=== PATIENT | female | born 1960 | race Caucasian/White ===

== ENCOUNTER 2020-05-01 08:18 | Outpatient (REF) | payer BC, SELFPAY ==
[2020-05-01 11:19] LABS: Hemoglobin 13.7 g/dl (12.0-16.0); Mean Corpuscular HGB Conc 31.9 g/dl (31.0-35.0); Mean Corpuscular Hemoglobin 26.8 pg (27.0-33.0); Mean Corpuscular Volume 84.1 fL (80-98); Mean Platelet Volume 10.1 fL (9.4-12.3); Platelet Count 272 X10*3/uL (160-400); Red Blood Count 5.11 X10*6/uL (4.20-5.50); Red Cell Distribution Width 13.8 % (11.0-16.0); White Blood Count 7.3 X10*3/uL (4.8-10.8)
[2020-05-01 11:25] LABS: Estimated Average Glucose 134 mg/dL; Hemoglobin A1c % 6.3 %
[2020-05-01 11:41] LABS: Alanine Aminotransferase 12 U/L (0-31); Albumin Level 4.2 g/dL (3.5-5.0); Alkaline Phosphatase 77 U/L (39-117); Anion Gap 13 (12-20); Aspartate Amino Transferase 16 U/L (5-31); Bilirubin Total 0.4 mg/dL (0.0-1.0); Blood Urea Nitrogen 19 mg/dL (9-16); Calcium 8.9 mg/dL (8.4-10.2); Carbon Dioxide 28 mmol/L (22-29); Chloride 104 mmol/L (96-108); Cholesterol 179 mg/dL; Estimated Glomerular Filt Rate 57; Glucose Fasting 105 mg/dL (60-99); HDL Cholesterol 44 mg/dL; LDL Cholesterol Calculated 117 mg/dl; Potassium 5.1 mmol/l (3.3-5.1); Sodium 140 mmol/L (135-145); Triglycerides 93 mg/dL
[2020-05-01 12:15] LABS: Creatinine Urine 113.46 mg/dL; Microalbumin Urine < 5.0 mg/L
== END 2020-05-01 08:19 | disposition home or self-care (01) ==
LOC: HO.HMGCLDS 08:18
PROVIDERS: PCP Internal Medicine; Visit Provider Internal Medicine
DX: M79.604 Pain in right leg (principal); I10 Essential (primary) hypertension; E11.9 Type 2 diabetes mellitus without complications; J45.30 Mild persistent asthma, uncomplicated; Z00.00 Encounter for general adult medical examination without abnormal findings; E66.01 Morbid (severe) obesity due to excess calories
CPT/HCPCS: 36415; 80053; 80061; 82043; 83036; 85027

== ENCOUNTER → 2020-09-16 12:46 | Outpatient (REF) | payer BC, SELFPAY ==
--- NOTE | 2020-09-16 13:00 | ECG_ITS ---
Hook-up date: 2020-09-16 13:13:00 Duration: 41:43:00 Test Indications: PALPITATIONS Medications: [id number] QRS complexes 5 Ventricular ectopics which represent <1 % of total QRS comp. 105 Supraventricular ectopics which represent <1 % of total QRS comp. * Paced QRS complexs which represent % of total QRS comp. VENTRICULAR ECTOPY 5 Isolated 0 Bigeminal Cycles 0 Couplets 0 Runs 0 Beats in Runs * Beats LONGEST at * BPM at :: -- * Beats FASTEST at * BPM at :: -- SUPRAVENTRICULAR ECTOPY 86 Isolated 2 Couplets 4 Runs 15 Beats in Runs 6 Beats LONGEST at 112 BPM at 21:28:15 2020-09-16 3 Beats FASTEST at 137 BPM at 07:52:01 2020-09-17 HEART RATES 47 MIN at 04:21:24 2020-09-17 75 AVG 121 MAX at 13:17:33 2020-09-16 LONGEST RR 1.4000 secs at 05:16:54 2020-09-17 S-T LEVELS Channel 1 - 128 mm at 13:13:00 2020-09-16 - 128 mm at 13:13:00 2020-09-16 Channel 2 - 128 mm at 13:13:00 2020-09-16 - 128 mm at 13:13:00 2020-09-16 Channel 3 - 128 mm at 03:23:21 -- - 128 mm at 03:23:21 Underlying rhythm is sinus; Average ventricular rate 75/min; range 47-121/min; Rare PACs; isolated beats, couplets, brief runs, longest 6 beats; Rare PVCs; No sustained arrhythmias; Patient did not report any symptoms in the diary Referred By: Amanda Eli Overread By: DELFINA TORRES
== END ==
LOC: HO.CARD 12:46
PROVIDERS: PCP Internal Medicine; Visit Provider Internal Medicine
DX: R00.2 Palpitations (principal)
CPT/HCPCS: 93225; 93226

== ENCOUNTER 2021-04-30 14:09 | Outpatient (REF) | payer BC, SELFPAY ==
--- NOTE | ~2021-04-30 | XR_ITS ---
EXAMINATION: XR SI JOINTS XR HIPS, BILATERAL CLINICAL INFORMATION: Pain sacrococcygeal disorder is not otherwise classified COMPARISON: None TECHNIQUE: 3 views of the SI joints including oblique imaging. 2 views of each hip. FINDINGS: SI Joints: There is no evidence of ankylosis. There is some mild sclerotic change involving the SI joints consistent with degenerative change. This is mostly occurring in the mid to lower SI joint region. Likely degeneration in the lower lumbosacral articulation. Right Hip: Detailed views of the right hip show the femoral head contour to be smooth. There is some axial and inferior joint space loss. Some marginal lipping in the acetabulum. Mild degeneration along the greater trochanter. Mild irregularity at the labral attachment may indicate degeneration here. Mild degeneration in the pubis articulation. Left Hip: Detailed views of the left hip show again some degenerative change along the greater trochanter. There is mild axial joint space loss. Minimal spurring marginally. Again some irregularity at the insertion of the labrum may indicate degeneration here. XR/XR sacroiliac joint 1-2V IMPRESSION: Some evidence of degenerative changes as described. As stated there is no evidence for ankylosis in the SI joints or evidence for an acute bony erosion. 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
--- NOTE | ~2021-04-30 | XR_ITS ---
EXAMINATION: XR SI JOINTS XR HIPS, BILATERAL CLINICAL INFORMATION: Pain sacrococcygeal disorder is not otherwise classified COMPARISON: None TECHNIQUE: 3 views of the SI joints including oblique imaging. 2 views of each hip. FINDINGS: SI Joints: There is no evidence of ankylosis. There is some mild sclerotic change involving the SI joints consistent with degenerative change. This is mostly occurring in the mid to lower SI joint region. Likely degeneration in the lower lumbosacral articulation. Right Hip: Detailed views of the right hip show the femoral head contour to be smooth. There is some axial and inferior joint space loss. Some marginal lipping in the acetabulum. Mild degeneration along the greater trochanter. Mild irregularity at the labral attachment may indicate degeneration here. Mild degeneration in the pubis articulation. Left Hip: Detailed views of the left hip show again some degenerative change along the greater trochanter. There is mild axial joint space loss. Minimal spurring marginally. Again some irregularity at the insertion of the labrum may indicate degeneration here. XR/XR hips SHIRLEY min 3V IMPRESSION: Some evidence of degenerative changes as described. As stated there is no evidence for ankylosis in the SI joints or evidence for an acute bony erosion. 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
== END 2021-04-30 14:10 | disposition home or self-care (01) ==
LOC: HO.HMGCX 14:09
PROVIDERS: PCP Internal Medicine; Visit Provider Internal Medicine
DX: M53.3 Sacrococcygeal disorders, not elsewhere classified (principal); M70.60 Trochanteric bursitis, unspecified hip
CPT/HCPCS: 72200; 73522

== ENCOUNTER 2021-10-13 11:50 | Outpatient (REF) | payer BC, SELFPAY ==
[2021-10-13 12:57] LABS: Influenza A PCR NEGATIVE (Negative); Influenza B PCR NEGATIVE (Negative); Resp Syncy Virus RNA Qual PCR NEGATIVE (Negative); SARS COV2 PCR INHOUSE NEGATIVE (Negative)
== END 2021-10-13 11:51 | disposition home or self-care (01) ==
LOC: HO.LNP 11:50
PROVIDERS: Visit Provider Emergency Medicine
DX: Z20.822 Contact with and (suspected) exposure to COVID-19 (principal); R68.89 Other general symptoms and signs
CPT/HCPCS: 0241U

== ENCOUNTER 2021-11-13 10:14 | Outpatient (REF) | payer BC, SELFPAY ==
[2021-11-13 11:46] LABS: Estimated Average Glucose 120 mg/dL; Hemoglobin A1c % 5.8 %
[2021-11-13 12:01] LABS: Alanine Aminotransferase 11 U/L (0-31); Albumin Level 4.2 g/dL (3.5-5.0); Alkaline Phosphatase 75 U/L (39-117); Anion Gap 13 (12-20); Aspartate Amino Transferase 15 U/L (5-31); Bilirubin Total 0.6 mg/dL (0.0-1.0); Blood Urea Nitrogen 13 mg/dL (9-16); Calcium 9.1 mg/dL (8.4-10.2); Carbon Dioxide 26 mmol/L (22-29); Chloride 105 mmol/L (96-108); Cholesterol 184 mg/dL; Estimated Glomerular Filt Rate > 60; Glucose Fasting 89 mg/dL (60-99); HDL Cholesterol 45 mg/dL; LDL Cholesterol Calculated 124 mg/dl; Potassium 4.1 mmol/L (3.3-5.1); Sodium 140 mmol/L (135-145); Total Protein 6.9 g/dL (6.5-8.0); Triglycerides 75 mg/dL
[2021-11-13 12:08] LABS: Creatinine Urine 162.88 mg/dL; Microalbum/Creatinine Ratio Ur 4.2 ug/mg cr
== END 2021-11-13 10:15 | disposition home or self-care (01) ==
LOC: HO.HMGCLDS 10:14
PROVIDERS: PCP Internal Medicine; Visit Provider Internal Medicine
DX: Z00.00 Encounter for general adult medical examination without abnormal findings (principal); E11.9 Type 2 diabetes mellitus without complications; I10 Essential (primary) hypertension; Z98.890 Other specified postprocedural states
CPT/HCPCS: 36415; 80053; 80061; 82043; 83036

== ENCOUNTER 2022-02-05 08:22 | Outpatient (REF) | payer BC, SELFPAY ==
[2022-02-05 11:27] LABS: Estimated Average Glucose 120 mg/dL; Hemoglobin A1C 149.9073 umol/L; Hemoglobin A1c % 5.8 %
[2022-02-05 11:33] LABS: Alanine Aminotransferase 13 U/L (0-31); Albumin Level 4.2 g/dL (3.5-5.0); Alkaline Phosphatase 86 U/L (39-117); Anion Gap 14 (12-20); Aspartate Amino Transferase 16 U/L (5-31); Bilirubin Total 0.5 mg/dL (0.0-1.0); Blood Urea Nitrogen 15 mg/dL (9-16); Calcium 9.3 mg/dL (8.4-10.2); Carbon Dioxide 28 mmol/L (22-29); Chloride 105 mmol/L (96-108); Cholesterol 177 mg/dL; Estimated Glomerular Filt Rate 59; Glucose Fasting 96 mg/dL (60-99); HDL Cholesterol 45 mg/dL; LDL Cholesterol Calculated 119 mg/dl; Sodium 142 mmol/L (135-145); Triglycerides 66 mg/dL
== END 2022-02-05 08:23 | disposition home or self-care (01) ==
LOC: HO.HMGCLDS 08:22
PROVIDERS: PCP Internal Medicine; Visit Provider Internal Medicine
DX: E11.9 Type 2 diabetes mellitus without complications (principal); I10 Essential (primary) hypertension
CPT/HCPCS: 36415; 80053; 80061; 83036

== ENCOUNTER 2022-08-20 07:29 | Outpatient (REF) | payer BC, SELFPAY ==
[2022-08-20 12:35] LABS: Estimated Average Glucose 114 mg/dL; Hemoglobin A1C 150.6649 umol/L; Hemoglobin A1c % 5.6 %
[2022-08-20 12:42] LABS: Alanine Aminotransferase 11 U/L (0-31); Albumin Level 4.1 g/dL (3.5-5.0); Alkaline Phosphatase 96 U/L (39-117); Anion Gap 13 (12-20); Aspartate Amino Transferase 16 U/L (5-31); Bilirubin Total 0.5 mg/dL (0.0-1.0); Blood Urea Nitrogen 17 mg/dL (9-16); Calcium 9.4 mg/dL (8.4-10.2); Carbon Dioxide 28 mmol/L (22-29); Chloride 108 mmol/L (96-108); Cholesterol 189 mg/dL; Estimated Glomerular Filt Rate 59; Glucose Fasting 100 mg/dL (60-99); HDL Cholesterol 46 mg/dL; LDL Cholesterol Calculated 128 mg/dl; Potassium 5.3 mmol/L (3.3-5.1); Sodium 144 mmol/L (135-145); Total Protein 6.8 g/dL (6.5-8.0); Triglycerides 77 mg/dL
[2022-08-20 12:50] LABS: Creatinine Urine 127.22 mg/dL; Microalbumin Urine < 5.0 mg/L
[2022-08-20 13:00] LABS: TSH reflex Free T4 0.86 uIU/mL (0.32-4.0)
== END 2022-08-20 07:30 | disposition home or self-care (01) ==
LOC: HO.HMGCLDS 07:29
PROVIDERS: PCP Internal Medicine; Visit Provider Internal Medicine
DX: I10 Essential (primary) hypertension (principal); E11.9 Type 2 diabetes mellitus without complications
CPT/HCPCS: 36415; 80053; 80061; 82043; 83036; 84443

== ENCOUNTER 2022-08-31 14:49 | Outpatient (REF) | payer BC, SELFPAY ==
[2022-08-31 17:43] LABS: Anion Gap 14 (12-20); Blood Urea Nitrogen 19 mg/dL (9-16); Calcium 9.1 mg/dL (8.4-10.2); Carbon Dioxide 26 mmol/L (22-29); Chloride 105 mmol/L (96-108); Estimated Glomerular Filt Rate > 60; Glucose Random 90 mg/dL (60-115); Potassium 4.3 mmol/L (3.3-5.1); Sodium 141 mmol/L (135-145)
== END 2022-08-31 14:50 | disposition home or self-care (01) ==
LOC: HO.HMGCLDS 14:49
PROVIDERS: PCP Internal Medicine; Visit Provider Internal Medicine
DX: E87.5 Hyperkalemia (principal)
CPT/HCPCS: 36415; 80048

== ENCOUNTER 2022-12-08 13:40 | Outpatient (AMB) | payer BC, SELFPAY ==
[2022-12-08 13:45] VITALS: BP 118/70; PULSE 80; O2SAT 98; BMI 40.2
--- NOTE | 2022-12-08 13:45 | A.OFFPC_ITS ---
Vital Signs 12/08/22 13:45 Height 5 ft 4 in Weight 234 lb BMI 40.2 BP 118/70 Blood Pressure Location Lt brachial Position Sitting Pulse 80 Pulse Source Pulse Oximeter Pulse Oximetry (%) 98 Oxygen Delivery Method Room Air Intake Visit Reasons: not feeling well Intake Note: Pt is here today for a sick visit. Pt c/o hemorrhoid problem. Allergies lisinopril Adverse Reaction (Unknown, Verified 08/23/22 12:44) Cough Medication List - Last Reconciled 12/08/22 by Amanda Eli MD albuterol sulfate 90 mcg/actuation 2 puffs inhalation Q6H blood sugar diagnostic (Contour Test Strips) test glucose once a day dulaglutide (Trulicity) 0.75 mg (0.5 mL) subcut QWEEK empagliflozin-linagliptin 25-5 mg (Glyxambi) 1 tab PO DAILY estradiol 0.01%(0.1mg/gram) (Estrace) 1 g vaginal 3XW fluticasone propion-salmeterol 115-21 mcg/actuation (Advair HFA) 2 puffs inhalation BID fluticasone propionate 50 mcg/actuation 0 mcg intranasal hydrocortisone 2.5% 1 appl topical BID PRN hydrocortisone acetate (Proctocort) 30 mg [place] BID hydrocortisone acetate 25 mg [place] BID lancets test blood sugar twice a day metoprolol succinate ER 25 mg PO DAILY montelukast 10 mg PO BEDTIME nystatin 1 appl topical BID nystatin 1 appl topical DAILY olmesartan 20 mg PO DAILY Tobacco use date assessed: 12/08/22 Dental Screening Dental Screen Date: 12/08/22 Did you have a dental visit in the last 12 months?: Yes Did you have a dental problem in the last 6 months where you did not have access to dental care?: No Was dental information given to patient?: Patient has dentist HPI not feeling well HPI Details Pt c/o LLQ abd pain on and off for 1 month getting worse for the last few days. Patient reports some nausea decreased appetite and chills. She had a bowel movement with some hematochezia this morning. She denies constipation dysuria or urinary frequency PFSH Medical History Annual physical exam Asthma Atrophic vaginitis Back pain Chronic asthma Hypertension Mammogram normal Neck pain Normal colonoscopy Obesity Palpitations Pulmonary nodules/lesions, multiple Sacroiliac joint disease Shoulder pain, right Trochanteric bursitis Type 2 diabetes mellitus Surgical History Hx of colonoscopy No pertinent past surgical history Family History Father No problems noted. Mother Stroke Son No problems noted. Daughter No problems noted. Social History Housing: House Patient Tobacco Use Status: Never used Tobacco e-Cigarette/Vaping Use: Never Used Second Hand Smoke Exposure: No service: No Current occupational status: employed Current occupational exposures/hazards: No Cognitive needs: No Hearing needs: No Vision needs: No Questionnaire Thrive Questionnaire Date Thrive assessed: 08/23/22 WISAM-7 AMB Questionnaire WISAM-7 Date WISAM - 7 assessed: 08/23/22 Source: Developed by Drs. Gildardo Tomlinson, Claudia Hernandes, González Mason and colleagues, with an educational robyn from [employer]. Review of Systems Const All systems reviewed & are unremarkable except as noted in HPI and below Reports no additional complaints Eyes Reports no additional complaints ENT Reports no additional complaints Card Reports no additional complaints Resp Reports no additional complaints GI Reports no additional complaints Physical exam (Primary Care) Vital Signs: Last Vital Signs Pulse 80 12/08/22 13:45 BP 118/70 12/08/22 13:45 Pulse Ox 98 12/08/22 13:45 Oxygen Delivery Method Room Air 12/08/22 13:45 BMI result Body Mass Index 40.2 Tobacco/Smoking Status: Tobacco use Status Tobacco use date assessed 12/08/22 12/08/22 13:53 Patient Tobacco Use Status Never used Tobacco 12/08/22 13:48 e-Cigarette/Vaping Use Never Used 12/08/22 13:48 Thrive Assessment: Date of Thrive Assessment Date Thrive assessed 08/23/22 12/08/22 13:48 Const General: no acute distress Resp Effort & Inspection: normal respiratory effort Auscultation: clear to auscultation bilaterally Cardio Rhythm: regular rhythm Heart sounds: S1 normal heart sound present and S2 normal heart sound present GI Inspection: Yes normal to inspection Palpation (GI): Soft to palpation, Tenderness to palpation present (GI) in the LLQ and no guarding Percussion: Yes normal to percussion Auscultation: normal bowel sounds Rectal Exam - Female: deferred Assessment and Plan Assessment & Plan (1) Abdominal pain: Comment: LLQ Code(s): R10.9 - Unspecified abdominal pain Plan: Obtain CT of the abdomen pelvis to rule out diverticulitis. Check comprehensive panel and CBC today (2) Diverticulitis: Code(s): K57.92 - Diverticulitis of intestine, part unspecified, without perforation or abscess without bleeding Plan: Obtain CT to rule out diverticulitis Orders: Orders Comprehensive Met. Panel Today R10.9 - Unspecified abdominal pain Complete Blood Count Auto Diff Today R10.9 - Unspecified abdominal pain CT abdomen pelvis wo IV con Today K57.92 - Diverticulitis of intestine, part unspecified, without perforation or abscess without bleeding, R10.9 - Unspecified abdominal pain Medications: New hydrocortisone 2.5% 1 appl topical BID PRN 30 grams 1RF skin irritation Coding Level of Care Code Est Pt Level 3 (29289) Diagnoses Abdominal pain R10.9 Diverticulitis K57.92
== END 2022-12-08 14:15 | disposition home or self-care (01) ==
PROVIDERS: PCP Internal Medicine; Visit Provider Internal Medicine
DX: R10.9 Unspecified abdominal pain (principal); K57.92 Diverticulitis of intestine, part unspecified, without perforation or abscess without bleeding
CPT/HCPCS: 99213

== ENCOUNTER 2022-12-08 14:14 | Outpatient (REF) | payer BC, SELFPAY ==
[2022-12-08 16:07] LABS: MANUAL DIFF FLAG NO
[2022-12-08 16:16] LABS: Basophils Absolute Auto 0.1 X10*3/uL (0.0-0.2); Basophils Percent Auto 0.8 % (0-2); Eosinophils Absolute Auto 0.2 X10*3/uL (0.0-0.4); Eosinophils Percent Auto 1.8 % (0-4); Hematocrit 46.1 % (37.0-47.0); Hemoglobin 14.1 g/dl (12.0-16.0); Imm Gran Abs Auto 0.03 X10*3/uL (0.00-0.03); Imm Gran Pct Auto 0.3 % (0.0-0.4); Lymphocytes Absolute Auto 2.1 X10*3/uL (1.2-4.9); Lymphocytes Percent Auto 24.2 % (20-40); Mean Corpuscular HGB Conc 30.6 g/dl (31.0-35.0); Mean Corpuscular Volume 84.9 fL (80.0-98.0); Mean Platelet Volume 9.6 fL (9.4-12.3); Monocytes Absolute Auto 0.8 X10*3/uL (0.1-1.2); Monocytes Percent Auto 8.8 % (2-11); Neutrophils Absolute Auto 5.6 x10*3/uL (2.0-8.3); Neutrophils Percent Auto 64.1 % (45-73); Platelet Count 248 X10*3/uL (160-400); Red Blood Count 5.43 X10*6/uL (4.20-5.50); Red Cell Distribution Width 13.7 % (11.0-16.0); White Blood Count 8.7 X10*3/uL (4.8-10.8)
[2022-12-08 16:37] LABS: Alanine Aminotransferase 10 U/L (0-31); Albumin Level 4.3 g/dL (3.5-5.0); Alkaline Phosphatase 84 U/L (39-117); Anion Gap 12 (12-20); Aspartate Amino Transferase 17 U/L (5-31); Bilirubin Total 0.3 mg/dL (0.0-1.0); Blood Urea Nitrogen 16 mg/dL (9-16); Calcium 9.7 mg/dL (8.4-10.2); Carbon Dioxide 28 mmol/L (22-29); Chloride 105 mmol/L (96-108); Estimated Glomerular Filt Rate 53; Glucose Random 106 mg/dL (60-115); Potassium 4.5 mmol/L (3.3-5.1); Sodium 140 mmol/L (135-145); Total Protein 7.5 g/dL (6.5-8.0)
== END 2022-12-08 14:15 | disposition home or self-care (01) ==
LOC: HO.HMGCLDS 14:14
PROVIDERS: PCP Internal Medicine; Visit Provider Internal Medicine
DX: R10.9 Unspecified abdominal pain (principal)
CPT/HCPCS: 36415; 80053; 85025

== ENCOUNTER 2022-12-09 12:57 | Outpatient (REF) | payer BC, SELFPAY ==
--- NOTE | ~2022-12-09 | CT_ITS ---
EXAMINATION: CT ABDOMEN AND PELVIS WITHOUT CONTRAST CLINICAL INFORMATION: Diverticulitis. COMPARISON: None available. TECHNIQUE: Multidetector volumetric imaging was performed from the superior aspect of the liver through the pubic symphysis. Sagittal and coronal reformatted images were obtained on the technologist's workstation. This CT examination was performed using dose optimization techniques as appropriate, variously including the following: *Automated exposure control *Adjustment of mA and/or kV according to patient size (this includes techniques or standardized protocols for targeted exams where dose is matched to indication/reason for exam; i.e. extremities or head) *Use of iterative reconstruction technique DLP: 760 mGy-cm FINDINGS: LUNG BASES: The visualized lung bases are unremarkable. LIVER, GALLBLADDER, AND BILIARY TREE: The liver is normal in size, shape, and attenuation. No focal hepatic lesion or biliary ductal dilatation is present. Cholecystectomy. PANCREAS: Unremarkable. SPLEEN: Unremarkable. ADRENAL GLANDS: Unremarkable. KIDNEYS AND URETERS: The kidneys are normal in size, shape, and attenuation. No hydronephrosis, hydroureter, or calculi seen. No perinephric stranding. BLADDER: Unremarkable. GASTROINTESTINAL TRACT: The stomach is unremarkable. Normal caliber small bowel. No obstruction. Normal appendix. No colonic wall thickening or inflammation. Minimal colonic diverticulosis at the sigmoid colon. No diverticulitis. No free air or free fluid. ABDOMINAL WALL: No significant hernia is appreciated. LYMPH NODES: Normal. VASCULAR: Normal caliber aorta. Retroaortic left renal vein. PELVIC VISCERA: Uterus not seen. No adnexal mass. OSSEOUS STRUCTURES: No acute or suspicious osseous abnormality. Mild degenerative change throughout the spine. Mild degenerative change in both hips. CT/CT abdomen pelvis wo IV con IMPRESSION: No acute findings in the abdomen or pelvis. Minimal colonic diverticulosis without diverticulitis. Fleischner guidelines were followed.
[2022-12-09] MEDS: Barium Sulfate Oral (Vanilla) 450 ML ORAL.SUSP 900 ML PO (15:19)
== END 2022-12-09 12:58 | disposition home or self-care (01) ==
LOC: HO.CT 12:57
PROVIDERS: PCP Internal Medicine; Visit Provider Internal Medicine
DX: K57.92 Diverticulitis of intestine, part unspecified, without perforation or abscess without bleeding (principal); R10.9 Unspecified abdominal pain
CPT/HCPCS: 74176

== ENCOUNTER 2022-12-29 06:49 | Outpatient (REF) | payer BC, SELFPAY ==
[2022-12-29 11:25] LABS: MANUAL DIFF FLAG NO
[2022-12-29 12:03] LABS: Basophils Percent Auto 0.7 % (0-2); Eosinophils Absolute Auto 0.1 X10*3/uL (0.0-0.4); Eosinophils Percent Auto 1.5 % (0-4); Hematocrit 47.4 % (37.0-47.0); Hemoglobin 14.8 g/dl (12.0-16.0); Imm Gran Abs Auto 0.02 X10*3/uL (0.00-0.03); Imm Gran Pct Auto 0.3 % (0.0-0.4); Lymphocytes Absolute Auto 1.8 X10*3/uL (1.2-4.9); Lymphocytes Percent Auto 30.7 % (20-40); Mean Corpuscular HGB Conc 31.2 g/dl (31.0-35.0); Mean Corpuscular Hemoglobin 26.4 pg (27.0-33.0); Mean Corpuscular Volume 84.6 fL (80.0-98.0); Mean Platelet Volume 9.8 fL (9.4-12.3); Monocytes Absolute Auto 0.6 X10*3/uL (0.1-1.2); Monocytes Percent Auto 9.3 % (2-11); Neutrophils Absolute Auto 3.4 x10*3/uL (2.0-8.3); Neutrophils Percent Auto 57.5 % (45-73); Platelet Count 233 X10*3/uL (160-400); Red Cell Distribution Width 13.8 % (11.0-16.0); White Blood Count 5.9 X10*3/uL (4.8-10.8)
[2022-12-29 12:08] LABS: Estimated Average Glucose 111 mg/dL; Hemoglobin A1C 145.3914 umol/L; Hemoglobin A1c % 5.5 %
[2022-12-29 12:24] LABS: Alanine Aminotransferase 12 U/L (0-31); Albumin Level 4.4 g/dL (3.5-5.0); Alkaline Phosphatase 78 U/L (39-117); Anion Gap 14 (12-20); Aspartate Amino Transferase 17 U/L (5-31); Bilirubin Total 0.6 mg/dL (0.0-1.0); Blood Urea Nitrogen 15 mg/dL (9-16); Calcium 10.3 mg/dL (8.4-10.2); Carbon Dioxide 27 mmol/L (22-29); Chloride 105 mmol/L (96-108); Cholesterol 203 mg/dL; Estimated Glomerular Filt Rate 55; Glucose Fasting 103 mg/dL (60-99); HDL Cholesterol 52 mg/dL; LDL Cholesterol Calculated 133 mg/dl; Potassium 5.1 mmol/L (3.3-5.1); Sodium 141 mmol/L (135-145); Total Protein 7.8 g/dL (6.5-8.0); Triglycerides 93 mg/dL
[2022-12-29 12:31] LABS: TSH reflex Free T4 0.96 uIU/mL (0.32-4.0)
[2022-12-29 12:51] LABS: Creatinine Urine 138.45 mg/dL; Microalbum/Creatinine Ratio Ur 3.6 ug/mg cr
== END 2022-12-29 06:50 | disposition home or self-care (01) ==
LOC: HO.HMGCLDS 06:49
PROVIDERS: PCP Internal Medicine; Visit Provider Internal Medicine
DX: E11.9 Type 2 diabetes mellitus without complications (principal); I10 Essential (primary) hypertension
CPT/HCPCS: 36415; 80053; 80061; 82043; 83036; 84443; 85025

== ENCOUNTER 2023-01-02 13:58 | Outpatient (AMB) | payer BC, SELFPAY ==
--- NOTE | 2023-01-02 14:21 | MHC.PC.OV ---
Vital Signs 01/02/23 14:45 Height 5 ft 4 in Weight 237 lb BMI 40.7 BP 116/70 Blood Pressure Location Lt brachial Position Sitting Pulse 86 Pulse Source Pulse Oximeter Pulse Oximetry (%) 96 Oxygen Delivery Method Room Air Intake Visit Reasons: 4 month follow up DM Intake Note: Pt is here today for 4 months follow up visit on DM. Allergies lisinopril Adverse Reaction (Unknown, Verified 08/23/22 12:44) Cough Medication List - Last Reconciled 01/02/23 by Amanda Eli MD albuterol sulfate 90 mcg/actuation 2 puffs inhalation Q6H blood sugar diagnostic (Contour Test Strips) test glucose once a day dicyclomine 10 mg PO TID empagliflozin 25 mg PO DAILY estradiol 0.01%(0.1mg/gram) (Estrace) 1 g vaginal 3XW fluticasone propion-salmeterol 115-21 mcg/actuation (Advair HFA) 2 puffs inhalation BID fluticasone propionate 50 mcg/actuation 0 mcg intranasal hydrocortisone 2.5% 1 appl topical BID PRN hydrocortisone acetate (Proctocort) 30 mg [place] BID hydrocortisone acetate 25 mg VA BID lancets test blood sugar twice a day metoprolol succinate ER 25 mg PO DAILY montelukast 10 mg PO BEDTIME nystatin 1 appl topical BID nystatin 1 appl topical DAILY olmesartan 20 mg PO DAILY Trulicity (dulaglutide) 1.5 mg (0.5 mL) subcut QWEEK NS Tobacco use date assessed: 12/08/22 Dental Screening Dental Screen Date: 01/02/23 Did you have a dental visit in the last 12 months?: Yes Did you have a dental problem in the last 6 months where you did not have access to dental care?: No Was dental information given to patient?: Patient has dentist HPI 4 month follow up DM HPI Details Patient presents for the follow-up of diabetes hypertension, chronic asthma stable on current medications [facility] Medical History Annual physical exam Asthma Atrophic vaginitis Back pain Chronic asthma Hypertension Mammogram normal Neck pain Normal colonoscopy Obesity Palpitations Pulmonary nodules/lesions, multiple Sacroiliac joint disease Shoulder pain, right Trochanteric bursitis Type 2 diabetes mellitus Surgical History Hx of colonoscopy No pertinent past surgical history Family History Father No problems noted. Mother Stroke Son No problems noted. Daughter No problems noted. Social History Housing: House Patient Tobacco Use Status: Never used Tobacco e-Cigarette/Vaping Use: Never Used Second Hand Smoke Exposure: No service: No Current occupational status: employed Current occupational exposures/hazards: No Cognitive needs: No Hearing needs: No Vision needs: No Questionnaire Thrive Questionnaire Date Thrive assessed: 08/23/22 WISAM-7 AMB Questionnaire WISAM-7 Date WISAM - 7 assessed: 08/23/22 Source: Developed by Drs. Gildardo Tomlinson, Claudia Hernandes, González Mason and colleagues, with an educational robyn from [employer]. Review of Systems Const All systems reviewed & are unremarkable except as noted in HPI and below Reports no additional complaints Eyes Reports no additional complaints ENT Reports no additional complaints Card Reports no additional complaints Resp Reports no additional complaints GI Reports no additional complaints Physical exam (Primary Care) Vital Signs: Last Vital Signs Pulse 86 01/02/23 14:45 BP 116/70 01/02/23 14:45 Pulse Ox 96 01/02/23 14:45 Oxygen Delivery Method Room Air 01/02/23 14:45 BMI result Body Mass Index 40.7 Tobacco/Smoking Status: Tobacco use Status Tobacco use date assessed 12/08/22 01/02/23 14:22 Patient Tobacco Use Status Never used Tobacco 01/02/23 14:22 e-Cigarette/Vaping Use Never Used 01/02/23 14:22 Thrive Assessment: Date of Thrive Assessment Date Thrive assessed 08/23/22 01/02/23 14:22 Const General: no acute distress HENMT Ears: hearing grossly normal bilaterally Face and sinus: Yes normal facial exam Neck Neck: Yes supple Resp Effort & Inspection: normal respiratory effort Auscultation: clear to auscultation bilaterally Cardio Rhythm: regular rhythm Heart sounds: S1 normal heart sound present and S2 normal heart sound present GI Inspection: Yes normal to inspection Palpation (GI): Soft to palpation Assessment and Plan Assessment & Plan (1) Type 2 diabetes mellitus: Code(s): E11.9 - Type 2 diabetes mellitus without complications Plan: A1c is 5.5 change Glyxambi to Farxiga 25 mg and increase Trulicity to 1.5 mg weekly decrease caloric intake increase physical activity discussed with the patient. She will follow-up in 3 months (2) Hypertension: Code(s): I10 - Essential (primary) hypertension Plan: Continue current medications (3) Asthma: Code(s): J45.909 - Unspecified asthma, uncomplicated Plan: Continue inhalers (4) Obesity: Code(s): E66.9 - Obesity, unspecified Plan: Weight loss discussed with the patient (5) Hyperlipidemia: Code(s): E78.5 - Hyperlipidemia, unspecified Plan: Low-cholesterol diet weight loss increase exercise discussed with the patient follow-up in 3 months with fasting labs before Orders: Orders Comprehensive Wirt. Panel Fast 3 Months E11.9 - Type 2 diabetes mellitus without complications, I10 - Essential (primary) hypertension Complete Blood Count Auto Diff 3 Months E11.9 - Type 2 diabetes mellitus without complications, I10 - Essential (primary) hypertension Hemoglobin A1c 3 Months E11.9 - Type 2 diabetes mellitus without complications, I10 - Essential (primary) hypertension Lipid Panel 3 Months E11.9 - Type 2 diabetes mellitus without complications, I10 - Essential (primary) hypertension Microalbumin, Random (w Creat) 3 Months E11.9 - Type 2 diabetes mellitus without complications, I10 - Essential (primary) hypertension Medications: New Trulicity (dulaglutide) 1.5 mg (0.5 mL) subcut QWEEK 6 mL 3RF NS empagliflozin 25 mg PO DAILY 90 tabs 1RF Discontinued empagliflozin-linagliptin 25-5 mg (Glyxambi) Discontinued Reason: Doctor's Order 1 tab PO DAILY 90 tabs 3RF dulaglutide (Trulicity) Discontinued Reason: Doctor's Order 0.75 mg (0.5 mL) subcut QWEEK 6 mL 3RF dicyclomine Future refills from [facility] Discontinued Reason: Doctor's Order 10 mg PO TID 60 caps 0RF Coding Level of Care Code Est Pt Level 4 (79962) Diagnoses Type 2 diabetes mellitus E11.9 Hypertension I10 Asthma J45.909 Obesity E66.9 Hyperlipidemia E78.5
[2023-01-02 14:45] VITALS: BP 116/70; PULSE 86; O2SAT 96; BMI 40.7
== END 2023-01-02 15:26 | disposition home or self-care (01) ==
PROVIDERS: Visit Provider Internal Medicine
DX: E11.9 Type 2 diabetes mellitus without complications (principal); I10 Essential (primary) hypertension; E66.9 Obesity, unspecified; Z68.41 Body mass index [BMI] 40.0-44.9, adult; J45.909 Unspecified asthma, uncomplicated; E78.5 Hyperlipidemia, unspecified
CPT/HCPCS: 99214

== ENCOUNTER 2023-03-06 14:52 | Outpatient (AMB) | payer BC, SELFPAY ==
--- NOTE | 2023-03-06 14:57 | AM.OFFVISNUR ---
Intake Intake Visit Reasons: Flu shot Allergies lisinopril Adverse Reaction (Unknown, Verified 08/23/22 12:44) Cough Office Procedures Flu Questionnaire Does the patient have a severe egg allergy?: No Does the patient have severe life threatening allergies?: No Does the patient have a fever or illness today?: No Has the patient ever had Guillain-Davenport Syndrome?: No Has the patient ever had any past reaction to a flu shot?: No Immunizations flu vacc [id number] 6mos up(PF) 60 mcg(15 mcgx4)/0.5 mL IM syringe Performing Provider: Amanda Eli MD Performing [place] [facility] Administered by: JANEEN Billingsley on 03/06/23 14:57 Dose Route Admin Location Dispensed Lot Number Expiration Date NDC [employer] 0.5 mL IM Left Deltoid 0.5 mL [id number] 11/19/23 [id number] [employer] VIS Given Date VIS Provided VIS Publication Date 03/06/23 Single Vaccine 20 Eligibility Eligibility Date Funding Source Not [facility] Eligible 03/06/23 Private Coding Assessment & Plan Assessment & Plan Orders: Orders Influenza [id number] Immunization Today Z23 - Encounter for immunization
== END 2023-03-06 14:58 | disposition home or self-care (01) ==
LOC: HO.HMGC 14:52
PROVIDERS: PCP Internal Medicine; Visit Provider Internal Medicine
DX: Z23 Encounter for immunization (principal)
CPT/HCPCS: 90471; 90686

== ENCOUNTER 2023-04-01 10:13 | Outpatient (REF) | payer BC, SELFPAY ==
[2023-04-01 12:02] LABS: MANUAL DIFF FLAG NO
[2023-04-01 12:12] LABS: Basophils Absolute Auto 0.1 X10*3/uL (0.0-0.2); Basophils Percent Auto 0.6 % (0-2); Eosinophils Absolute Auto 0.1 X10*3/uL (0.0-0.4); Eosinophils Percent Auto 1.1 % (0-4); Hematocrit 45.2 % (37.0-47.0); Hemoglobin 14.3 g/dl (12.0-16.0); Imm Gran Abs Auto 0.02 X10*3/uL (0.00-0.03); Imm Gran Pct Auto 0.2 % (0.0-0.4); Lymphocytes Absolute Auto 2.5 X10*3/uL (1.2-4.9); Lymphocytes Percent Auto 30.1 % (20-40); Mean Corpuscular HGB Conc 31.6 g/dl (31.0-35.0); Mean Corpuscular Hemoglobin 26.8 pg (27.0-33.0); Mean Corpuscular Volume 84.6 fL (80.0-98.0); Mean Platelet Volume 10.1 fL (9.4-12.3); Monocytes Absolute Auto 0.7 X10*3/uL (0.1-1.2); Monocytes Percent Auto 8.4 % (2-11); Neutrophils Absolute Auto 4.9 x10*3/uL (2.0-8.3); Neutrophils Percent Auto 59.6 % (45-73); Platelet Count 249 X10*3/uL (160-400); Red Blood Count 5.34 X10*6/uL (4.20-5.50); Red Cell Distribution Width 13.8 % (11.0-16.0); White Blood Count 8.2 X10*3/uL (4.8-10.8)
[2023-04-01 12:19] LABS: Estimated Average Glucose 117 mg/dL; Hemoglobin A1c % 5.7 % (<6.0)
[2023-04-01 12:28] LABS: Alanine Aminotransferase 11 U/L (0-31); Albumin Level 4.2 g/dL (3.5-5.0); Alkaline Phosphatase 75 U/L (39-117); Anion Gap 11 (12-20); Aspartate Amino Transferase 18 U/L (5-31); Bilirubin Total 0.5 mg/dL (0.0-1.0); Blood Urea Nitrogen 16 mg/dL (9-16); Calcium 9.4 mg/dL (8.4-10.2); Carbon Dioxide 28 mmol/L (22-29); Chloride 103 mmol/L (96-108); Cholesterol 170 mg/dL (<200); Estimated Glomerular Filt Rate > 60; Glucose Fasting 86 mg/dL (60-99); HDL Cholesterol 44 mg/dL (>40); LDL Cholesterol Calculated 113 mg/dL (<100); Potassium 4.3 mmol/L (3.3-5.1); Sodium 138 mmol/L (135-145); Total Protein 7.3 g/dL (6.5-8.0); Triglycerides 65 mg/dL (<150)
[2023-04-01 13:37] LABS: Creatinine Urine 111.12 mg/dL; Microalbumin Urine < 5.0 mg/L
== END 2023-04-01 10:14 | disposition home or self-care (01) ==
LOC: HO.HMGCLDS 10:13
PROVIDERS: PCP Internal Medicine; Visit Provider Internal Medicine
DX: I10 Essential (primary) hypertension (principal); E11.9 Type 2 diabetes mellitus without complications
CPT/HCPCS: 36415; 80053; 80061; 82043; 82570; 83036; 85025

== ENCOUNTER 2023-04-07 14:13 | Outpatient (AMB) | payer BC, SELFPAY ==
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
[2023-04-07 14:51] VITALS: BP 120/70; PULSE 81; O2SAT 99; BMI 39.1
== END 2023-04-07 15:18 | disposition home or self-care (01) ==
LOC: HO.HMGC 14:13
PROVIDERS: PCP Internal Medicine; Visit Provider Internal Medicine
DX: E11.9 Type 2 diabetes mellitus without complications (principal); I10 Essential (primary) hypertension; M25.551 Pain in right hip; M25.552 Pain in left hip; E66.9 Obesity, unspecified; E78.5 Hyperlipidemia, unspecified; Z68.39 Body mass index [BMI] 39.0-39.9, adult
CPT/HCPCS: 99214

== ENCOUNTER 2023-04-07 15:16 | Outpatient (REF) | payer BC, SELFPAY ==
--- NOTE | ~2023-04-07 | XR_ITS ---
EXAMINATION: XR HIP, LEFT CLINICAL INFORMATION: Pain COMPARISON: Hip radiographs 04/30/2021 TECHNIQUE: Two views of the left hip. FINDINGS: No acute fracture or dislocation. Mild osteoarthritis of the hip with small acetabular osteophytes and subchondral cystic change similar to prior. Soft tissues are unremarkable. XR/XR hip LT min 2V IMPRESSION: Mild degenerative changes of the hip similar to prior.
--- NOTE | ~2023-04-07 | XR_ITS ---
EXAMINATION: XR HIP, RIGHT CLINICAL INFORMATION: Bilateral hip pain. COMPARISON: 04/30/2021 radiographs of bilateral hips. TECHNIQUE: Two views of the right hip. FINDINGS: Axial and lateral right hip joint space narrowing with prominent lateral acetabular hypertrophic change. Soft tissue ossific/calcific densities superior to the greater trochanter. Degenerative changes on limited views of the inferior aspect of the right sacroiliac joint. XR/XR hip RT min 2V IMPRESSION: Advanced degenerative changes in the right hip, progressed since 04/30/2021. Correlation with the clinical exam recommended to determine further management. If there is concern for fracture or other underlying pathology, MRI could be obtained for further evaluation.
== END 2023-04-07 15:17 | disposition home or self-care (01) ==
LOC: HO.HMGCX 15:16
PROVIDERS: PCP Internal Medicine; Visit Provider Internal Medicine
DX: M25.552 Pain in left hip (principal); M25.551 Pain in right hip
CPT/HCPCS: 73502

== ENCOUNTER 2023-08-12 07:12 | Outpatient (REF) | payer BC, SELFPAY ==
[2023-08-12 11:12] LABS: MANUAL DIFF FLAG NO
[2023-08-12 11:22] LABS: Basophils Percent Auto 0.2 % (0-2); Hematocrit 47.2 % (37.0-47.0); Hemoglobin 14.9 g/dl (12.0-16.0); Imm Gran Abs Auto 0.05 X10*3/uL (0.00-0.03); Imm Gran Pct Auto 0.5 % (0.0-0.4); Lymphocytes Absolute Auto 1.4 X10*3/uL (1.2-4.9); Lymphocytes Percent Auto 12.5 % (20-40); Mean Corpuscular HGB Conc 31.6 g/dl (31.0-35.0); Mean Corpuscular Hemoglobin 27.8 pg (27.0-33.0); Mean Corpuscular Volume 88.1 fL (80.0-98.0); Mean Platelet Volume 10.2 fL (9.4-12.3); Monocytes Absolute Auto 0.6 X10*3/uL (0.1-1.2); Monocytes Percent Auto 5.3 % (2-11); Neutrophils Percent Auto 81.5 % (45-73); Platelet Count 275 X10*3/uL (160-400); Red Blood Count 5.36 X10*6/uL (4.20-5.50); Red Cell Distribution Width 14.5 % (11.0-16.0)
[2023-08-12 11:30] LABS: Estimated Average Glucose 111 mg/dL; Hemoglobin A1c % 5.5 % (<6.0)
[2023-08-12 11:44] LABS: Alanine Aminotransferase 27 U/L (0-31); Albumin Level 4.3 g/dL (3.5-5.0); Alkaline Phosphatase 94 U/L (39-117); Anion Gap 14 (12-20); Aspartate Amino Transferase 20 U/L (5-31); Bilirubin Total 0.6 mg/dL (0.0-1.0); Blood Urea Nitrogen 24 mg/dL (9-16); Calcium 9.8 mg/dL (8.4-10.2); Carbon Dioxide 24 mmol/L (22-29); Chloride 106 mmol/L (96-108); Cholesterol 127 mg/dL (<200); Estimated Glomerular Filt Rate > 60; Glucose Fasting 110 mg/dL (60-99); HDL Cholesterol 59 mg/dL (>40); LDL Cholesterol Calculated 58 mg/dL (<100); Potassium 4.9 mmol/L (3.3-5.1); Sodium 139 mmol/L (135-145); Total Protein 7.5 g/dL (6.5-8.0); Triglycerides 51 mg/dL (<150)
[2023-08-12 11:57] LABS: Creatinine Urine 89.61 mg/dL; Microalbum/Creatinine Ratio Ur 6.6 ug/mg cr (<30)
[2023-08-12 12:02] LABS: TSH reflex Free T4 0.72 uIU/mL (0.32-4.0)
== END 2023-08-12 07:13 | disposition home or self-care (01) ==
LOC: HO.HMGCLDS 07:12
PROVIDERS: PCP Internal Medicine; Visit Provider Internal Medicine
DX: E11.9 Type 2 diabetes mellitus without complications (principal); E78.5 Hyperlipidemia, unspecified; I10 Essential (primary) hypertension
CPT/HCPCS: 36415; 80053; 80061; 82043; 82570; 83036; 84443; 85025

== ENCOUNTER 2023-08-29 12:47 | Outpatient (AMB) | payer BC, SELFPAY ==
--- NOTE | 2023-08-29 12:48 | A.OFFPC_ITS ---
Vital Signs 08/29/23 12:49 Height 5 ft 4 in Weight 214 lb BMI 36.7 BP 118/72 Blood Pressure Location Lt brachial Position Sitting Pulse 86 Pulse Source Pulse Oximeter Pulse Oximetry (%) 97 Oxygen Delivery Method Room Air Intake Visit Reasons: PE Intake Note: Pt is here today for PE. Allergies lisinopril Adverse Reaction (Unknown, Verified 08/29/23 13:05) Cough Medication List - Last Reconciled 08/29/23 by Amanda Eli MD albuterol sulfate 90 mcg/actuation 2 puffs inhalation Q6H atorvastatin 40 mg PO BEDTIME blood sugar diagnostic (Contour Test Strips) test glucose once a day dulaglutide (Trulicity) 0.75 mg (0.5 mL) subcut QWEEK estradiol 0.01%(0.1mg/gram) (Estrace) 1 g vaginal 3XW Glyxambi 25-5 mg (empagliflozin-linagliptin) 1 tab PO DAILY NS lancets test blood sugar twice a day meloxicam 15 mg PO DAILY montelukast 10 mg PO BEDTIME olmesartan 20 mg PO DAILY Tobacco use date assessed: 08/29/23 Dental Screening Dental Screen Date: 08/29/23 Did you have a dental visit in the last 12 months?: Yes Did you have a dental problem in the last 6 months where you did not have access to dental care?: No Was dental information given to patient?: Patient has dentist HPI PE HPI Details Pt presents for PE. Pt was dxd with recurrent R breast ca and has f/u with [facility] to discuss treatment options. [facility] Medical History (Updated 08/29/23 @ 13:56 by Amanda Eli MD) Sacroiliac joint disease Trochanteric bursitis Asthma Atrophic vaginitis Shoulder pain, right Pulmonary nodules/lesions, multiple Mammogram normal Normal colonoscopy Palpitations Obesity Annual physical exam Chronic asthma Type 2 diabetes mellitus Hypertension Back pain Neck pain Surgical History Hx of hysterectomy Hx of colonoscopy No pertinent past surgical history Family History Father No problems noted. Mother Stroke Son No problems noted. Daughter No problems noted. Social History Housing: House Patient Tobacco Use Status: Never used Tobacco e-Cigarette/Vaping Use: Never Used Second Hand Smoke Exposure: No service: No Current occupational status: employed Current occupational exposures/hazards: No Cognitive needs: No Hearing needs: No Vision needs: No Questionnaire PHQ-9 Over the last 2 weeks, how often have you been bothered by any of the following problems? 1. Little interest or pleasure in doing things: not at all 2. Feeling down, depressed, or hopeless: not at all 3. Trouble falling or staying asleep, or sleeping too much: not at all 4. Feeling tired or having little energy: not at all 5. Poor appetite or overeating: not at all 6. Feeling bad about yourself - or that you are a failure or have let yourself or your family down: not at all 7. Trouble concentrating on things, such as reading the newspaper or watching television: not at all 8. Moving or speaking so slowly that other people could have noticed. Or the opposite - being so fidgety or restless that you have been moving around a lot more than usual: not at all 9. Thoughts that you would be better off or of hurting yourself in some way: not at all Total score: 0 Depression Screening Interpretation: Negative Depression Screening Done: Yes Source: Developed by Drs. Gildardo Tomlinson, Claudia Hernandes, González Mason and colleagues, with an educational robyn from [employer]. Thrive Questionnaire Date Thrive assessed: 08/29/23 I am a: Patient What is your living situation today?: I have a steady place to live Within the past 12 months, did the food you bought not last and you didn't have the money to get more?: Never true Within the past 12 months, did you worry whether your food would run out before you got money to buy more?: Never true Do you have trouble paying for medicines?: No Do you have trouble getting transportation to medical appointments?: No Do you have trouble paying your heating and electricity bill?: No Do you have trouble taking care of your child, family member or friend?: No Do you have trouble with day-to-day activities such as bathing, preparing meals, shopping, managing finances, etc.?: No Are you currently unemployed and looking for a job?: No Are you interested in more education?: No Please select the resources that you would like help with: None THRIVE Score: 0 AUDIT C Alcohol Use Questionnaire (AUDIT-C) 1. How often do you have a drink containing alcohol?: Never 3. How often do you have six or more drinks on one occasion?: Never Total Score: 0 WISAM-7 AMB Questionnaire WISAM-7 Date WISAM - 7 assessed: 08/29/23 Feeling nervous, anxious, or on edge: 0 = Not at all Not being able to stop or control worryin = Not at all Worrying too much about different things: 0 = Not at all Trouble relaxin = Not at all Being so restless that it is hard to sit still: 0 = Not at all Becoming easily annoyed or irritable: 0 = Not at all Feeling afraid as if something awful might happen: 0 = Not at all Total WISAM-7 score (0-4 normal; 5-9 mild; 10-14 moderate; 15-21 severe): 0 Source: Developed by Drs. Gildardo Tomlinson, Claudia Hernandes, González Mason and colleagues, with an educational robyn from [employer]. Review of Systems Const All systems reviewed & are unremarkable except as noted in HPI and below Reports no additional complaints Eyes Reports no additional complaints ENT Reports no additional complaints Card Reports no additional complaints Resp Reports no additional complaints GI Reports no additional complaints Reports no additional complaints Physical exam (Primary Care) Vital Signs: Last Vital Signs Pulse 86 08/29/23 12:49 BP 118/72 08/29/23 12:49 Pulse Ox 97 08/29/23 12:49 Oxygen Delivery Method Room Air 08/29/23 12:49 BMI result Body Mass Index 36.7 Tobacco/Smoking Status: Tobacco use Status Tobacco use date assessed 08/29/23 08/29/23 13:11 Patient Tobacco Use Status Never used Tobacco 08/29/23 13:11 e-Cigarette/Vaping Use Never Used 08/29/23 12:50 PHQ-9: PHQ-9 Score PHQ-9: Total score 0 08/29/23 13:11 Depression Screening Interpretation: Negative Thrive Assessment: Date of Thrive Assessment Date Thrive assessed 08/29/23 08/29/23 13:11 Const General: no acute distress HENMT Head: Yes normal to inspection Face and sinus: Yes normal facial exam Mouth: Normal oral and palatal mucosa present Eyes General: appearance normal, both eyes and all related structures Neck Neck: Yes no lymphadenopathy and Yes supple Resp Effort & Inspection: normal respiratory effort Auscultation: clear to auscultation bilaterally Cardio Rhythm: regular rhythm Heart sounds: S1 normal heart sound present and S2 normal heart sound present GI Inspection: Yes normal to inspection Percussion: Yes normal to percussion Auscultation: normal bowel sounds Assessment and Plan Assessment & Plan (1) Hypertension: Code(s): I10 - Essential (primary) hypertension Plan: Continue current medications (2) Type 2 diabetes mellitus: Code(s): E11.9 - Type 2 diabetes mellitus without complications Plan: A1c is 5.5, continue ADA diet regular exercise weight loss discussed with the patient. Continue current medications follow-up in 4 months with a fasting labs before (3) Normal colonoscopy: Comment: 01/2015 repeat 10 years (4) Hyperlipidemia: Comment: Cardiac cath for abnormal stress test, [facility], no significant stenosis 07/15 Code(s): E78.5 - Hyperlipidemia, unspecified Plan: Patient was advised to continue atorvastatin for primary prevention (5) Breast cancer: Comment: recurrent R breast f/u [facility] oncology 07/2023 Code(s): C50.919 - Malignant neoplasm of unspecified site of unspecified female breast Plan: f/u with oncology Orders: Orders Comprehensive [place]. Panel Fast 4 Months E11.9 - Type 2 diabetes mellitus without complications, E78.5 - Hyperlipidemia, unspecified, I10 - Essential (primary) hypertension Microalbumin, Random (w Creat) 4 Months E11.9 - Type 2 diabetes mellitus without complications, E78.5 - Hyperlipidemia, unspecified, I10 - Essential (primary) hypertension Hemoglobin A1c 4 Months E11.9 - Type 2 diabetes mellitus without complications, E78.5 - Hyperlipidemia, unspecified, I10 - Essential (primary) hypertension Lipid Panel 4 Months E11.9 - Type 2 diabetes mellitus without complications, E78.5 - Hyperlipidemia, unspecified, I10 - Essential (primary) hypertension Complete Blood Count Auto Diff 4 Months E11.9 - Type 2 diabetes mellitus without complications, E78.5 - Hyperlipidemia, unspecified, I10 - Essential (primary) hypertension Vitamin D 25-OH Total 4 Months E11.9 - Type 2 diabetes mellitus without complications, E78.5 - Hyperlipidemia, unspecified, I10 - Essential (primary) hypertension Coding Level of Care Code Est Pt Prev Care 40-64y(92870) Diagnoses Hypertension I10 Type 2 diabetes mellitus E11.9 Normal colonoscopy Hyperlipidemia E78.5 Breast cancer C50.919
[2023-08-29 12:49] VITALS: BP 118/72; PULSE 86; O2SAT 97; BMI 36.7
== END 2023-08-29 13:49 | disposition home or self-care (01) ==
PROVIDERS: PCP Internal Medicine; Visit Provider Internal Medicine
DX: Z00.00 Encounter for general adult medical examination without abnormal findings (principal); E11.9 Type 2 diabetes mellitus without complications; C50.919 Malignant neoplasm of unspecified site of unspecified female breast; I10 Essential (primary) hypertension; E78.5 Hyperlipidemia, unspecified
CPT/HCPCS: 99396

== ENCOUNTER 2023-12-22 09:41 | Outpatient (REF) | payer BC, SELFPAY ==
[2023-12-22 13:17] LABS: MANUAL DIFF FLAG NO
[2023-12-22 13:24] LABS: Basophils Percent Auto 0.5 % (0-2); Eosinophils Absolute Auto 0.1 X10*3/uL (0.0-0.4); Eosinophils Percent Auto 1.7 % (0-4); Hemoglobin 14.3 g/dl (12.0-16.0); Imm Gran Abs Auto 0.02 X10*3/uL (0.00-0.03); Imm Gran Pct Auto 0.3 % (0.0-0.4); Lymphocytes Absolute Auto 1.9 X10*3/uL (1.2-4.9); Lymphocytes Percent Auto 25.9 % (20-40); Mean Corpuscular HGB Conc 31.1 g/dl (31.0-35.0); Mean Corpuscular Hemoglobin 25.9 pg (27.0-33.0); Mean Corpuscular Volume 83.3 fL (80.0-98.0); Monocytes Absolute Auto 0.7 X10*3/uL (0.1-1.2); Monocytes Percent Auto 9.3 % (2-11); Neutrophils Absolute Auto 4.7 x10*3/uL (2.0-8.3); Neutrophils Percent Auto 62.3 % (45-73); Platelet Count 251 X10*3/uL (160-400); Red Blood Count 5.52 X10*6/uL (4.20-5.50); Red Cell Distribution Width 13.9 % (11.0-16.0); White Blood Count 7.5 X10*3/uL (4.8-10.8)
[2023-12-22 13:33] LABS: Estimated Average Glucose 114 mg/dL; Hemoglobin A1c % 5.6 % (<6.0)
[2023-12-22 13:46] LABS: Alanine Aminotransferase 17 U/L (0-31); Albumin Level 4.3 g/dL (3.5-5.0); Alkaline Phosphatase 76 U/L (39-117); Anion Gap 12 (12-20); Aspartate Amino Transferase 21 U/L (5-31); Bilirubin Total 0.5 mg/dL (0.0-1.0); Blood Urea Nitrogen 13 mg/dL (9-16); Calcium 9.8 mg/dL (8.4-10.2); Carbon Dioxide 28 mmol/L (22-29); Chloride 106 mmol/L (96-108); Cholesterol 114 mg/dL (<200); Estimated Glomerular Filt Rate > 60; Glucose Fasting 103 mg/dL (60-99); HDL Cholesterol 51 mg/dL (>40); LDL Cholesterol Calculated 50 mg/dL (<100); Potassium 4.8 mmol/L (3.3-5.1); Sodium 141 mmol/L (135-145); Total Protein 7.4 g/dL (6.5-8.0); Triglycerides 69 mg/dL (<150)
[2023-12-22 14:02] LABS: Vitamin D 25-OH Total 39.4 ng/mL (>30)
[2023-12-22 14:44] LABS: Creatinine Urine 105.38 mg/dL; Microalbumin Urine < 5.0 mg/L
== END 2023-12-22 09:42 | disposition home or self-care (01) ==
LOC: HO.HMGCLDS 09:41
PROVIDERS: PCP Internal Medicine; Visit Provider Internal Medicine
DX: E78.5 Hyperlipidemia, unspecified (principal); E11.9 Type 2 diabetes mellitus without complications; I10 Essential (primary) hypertension
CPT/HCPCS: 36415; 80053; 80061; 82043; 82306; 82570; 83036; 85025

== ENCOUNTER 2024-01-01 13:51 | Outpatient (AMB) | payer BC, SELFPAY ==
[2024-01-01 13:59] VITALS: BP 118/72; PULSE 86; O2SAT 99; BMI 36.4
--- NOTE | 2024-01-01 13:59 | A.OFFPC_ITS ---
Vital Signs 01/01/24 13:59 Height 5 ft 4 in Weight 212 lb BMI 36.4 BP 118/72 Blood Pressure Location Rt brachial Position Sitting Pulse 86 Pulse Source Pulse Oximeter Pulse Oximetry (%) 99 Oxygen Delivery Method Room Air Intake Visit Reasons: 4M F/U Intake Note: Pt is here today for 4 months follow up visit. Allergies lisinopril Adverse Reaction (Unknown, Verified 01/01/24 14:00) Cough Medication List - Last Reconciled 01/01/24 by Amanda Eli MD albuterol sulfate 90 mcg/actuation 2 puffs inhalation Q6H anastrozole 1 mg PO DAILY atorvastatin 40 mg PO BEDTIME blood sugar diagnostic (Contour Test Strips) test glucose once a day dulaglutide (Trulicity) 0.75 mg (0.5 mL) subcut QWEEK Glyxambi 25-5 mg (empagliflozin-linagliptin) 1 tab PO DAILY NS lancets test blood sugar twice a day montelukast 10 mg PO BEDTIME olmesartan 20 mg PO DAILY Tobacco use date assessed: 01/01/24 Dental Screening Dental Screen Date: 01/01/24 Did you have a dental visit in the last 12 months?: Yes Did you have a dental problem in the last 6 months where you did not have access to dental care?: No Was dental information given to patient?: Patient has dentist HPI 4M F/U HPI Details Patient presents for the follow-up on hypertension type 2 diabetes hyperlipidemia. Patient underwent left mastectomy for breast cancer and started anastrozole. She follows with [facility] Medical History (Updated 01/01/24 @ 15:34 by Amanda Eli MD) Sacroiliac joint disease Trochanteric bursitis Asthma Atrophic vaginitis Shoulder pain, right Pulmonary nodules/lesions, multiple Mammogram normal Normal colonoscopy Palpitations Obesity Annual physical exam Chronic asthma Type 2 diabetes mellitus Hypertension Back pain Neck pain Surgical History Hx of hysterectomy Hx of colonoscopy No pertinent past surgical history Family History Father No problems noted. Mother Stroke Son No problems noted. Daughter No problems noted. Social History Housing: House Patient Tobacco Use Status: Never used Tobacco e-Cigarette/Vaping Use: Never Used Second Hand Smoke Exposure: No service: No Current occupational status: employed Current occupational exposures/hazards: No Cognitive needs: No Hearing needs: No Vision needs: No Questionnaire Thrive Questionnaire Date Thrive assessed: 08/29/23 AUDIT C Alcohol Use Questionnaire (AUDIT-C) 1. How often do you have a drink containing alcohol?: Never 3. How often do you have six or more drinks on one occasion?: Never Total Score: 0 WISAM-7 AMB Questionnaire WISAM-7 Date WISAM - 7 assessed: 08/29/23 Source: Developed by Drs. Gildardo Tomlinson, Claudai Hernandes, González Mason and colleagues, with an educational robyn from [employer]. Review of Systems Const All systems reviewed & are unremarkable except as noted in HPI and below ENT Reports no additional complaints Card Reports no additional complaints Resp Reports no additional complaints GI Reports no additional complaints Reports no additional complaints Physical exam (Primary Care) Vital Signs: Last Vital Signs Pulse 86 01/01/24 13:59 BP 118/72 01/01/24 13:59 Pulse Ox 99 01/01/24 13:59 Oxygen Delivery Method Room Air 01/01/24 13:59 BMI result Body Mass Index 36.4 Tobacco/Smoking Status: Tobacco use Status Tobacco use date assessed 01/01/24 01/01/24 14:00 Patient Tobacco Use Status Never used Tobacco 01/01/24 14:00 e-Cigarette/Vaping Use Never Used 01/01/24 14:00 Thrive Assessment: Date of Thrive Assessment Date Thrive assessed 08/29/23 01/01/24 14:00 Const General: no acute distress HENMT Head: Yes normal to inspection Mouth: Normal oral and palatal mucosa present Throat: Yes posterior oropharynx normal Resp Effort & Inspection: normal respiratory effort Auscultation: clear to auscultation bilaterally Cardio Rhythm: regular rhythm Heart sounds: S1 normal heart sound present and S2 normal heart sound present GI Inspection: Yes normal to inspection Palpation (GI): Soft to palpation Percussion: Yes normal to percussion Auscultation: normal bowel sounds Assessment and Plan Assessment & Plan (1) Annual physical exam: Code(s): Z00.00 - Encounter for general adult medical examination without abnormal findings (2) Type 2 diabetes mellitus: Code(s): E11.9 - Type 2 diabetes mellitus without complications Plan: A1c is 5.6, continue ADA diet current medications follow-up in 6 months with a fasting labs before (3) Hypertension: Code(s): I10 - Essential (primary) hypertension Plan: Continue olmesartan (4) Hyperlipidemia: Comment: Cardiac cath for abnormal stress test, [facility], no significant stenosis 07/15 Code(s): E78.5 - Hyperlipidemia, unspecified Plan: Continue statin (5) Breast cancer: Comment: recurrent R breast f/u [facility] oncology 07/2023, status post mastectomy started on anastrozole Code(s): C50.919 - Malignant neoplasm of unspecified site of unspecified female breast Plan: Follow-up with [facility] Orders: Orders Comprehensive [place]. Panel Fast 6 Months E11.9 - Type 2 diabetes mellitus without complications, E78.5 - Hyperlipidemia, unspecified, I10 - Essential (primary) hypertension Lipid Panel 6 Months E11.9 - Type 2 diabetes mellitus without complications, E78.5 - Hyperlipidemia, unspecified, I10 - Essential (primary) hypertension Vitamin B12 and Folate Today E11.9 - Type 2 diabetes mellitus without complications, I10 - Essential (primary) hypertension, Z00.00 - Encounter for general adult medical examination without abnormal findings Hemoglobin A1c 6 Months E11.9 - Type 2 diabetes mellitus without complications, E78.5 - Hyperlipidemia, unspecified, I10 - Essential (primary) hypertension Microalbumin, Random (w Creat) 6 Months E11.9 - Type 2 diabetes mellitus without complications, E78.5 - Hyperlipidemia, unspecified, I10 - Essential (primary) hypertension Coding Level of Care Code Est Pt Level 4 (51874) Diagnoses Annual physical exam Z00.00 Type 2 diabetes mellitus E11.9 Hypertension I10 Hyperlipidemia E78.5 Breast cancer C50.919
== END 2024-01-01 15:35 | disposition home or self-care (01) ==
LOC: HO.HMGC 13:51
PROVIDERS: PCP Internal Medicine; Visit Provider Internal Medicine
DX: Z00.00 Encounter for general adult medical examination without abnormal findings (principal); E11.9 Type 2 diabetes mellitus without complications; I10 Essential (primary) hypertension; E78.5 Hyperlipidemia, unspecified; C50.919 Malignant neoplasm of unspecified site of unspecified female breast
CPT/HCPCS: 99214

== ENCOUNTER 2024-01-01 15:11 | Outpatient (REF) | payer BC, SELFPAY ==
[2024-01-01 17:15] LABS: Vitamin B12 690 pg/mL (200-900)
== END 2024-01-01 15:12 | disposition home or self-care (01) ==
LOC: HO.HMGCLDS 15:11
PROVIDERS: PCP Internal Medicine; Visit Provider Internal Medicine
DX: Z00.00 Encounter for general adult medical examination without abnormal findings (principal); E11.9 Type 2 diabetes mellitus without complications; I10 Essential (primary) hypertension
CPT/HCPCS: 36415; 82607; 82746

== ENCOUNTER 2024-01-18 08:13 | Outpatient (AMB) | payer BC, SELFPAY ==
[2024-01-18 08:20] VITALS: BP 110/66; PULSE 76; O2SAT 97; BMI 36.4
--- NOTE | 2024-01-18 08:20 | A.OFFPC_ITS ---
Vital Signs 01/18/24 08:20 Height 5 ft 4 in Weight 212 lb BMI 36.4 BP 110/66 Blood Pressure Location Rt brachial Position Sitting Pulse 76 Pulse Source Pulse Oximeter Pulse Oximetry (%) 97 Oxygen Delivery Method Room Air Intake Visit Reasons: Lower leg pain and burning Intake Note: Pt is here today for a sick visit. Pt c/o L lower leg pain and burning. Allergies lisinopril Adverse Reaction (Unknown, Verified 01/18/24 08:21) Cough Medication List - Last Reconciled 01/18/24 by Amanda Eli MD albuterol sulfate 90 mcg/actuation 2 puffs inhalation Q6H anastrozole 1 mg PO DAILY atorvastatin 40 mg PO BEDTIME blood sugar diagnostic (Contour Test Strips) test glucose once a day dulaglutide (Trulicity) 0.75 mg (0.5 mL) subcut QWEEK Glyxambi 25-5 mg (empagliflozin-linagliptin) 1 tab PO DAILY NS lancets test blood sugar twice a day miscellaneous medical supply support pantyhose with zipper, compression 10-20 mmHg montelukast 10 mg PO BEDTIME olmesartan 20 mg PO DAILY Tobacco use date assessed: 01/01/24 Dental Screening Dental Screen Date: 01/01/24 HPI Lower leg pain and burning HPI Details Patient complains of left lower extremity pain swelling worse at the end of the day for 1 week. She denies injury fever chills recent travel. [facility] Medical History Sacroiliac joint disease Trochanteric bursitis Asthma Atrophic vaginitis Shoulder pain, right Pulmonary nodules/lesions, multiple Mammogram normal Normal colonoscopy Palpitations Obesity Annual physical exam Chronic asthma Type 2 diabetes mellitus Hypertension Back pain Neck pain Surgical History Hx of hysterectomy Hx of colonoscopy No pertinent past surgical history Family History Father No problems noted. Mother Stroke Son No problems noted. Daughter No problems noted. Social History Housing: House Patient Tobacco Use Status: Never used Tobacco e-Cigarette/Vaping Use: Never Used Second Hand Smoke Exposure: No service: No Current occupational status: employed Current occupational exposures/hazards: No Cognitive needs: No Hearing needs: No Vision needs: No Questionnaire Thrive Questionnaire Date Thrive assessed: 08/29/23 WISAM-7 AMB Questionnaire WSIAM-7 Date WISAM - 7 assessed: 08/29/23 Source: Developed by Drs. Gildardo Tomlinson, Claudia Hernandes, González Mason and colleagues, with an educational robyn from [employer]. Review of Systems Const All systems reviewed & are unremarkable except as noted in HPI and below Eyes Reports no additional complaints ENT Reports no additional complaints Card Reports no additional complaints Resp Reports no additional complaints GI Reports no additional complaints Reports no additional complaints Physical exam (Primary Care) Vital Signs: Last Vital Signs Pulse 76 01/18/24 08:20 BP 110/66 01/18/24 08:20 Pulse Ox 97 01/18/24 08:20 Oxygen Delivery Method Room Air 01/18/24 08:20 BMI result Body Mass Index 36.4 Tobacco/Smoking Status: Tobacco use Status Tobacco use date assessed 01/01/24 01/18/24 08:24 Patient Tobacco Use Status Never used Tobacco 01/18/24 08:24 e-Cigarette/Vaping Use Never Used 01/18/24 08:24 Thrive Assessment: Date of Thrive Assessment Date Thrive assessed 08/29/23 01/18/24 08:24 Const General: no acute distress HENMT Head: Yes normal to inspection Throat: Yes posterior oropharynx normal Neck Neck: Yes supple Resp Effort & Inspection: normal respiratory effort Auscultation: clear to auscultation bilaterally Cardio Rhythm: regular rhythm Heart sounds: S1 normal heart sound present and S2 normal heart sound present Extrem Other: LLE chronic venous stasis and superficial varicose veins present, there is erythema warmth and calf tenderness present Assessment and Plan Assessment & Plan (1) Leg pain, left: Code(s): M79.605 - Pain in left leg Plan: Obtain ultrasound to rule out DVT (2) Varicose veins of bilateral lower extremities with pain: Code(s): I83.813 - Varicose veins of bilateral lower extremities with pain Plan: For phlebitis patient was advised to take ibuprofen 400 mg 3 times a day, elevate left lower extremity and wear compression pantyhose. Patient will be referred to vascular surgeon Orders: Orders US venous duplex LE LT Today M79.605 - Pain in left leg Referrals Vascular Surgery Referral I83.813 - Varicose veins of bilateral lower extremities with pain Medications: New miscellaneous medical supply support pantyhose with zipper, compression 10-20 mmHg 2 ea 1RF I83.813 - Varicose veins of bilateral lower extremities with pain Coding Level of Care Code Est Pt Level 3 (80318) Diagnoses Leg pain, left M79.605 Varicose veins of bilateral lower extremities with pain I83.813
== END 2024-01-18 09:33 | disposition home or self-care (01) ==
LOC: HO.HMGC 08:13
PROVIDERS: PCP Internal Medicine; Visit Provider Internal Medicine
DX: M79.605 Pain in left leg (principal); I83.813 Varicose veins of bilateral lower extremities with pain
CPT/HCPCS: 99213

== ENCOUNTER 2024-01-18 09:17 | Outpatient (REF) | payer BC, SELFPAY ==
--- NOTE | ~2024-01-18 | US_ITS ---
EXAMINATION: US TRIPLEX LOWER EXTREMITY, LEFT CLINICAL INFORMATION: Left flank pain COMPARISON: None available. TECHNIQUE: Color-flow triplex imaging with spectral analysis and compression Doppler were performed on the left lower extremity. FINDINGS: Respiratory variation, normal compression and augmented flow are noted throughout the left lower extremity. The visualized common femoral vein, superficial femoral vein, profunda femoral vein, popliteal vein and midcalf peroneal and posterior tibial venous segments show no evidence of deep venous thrombosis. There is no Reddy's cyst. Large serpiginous varicose veins seen extending from the distal thigh into the calf without evidence of thrombophlebitis US/US venous duplex LE IMPRESSION: 1. No evidence of deep venous thrombosis involving the left lower extremity. 2. Large varicose veins seen in the left lower extremity without evidence of thrombophlebitis. Electronically signed by: Bradley Boyle MD 01/18/2024 10:04 AM EDT
== END 2024-01-18 09:18 | disposition home or self-care (01) ==
LOC: HO.HMGCX 09:17
PROVIDERS: PCP Internal Medicine; Visit Provider Internal Medicine
DX: M79.605 Pain in left leg (principal)
CPT/HCPCS: 93971

== ENCOUNTER 2024-02-23 15:02 | Outpatient (AMB) | payer BC, SELFPAY ==
--- NOTE | 2024-02-23 15:04 | AM.OFFVISNUR ---
Intake Visit Reasons: Flu shot Allergies lisinopril Adverse Reaction (Unknown, Verified 01/18/24 08:21) Cough Office Procedures Flu Questionnaire Does the patient have a severe egg allergy?: No Does the patient have severe life threatening allergies?: No Does the patient have a fever or illness today?: No Has the patient ever had Guillain-Steuben Syndrome?: No Has the patient ever had any past reaction to a flu shot?: No Assessment & Plan Assessment & Plan Orders: Orders Influenza [id number] Immunization Today Z23 - Encounter for immunization Medications: New Fluarix Triv [id number] (PF) (flu vacc [id number] 6mos up(PF)) 0.5 mL IM ONCE 0.5 mL 0RF NS Z23 - Encounter for immunization
== END 2024-02-23 15:10 | disposition home or self-care (01) ==
LOC: HO.HMCC 15:02
PROVIDERS: PCP Internal Medicine; Visit Provider Internal Medicine
DX: Z23 Encounter for immunization (principal)

== ENCOUNTER → 2024-02-23 15:02 | Outpatient (BNVA) | payer BC, SELFPAY | PROVIDERS: PCP Internal Medicine; Visit Provider Internal Medicine | DX: Z23 Encounter for immunization (principal) | CPT/HCPCS: 90471; 90656 ==

== ENCOUNTER 2024-04-12 14:47 | Outpatient (REF) | payer BC, SELFPAY ==
[2024-04-12 16:27] LABS: C Reactive Protein 0.89 mg/dL (< or = 0.50)
[2024-04-12 16:47] LABS: Rheumatoid Factor < 13.0 IU/mL (<15.0)
[2024-04-16 08:44] LABS: Anti Nuclear Antibody Screen NEGATIVE (NEGATIVE)
[2024-04-17 07:03] LABS: Cyclic Citrullinated Peptide <16 UNITS
== END 2024-04-12 14:48 | disposition home or self-care (01) ==
LOC: HO.HMGCLDS 14:47
PROVIDERS: PCP Internal Medicine; Visit Provider Internal Medicine
DX: M25.50 Pain in unspecified joint (principal)
CPT/HCPCS: 36415; 86038; 86140; 86200; 86431

== ENCOUNTER 2024-06-13 13:48 | Outpatient (AMB) | payer BC, SELFPAY ==
[2024-06-13 13:50] VITALS: BP 120/70; PULSE 81; TEMP 36.8; O2SAT 97; BMI 36.9
--- NOTE | 2024-06-13 13:50 | A.OFFPC_ITS ---
Vital Signs 06/13/24 13:50 Height 5 ft 4 in Weight 215 lb BMI 36.9 BP 120/70 Blood Pressure Location Rt brachial Position Sitting Pulse 81 Pulse Source Pulse Oximeter Temp 98.3 F Temp Source Oral Pulse Oximetry (%) 97 Oxygen Delivery Method Room Air Intake Visit Reasons: R Ear pain Intake Note: Pt is here today for a sick visit. Pt c/o R ear pain for last 2 weeks. Allergies lisinopril Adverse Reaction (Unknown, Verified 06/13/24 14:01) Cough Medication List - Last Reconciled 06/13/24 by Amanda Eli MD albuterol sulfate 90 mcg/actuation 2 puffs inhalation Q6H anastrozole 1 mg PO DAILY atorvastatin 40 mg PO BEDTIME blood sugar diagnostic (Contour Next Test Strips) test blood sugar once a day dulaglutide (Trulicity) 0.75 mg (0.5 mL) subcut QWEEK Glyxambi 25-5 mg (empagliflozin-linagliptin) 1 tab PO DAILY NS lancets test blood sugar twice a day miscellaneous medical supply support pantyhose with zipper, compression 10-20 mmHg montelukast 10 mg PO BEDTIME olmesartan 20 mg PO DAILY Symbicort 80-4.5 mcg/actuation (budesonide-formoterol) 2 puffs inhalation BID NS Tobacco use date assessed: 06/13/24 Fall risk assessment: No Falls in past year Last assessed Fall Risk: 06/13/24 Dental Screening Dental Screen Date: 06/13/24 Did you have a dental visit in the last 12 months?: Yes Did you have a dental problem in the last 6 months where you did not have access to dental care?: No Was dental information given to patient?: Patient has dentist HPI R Ear pain HPI Details Pt c/o R ear pain for 2 weeks. She denies fever chills change in hearing ear discharge headaches. Patient complains of chronic right-sided neck pain worse when turning her head to the side on and off for a few months. Patient denies pain in the right upper extremity weakness or numbness in extremities. Type 2 diabetes and hypertension are controlled on current medications. [facility] Medical History Sacroiliac joint disease Trochanteric bursitis Asthma Atrophic vaginitis Shoulder pain, right Pulmonary nodules/lesions, multiple Mammogram normal Normal colonoscopy Palpitations Obesity Annual physical exam Chronic asthma Type 2 diabetes mellitus Hypertension Back pain Neck pain Surgical History Hx of hysterectomy Hx of colonoscopy No pertinent past surgical history Family History Father No problems noted. Mother Stroke Son No problems noted. Daughter No problems noted. Social History Housing: House Patient Tobacco Use Status: Never used Tobacco e-Cigarette/Vaping Use: Never Used Second Hand Smoke Exposure: No service: No Current occupational status: employed Current occupational exposures/hazards: No Cognitive needs: No Hearing needs: No Vision needs: No Questionnaire PHQ-9 Over the last 2 weeks, how often have you been bothered by any of the following problems? 1. Little interest or pleasure in doing things: not at all 2. Feeling down, depressed, or hopeless: not at all 3. Trouble falling or staying asleep, or sleeping too much: not at all 4. Feeling tired or having little energy: not at all 5. Poor appetite or overeating: not at all 6. Feeling bad about yourself - or that you are a failure or have let yourself or your family down: not at all 7. Trouble concentrating on things, such as reading the newspaper or watching television: not at all 8. Moving or speaking so slowly that other people could have noticed. Or the opposite - being so fidgety or restless that you have been moving around a lot more than usual: not at all 9. Thoughts that you would be better off or of hurting yourself in some way: not at all Total score: 0 Depression Screening Interpretation: Negative Depression Screening Done: Yes 39144 - PHQ-9 Billing: Yes Source: Developed by Drs. Gildardo Tomlinson, Claudia Hernandes, González Mason and colleagues, with an educational robyn from [employer]. Thrive Questionnaire Date Thrive assessed: 06/13/24 I am a: Patient What is your living situation today?: I have a steady place to live Within the past 12 months, did the food you bought not last and you didn't have the money to get more?: Never true Within the past 12 months, did you worry whether your food would run out before you got money to buy more?: Never true Do you have trouble paying for medicines?: No Do you have trouble getting transportation to medical appointments?: No Do you have trouble paying your heating and electricity bill?: No Do you have trouble taking care of your child, family member or friend?: No Do you have trouble with day-to-day activities such as bathing, preparing meals, shopping, managing finances, etc.?: No Are you currently unemployed and looking for a job?: No Are you interested in more education?: No Please select the resources that you would like help with: None THRIVE Score: 0 AUDIT C Alcohol Use Questionnaire (AUDIT-C) 1. How often do you have a drink containing alcohol?: Never 3. How often do you have six or more drinks on one occasion?: Never Total Score: 0 WISAM-7 AMB Questionnaire WISAM-7 Date WISAM - 7 assessed: 06/13/24 Feeling nervous, anxious, or on edge: 0 = Not at all Not being able to stop or control worryin = Not at all Worrying too much about different things: 0 = Not at all Trouble relaxin = Not at all Being so restless that it is hard to sit still: 0 = Not at all Becoming easily annoyed or irritable: 0 = Not at all Feeling afraid as if something awful might happen: 0 = Not at all Total WISAM-7 score (0-4 normal; 5-9 mild; 10-14 moderate; 15-21 severe): 0 Source: Developed by Drs. Gildardo Tomlinson, Claudia Hernandes, González Mason and colleagues, with an educational robyn from [employer]. WISAM-7 Assessment Billing WISAM-7 Assessment Tool: WISAM-7 Assessment 40666 Review of Systems Const All systems reviewed & are unremarkable except as noted in HPI and below ENT Reports no additional complaints Resp Reports no additional complaints GI Reports no additional complaints Reports no additional complaints Physical exam (Primary Care) Vital Signs: Last Vital Signs Temp 98.3 F 06/13/24 13:50 Pulse 81 06/13/24 13:50 BP 120/70 06/13/24 13:50 Pulse Ox 97 06/13/24 13:50 Oxygen Delivery Method Room Air 06/13/24 13:50 BMI result Body Mass Index 36.9 Tobacco/Smoking Status: Tobacco use Status Tobacco use date assessed 06/13/24 06/13/24 14:05 Patient Tobacco Use Status Never used Tobacco 06/13/24 14:05 e-Cigarette/Vaping Use Never Used 06/13/24 13:50 PHQ-9: PHQ-9 Score PHQ-9: Total score 0 06/13/24 14:05 Depression Screening Interpretation: Negative Thrive Assessment: Date of Thrive Assessment Date Thrive assessed 06/13/24 06/13/24 14:05 Const General: no acute distress HENMT Other: This reproducible tenderness over right TMJ joint Head: Yes normal to inspection Ears: hearing grossly normal bilaterally and TM's normal bilaterally General nose exam: Normal external nose present Face and sinus: Yes normal facial exam Mouth: Normal oral and palatal mucosa present Eyes General: appearance normal, both eyes and all related structures Neck Other: Decreased range of motion in C-spine, paraspinal tenderness in right middle and lower cervical region Neck: Yes no lymphadenopathy and Yes supple Resp Effort & Inspection: normal respiratory effort Auscultation: clear to auscultation bilaterally Cardio Rhythm: regular rhythm Heart sounds: S1 normal heart sound present and S2 normal heart sound present GI Inspection: Yes normal to inspection Palpation (GI): Soft to palpation Percussion: Yes normal to percussion Coding Level of Care Code Est Pt Level 4 (93254) Diagnoses Neck pain M54.2 Arthritis of right temporomandibular joint M26.641 Type 2 diabetes mellitus E11.9 Hypertension I10 Breast cancer C50.919 Additional Codes WISAM-7 Assessment Billing - WISAM-7 Assessment Tool: WISAM-7 Assessment 86205 ([id number]) PHQ-9 - 44188 - PHQ-9 Billing: Yes ([id number]) Assessment & Plan Assessment & Plan (1) Neck pain: Code(s): M54.2 - Cervicalgia Category: Medical Plan: Patient will schedule an appointment for physical therapy (2) Arthritis of right temporomandibular joint: Code(s): M26.641 - Arthritis of right temporomandibular joint Category: Medical Plan: Meloxicam 15 mg daily for 10 days is prescribed (3) Type 2 diabetes mellitus: Code(s): E11.9 - Type 2 diabetes mellitus without complications Category: Medical Plan: Continue current medications, ADA diet, return for a physical in August (4) Hypertension: Code(s): I10 - Essential (primary) hypertension Category: Medical Plan: cont meds (5) Breast cancer: Comment: recurrent R breast f/u [facility] oncology 07/2023, status post mastectomy started on anastrozole Code(s): C50.919 - Malignant neoplasm of unspecified site of unspecified female breast Category: Medical Plan: Continue anastrozole Orders: Orders PT Evaluation and Treatment Today M54.2 - Cervicalgia Medications: New meloxicam 15 mg PO DAILY 10 tabs 0RF Refilled dulaglutide (Trulicity) 0.75 mg (0.5 mL) subcut QWEEK 6 mL 4RF
--- OUTSIDE RECORDS SUMMARY | 2024-06-13 16:19 | XMS_ITS | Continuity of Care Document ---
Author Organization [facility] Address [address] [place] [id number]- Care Team Providers Care Reservations Clerk Name Role Phone Amanda Eli MD Primary Care Physician Encounter [facility] Date(s): 05/02/24 - 06/01/[address] [id number] Attending Physician: Surya Garner Admitting Physician: Surya Garner Referring Physician: Patsy ArReba Encounter Type: Triage Allergies, Adverse Reactions, Alerts Substance Criticality Severity Reaction Reaction Severity Status Other Environmental Allergy congestion down (feathers) Active Problem List Condition Confirmation Course Effective Dates Status H ealth Status Informant DDD (degenerative disc disease), lumbar Confirmed Active EIN (endometrial intraepithelial neoplasia) Confirmed Active Hemorrhoids Confirmed Active Lumbar radiculitis Confirmed Active Breast cancer, left breast Confirmed 2004 Active Right leg pain Confirmed Active Severe obesity (BMI 35.0-39.9) with comorbidity Confirmed Active Varicose veins of lower limb Confirmed Active Social History Social History Type Response Smoking Status Never (less than 100 in lifetime) entered on: 04/04/22 Sex Sex Representation Female (finding) Implantable Device List Procedure Provider Procedure Date Device Type Site Robotic XI Repair Hernia Ventral Lisa Frances MD 05/20/22 Unknown Abdomen Device Identifier Serial Number Lot or Batch Number Manufacturing Date Expiration Date Distinct Identification Code MRI Safety Implantable Status Assigning Authority Unknown [id number] Unknown 09/17/23 Unknown Unknown Active Unknown Patient Care team information Care Team Personnel Name: Amanda Eli MD Position: [facility] Physician - Primary Care Member Role: PCP Address: [address] [place] [address]- Telecom: Name: Vesta Zamora RN Position: [facility] RN Member Role: Primary Care Nurse Name: Jessica Tracy RN Position: [facility] RN Member Role: Primary Care Nurse Name: Kaylee Britton LPN Position: [facility] RN Member Role: Primary Care Nurse Care Team Related Persons Name: AMANDA CALHOUN Name: PAMELA SABILLON Name: BEVERLEY SABILLON Insurance Providers Guarantor name: [facility] Health Plan Information #: 1 Payer: [employer] Member Number: NA Policy Number: NA Group Number: NA
--- OUTSIDE RECORDS SUMMARY | 2024-06-13 16:19 | XMS_ITS | Continuity of Care Document ---
Author Organization [facility] Address [address] [place] [id number]- Care Team Providers Care Rn Gynecology Name Role Phone Amanda Eli MD Primary Care Physician [phone] [id number] Date(s): 05/16/24 - 05/23/24 [facility] [address] [place], [place] [address] Encounter Diagnosis Varicose veins of lower limb(Discharge Diagnosis) - 05/16/24 Attending Physician: Kimberley Phillips NP Admitting Physician: Kimberley Phillips NP Referring Physician: Amanda Eli MD Encounter Type: Office Visit Allergies, Adverse Reactions, Alerts Substance Criticality Severity Reaction Reaction Severity Status Other Environmental Allergy congestion down (feathers) Active Problem List Condition Confirmation Course Effective Dates Status H ealth Status Informant DDD (degenerative disc disease), lumbar Confirmed Active EIN (endometrial intraepithelial neoplasia) Confirmed Active Hemorrhoids Confirmed Active Lumbar radiculitis Confirmed Active Breast cancer, left breast Confirmed 2003 Active Right leg pain Confirmed Active Severe obesity (BMI 35.0-39.9) with comorbidity Confirmed Active Varicose veins of lower limb Confirmed Active Diagnosis Diagnosis Type Effective Dates Health Status Cl inical Service Informant Varicose veins of lower limb Discharge Diagnosis 05/16/24 Vital Signs Most recent to oldest [Reference Range]: 1 Height 161.2 cm (05/16/24 11:29 AM) Weight 98 kg (05/16/24 11:29 AM) Oxygen Saturation [94-100 %] 98 % (05/16/24 11:29 AM) Pulse Rate [55-90 bpm] 80 bpm (05/16/24 11:29 AM) Body Mass Index [18.5-24.99 kg/m2] 37.71 kg/m2 *>HHI* (05/16/24 11:29 AM) Blood Pressure [90-138/55-84 mm Hg] 130/ 82mm Hg (05/16/24 11:29 AM) Mode of Delivery (Oxygen) Room air (05/16/24 11:29 AM) Blood pressure sites Arm, right (05/16/24 11:29 AM) Social History Social History Type Response Smoking [...] MRI Safety Implantable Status Assigning Authority Unknown [id number] Unknown 09/17/23 Unknown Unknown Active Unknown Note * Alice Cohn: PERFORM Event Display: Patient Education/Instruction Authored Date: [id number] Ambulatory [place] [address] Name: DEENA SABILLON : 1960?? Visit: 05/16/2024 11:23?? Ambulatory Visit Instructions ?? Your Care Team Primary Care Provider Amanda Eli MD? This Visit Provider Kimberley Phillips NP Your Diagnosis Varicose veins of lower limb Vitals Signs Pulse Rate: 80 bpm Height: 161.2 cm Systolic Blood Pressure: 130 mm Hg Weight: 98 kg Diastolic Blood Pressure: 82 mm Hg Body Mass Index:??37.71 kg/m2??Critical Oxygen Saturation: 98 % Body surface area: 2.09 What to do next Scheduled Follow-Up Appointments Monday 3:30 PM EDT ?? Where: [facility] [place] [address], [address] [place] [address]- Status: Pending Monday 4:00 PM EDT ?? Where: [facility] Rad[facility] [place] [address], [address] [place] [address]- Status: Pending Medications The list below reflects the information in our records and provided by you today along with any changes made during this visit. Please continue your medications until treatment is completed or stopped by your provider. If this is different from the information you have or there are other questions,please contact the prescribing provider. What How Much When Why Instructions Unchanged Acetaminophen (acetaminophen 325 mg oral capsule) 2 capsule Oral Every 4 hours as needed for as needed for pain Unchanged Albuterol (ProAir HFA 90 mcg/ inh inhalation aerosol) 1 puff(s) Inhalation 4 times a day as needed for as needed for wheezing prn ?? Unchanged Anastrozole (anastrozole 1 mg oral tablet) 1 tab(s) Oral Daily Unchanged Atorvastatin (Lipitor 40 mg oral tablet) 1 tab(s) Oral Daily Duration: 90 Days Unchanged dulaglutide (Trulicity Pen 0.75 mg/ 0.5 mL subcutaneous solution) 0.5 Milliliter Subcutaneous Injection Every Monday Unchanged Durable Medical Equipment (Juzo Seamless Glove (20-30mmHg)) See instructions Lymphedema Breast CA Dx: Lymphedema. ?Use daily. On in a.m. off at bedtime ?? Unchanged Durable Medical Equipment (Juzo Soft Sleeve (20-30mmHg)) See instructions Lymphedema Breast CA Dx: Lymphedema. ?Use daily. On in a.m. off at bedtime ?? Unchanged empagliflozin-linagliptin (Glyxambi 25 mg-5 mg oral tablet) 1 tab(s) Oral Daily in the morning Unchanged Montelukast (Singulair) 10 Milligram Oral Daily Unchanged Olmesartan (Benicar 20 mg oral tablet) 1 tab(s) Oral Daily Medications and Immunizations Administered Medications Given During Visit No medications given during this visit.?? Allergies (NKA means No Known Allergies) Other Environmental Allergy??(congestion, down (feathers)) Common Emergency Awareness Tips IS IT A STROKE? Act FAST and Check for these signs: FACE Does the face look uneven? ARM Does one arm drift down? SPEECH Does their speech sound strange? TIME Call at any sign of stroke ?? Heart Attack Signs Chest discomfort: Most heart attacks involve discomfort in the center of the chest and lasts more than a few minutes, or goes away and comes back. It can feel like uncomfortable pressure, squeezing, fullness or pain. Discomfort in upper body: Symptoms can include pain or discomfort in one or both arms, back, neck, jaw or stomach. Shortness of breath: With or without discomfort. Other signs: Breaking out in a cold sweat, nausea, or lightheaded. Remember, MINUTES DO MATTER. If you experience any of these heart attack warning signs, call to get immediate medical attention! ?? Smoking can increase your chances of developing chronic health problems and can cause harmful effects to other family members in your house. If you smoke, you are strongly encouraged to quit. Please call [facility] [facility] at [phone] or 4-862-981[employer] ([phone]) or log in to [email or web address] for referrals to smoking cessation programs. ?? The National Suicide Prevention Hotline is available 12/12 if you or someone you know needs to find a reason to keep living. By calling 0-389-901-[facility] (4621) you'll be connected to a skilled, trained counselor at a crisis center in your area. [facility] [employer] Portal You can view and manage your care through the patient portal or by using a health care arely of your choosing. [employer] is a website that allows you to securely view your medical information including your hospital discharge summary, office visit summaries, medications and follow-up visits. You can also request appointments, renew medications, and request access to your medical information using a health care arely of your choosing, or just ask a question. You can enroll at [email or web address] or register during your next office visit. [facility], in keeping with [facility] guidance, no longer requires face masks for staff, patientsor visitors in most situations. Similiar to time spent indoors at other locations, there is the chance that you were exposed to repiratory viruses during your time with us (such as flu or COVID-19). If you develop symptoms concerning for a viral respiratory infection, please seek testing (and treatment if indicated) from your medical provider or home test kit. ?? Disclaimer: The information provided is of a general nature and is intended to be used in conjunction with the recommendations and advice of your health care practitioner. Every effort has been made to ensure that the information provided is accurate and complete at the time it is provided to you however, as your needs change, or, as new information becomes available, different or additional instructions may be required. ?? If you have questions, please consult with your primary care provider or pharmacist, as appropriate. This information is not intended to serve as substitution for assessment and evaluation by a qualified health care provider. If you do not have a primary care provider, you may find a [facility] provider by calling [facility] [employer] [facility] at [phone]. Patient Care team information Care Team Personnel Name: Amanda Eli MD Position: [facility] Physician - Primary Care Member Role: PCP Address: [address] Telecom: Name: Vesta Zamora RN Position: [facility] RN Member Role: Primary Care Nurse Name: Jessica Tracy RN Position: [facility] RN Member Role: Primary Care Nurse Name: Kaylee Britton LPN Position: [facility] RN Member Role: Primary Care Nurse Care Team Related Persons Name: AMANDA CALHOUN Name: PAMELA SABILLON Name: BEVERLEY SABILLON Insurance Providers Guarantor name: DEENA SABILLON Health Plan Information #: 1 Payer: [email or web address] Member Number: [id number] Policy Number: NA Group Number: [id number] Health Plan Information #: 2 Payer: [email or web address] Member Number: [id number] Policy Number: NA Group Number: [id number]
== END 2024-06-13 14:40 | disposition home or self-care (01) ==
PROVIDERS: PCP Internal Medicine; Visit Provider Internal Medicine
DX: M54.2 Cervicalgia (principal); M26.641 Arthritis of right temporomandibular joint; E11.9 Type 2 diabetes mellitus without complications; I10 Essential (primary) hypertension; C50.919 Malignant neoplasm of unspecified site of unspecified female breast

== ENCOUNTER → 2024-06-13 13:48 | Outpatient (BNVA) | payer BC, SELFPAY | PROVIDERS: PCP Internal Medicine; Visit Provider Internal Medicine | DX: M54.2 Cervicalgia (principal); M26.641 Arthritis of right temporomandibular joint; E11.9 Type 2 diabetes mellitus without complications; I10 Essential (primary) hypertension; C50.911 Malignant neoplasm of unspecified site of right female breast; Z79.811 Long term (current) use of aromatase inhibitors; Z90.11 Acquired absence of right breast and nipple | CPT/HCPCS: 96127 ==

== ENCOUNTER 2024-07-11 13:14 | Outpatient (AMB) | payer BC, SELFPAY ==
--- NOTE | 2024-07-11 13:38 | MHC.PC.OV ---
Vital Signs 07/11/24 13:39 Height 5 ft 4 in Weight 214 lb BMI 36.7 BP 120/80 Blood Pressure Location Rt brachial Position Sitting Respiration 15 Pulse 69 Pulse Source Pulse Oximeter Temp 97.5 F Temp Source Oral Pulse Oximetry (%) 100 Oxygen Delivery Method Room Air Intake Visit Reasons: Follow up Allergies lisinopril Adverse Reaction (Unknown, Verified 07/11/24 13:40) Cough Medication List - Last Reconciled 07/11/24 by Amanda Eli MD albuterol sulfate 90 mcg/actuation 2 puffs inhalation Q6H amoxicillin-pot clavulanate 875-125 mg 1 tab PO BID anastrozole 1 mg PO DAILY atorvastatin 40 mg PO BEDTIME blood sugar diagnostic (Contour Next Test Strips) test blood sugar once a day dulaglutide (Trulicity) 0.75 mg (0.5 mL) subcut QWEEK Glyxambi 25-5 mg (empagliflozin-linagliptin) 1 tab PO DAILY NS lancets test blood sugar twice a day meloxicam 15 mg PO DAILY miscellaneous medical supply support pantyhose with zipper, compression 10-20 mmHg montelukast 10 mg PO BEDTIME olmesartan 20 mg PO DAILY Symbicort 80-4.5 mcg/actuation (budesonide-formoterol) 2 puffs inhalation BID NS Tobacco use date assessed: 07/11/24 Dental Screening Dental Screen Date: 07/11/24 Did you have a dental visit in the last 12 months?: Yes Did you have a dental problem in the last 6 months where you did not have access to dental care?: No Was dental information given to patient?: Patient has dentist HPI Follow up HPI Details Pt complains of nasal congestion postnasal drip right-sided facial pain fever up to 101 for 2 weeks. Patient also reports chronic nausea abdominal fullness worse since start taking Trulicity injections. She denies vomiting diarrhea dysuria. Patient went to the [facility] ER last night and had normal CT of the abdomen and pelvis, urinalysis and basic blood work,. [facility] Medical History Sacroiliac joint disease Trochanteric bursitis Asthma Atrophic vaginitis Shoulder pain, right Pulmonary nodules/lesions, multiple Mammogram normal Normal colonoscopy Palpitations Obesity Annual physical exam Chronic asthma Type 2 diabetes mellitus Hypertension Back pain Neck pain Surgical History Hx of hysterectomy Hx of colonoscopy No pertinent past surgical history Family History Father No problems noted. Mother Stroke Son No problems noted. Daughter No problems noted. Social History Housing: House Patient Tobacco Use Status: Never used Tobacco e-Cigarette/Vaping Use: Never Used Second Hand Smoke Exposure: No service: No Current occupational status: employed Current occupational exposures/hazards: No Cognitive needs: No Hearing needs: No Vision needs: No Questionnaire Thrive Questionnaire Date Thrive assessed: 06/13/24 WISAM-7 AMB Questionnaire WISAM-7 Date WISAM - 7 assessed: 06/13/24 Source: Developed by Drs. Gildardo Tomlinson, Claudia Hernandes, González Mason and colleagues, with an educational robyn from [employer]. Review of Systems Const All systems reviewed & are unremarkable except as noted in HPI and below Eyes Reports no additional complaints ENT Reports no additional complaints Card Reports no additional complaints Resp Reports no additional complaints GI Reports no additional complaints Reports no additional complaints Physical exam (Primary Care) Vital Signs: Last Vital Signs Temp 97.5 F 07/11/24 13:39 Pulse 69 07/11/24 13:39 Resp 15 07/11/24 13:39 BP 120/80 07/11/24 13:39 Pulse Ox 100 07/11/24 13:39 Oxygen Delivery Method Room Air 07/11/24 13:39 BMI result Body Mass Index 36.7 Tobacco/Smoking Status: Tobacco use Status Tobacco use date assessed 07/11/24 07/11/24 13:41 Patient Tobacco Use Status Never used Tobacco 07/11/24 13:40 e-Cigarette/Vaping Use Never Used 07/11/24 13:40 Thrive Assessment: Date of Thrive Assessment Date Thrive assessed 06/13/24 07/11/24 13:40 HENMT Head: Yes normal to inspection Ears: TM's normal bilaterally General nose exam: Abnormal mucous membranes and turbinates present erythematous Face and sinus: Yes normal facial exam and Yes sinus tenderness Throat: Yes postnasal drainage Eyes General: appearance normal, both eyes and all related structures Neck Neck: Yes no lymphadenopathy and Yes supple Resp Effort & Inspection: normal respiratory effort Auscultation: clear to auscultation bilaterally Cardio Rhythm: regular rhythm Heart sounds: S1 normal heart sound present and S2 normal heart sound present GI Inspection: Yes normal to inspection Palpation (GI): Soft to palpation Percussion: Yes normal to percussion Auscultation: normal bowel sounds Coding Level of Care Code Est Pt Level 3 (81170) Diagnoses Sinusitis J32.9 Type 2 diabetes mellitus E11.9 Assessment & Plan Assessment & Plan (1) Sinusitis: Code(s): J32.9 - Chronic sinusitis, unspecified Category: Medical Plan: Augmentin 875 for 10 days is prescribed and supportive care including using Flonase nasal spray discussed with the patient (2) Type 2 diabetes mellitus: Code(s): E11.9 - Type 2 diabetes mellitus without complications Category: Medical Plan: Continue current medications. Patient will stop Trulicity for few months because of nausea and abdominal bloating Medications: New amoxicillin-pot clavulanate 875-125 mg 1 tab PO BID 20 tabs 0RF
[2024-07-11 13:39] VITALS: BP 120/80; PULSE 69; RESP 15; TEMP 36.4; O2SAT 100; BMI 36.7
--- OUTSIDE RECORDS SUMMARY | 2024-07-11 14:08 | XMS_ITS ---
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 Name Role Phone Amanda Eli MD Primary Care Provider Sumaya Carvajal Unavailable [phone] Allergies No Known Allergies REASON FOR VISIT BREAST BX RESULTS Medications Medication SIG (Take, Route, Frequency, Duration) Notes Start Date End Date Status Terazol 3 0.8 % 1 application at bed time Vaginal EVERY NIGHT X 3 for 3 day(s) 08/11/2021 Not-Taking Ativan 0.5 MG 1 tablet as needed Orally every 6 hrs prn for 30 days 08/04/2023 Active Olmesartan Medoxomil 20 MG Oral for 30 Active Glyxambi 25-5 MG Oral for 30 A ctive Singulair 10 MG 1 tablet in the even ing Orally Once a day Active Metoprolol Succinate ER 25 MG Oral for 30 Active miSOPROStol 200 MCG 2 Orally night befor e procedure for 1 days 08/11/2021 Active Terazol 3 0.8 % 1 application at bed time Vaginal EVERY NIGHT X 3 for 3 day(s) 07/27/2022 Active Problems Problem Type SNOMED Code ICD Code Onset Dates Problem Status W/U Status Risk Notes Problem Malignant neoplasm of female breast (416720482) Malignant neoplasm of unspecified site of left female breast (C50.912) Active confirmed Problem Anxiety disorder (369922411) Anxiety disorder, unspecified (F41.9) Active confirmed Problem Personal history of primary malignant neoplasm of breast (296777312) Personal history of malignant neoplasm of breast (Z85.3) Active confirmed Vital Signs Temperature 96.9 degrees Fahrenheit 08/04/19 24 Blood pressure systolic 134 mm Hg 08/04/19 24 Blood pressure diastolic 78 mm Hg 024 Height 63.5 in 08/04/2023 Weight 240 lbs 08/04/2023 BMI 41.84 kg/m2 08/04/2023 Encounters Encounter Location Date Provider Diagnosis Total [address] [place] [address] 08/04/2023 Sumaya Patton Malignant neoplasm of unspecified site of left female breast C50.912 ; Anxiety disorder, unspecified F41.9 and Personal history of malignant neoplasm of breast Z85.3 Assessments Encounter Date Diagnosis (ICD Code) Assessment Notes Treatment Notes Treatment Clinical Notes Section Notes 08/04/2023 Malignant neoplasm of unspecified site of left female breast (ICD-10 - C50.912) DISCUSSED PATHOLOGY REPORT FROM BREAST BIOPSY SHOWING INVASIVE DUCTAL CA, GRADE 1, ESTROGEN AND PROGESTERONE RECEPTOR POSITIVE. DISCUSSED IMPLICATIONS DIAGNOSIS. PAT HAS BEEN REFERRED TO [facility] AND HAS AN APPT TO SEE DR FLAHERTY ON 08/08/23 AT 8 AM, [address] [facility]. QUESTIONS WERE ANSWERED. 08/04/2023 Anxiety disorder, unspecified (ICD-10 - F41.9) PAT IS UNDERSTANDABLY ANXIOUS DUE TO DX. RX FOR ATIVAN AND DETAILED INSTRUCTIONS WERE GIVEN. SHE HAS NO CONTRAINDICATIONS AND UNDERSTANDS THAT THIS IS HABIT FORMING. 08/04/2023 Personal history of malignant neoplasm of breast (ICD-10 - Z85.3) DISCUSSED PREVIOUS HX OF BREAST CA ALMOST 20 YEARS AGO, ON THE SAME BREAST. WILL INFORM DR FLAHERTY. PAT MAY BE OFFERED MASTECTOMY SEEING THIS IS THE SECOND BREAST CA NOTED ON THE SAME BREAST. Plan Of Treatment Medication Medication Name Sig Start Date Stop Date Notes Ativan 0.5 MG 1 tablet as needed O rally every 6 hrs prn for 30 days 08/04/2023 Treatment Notes Assessment Notes Malignant neoplasm of unspec ified site of left female breast DISCUSSED PATHOLOGY REPORT FROM BREAST BIOPSY SHOWING INVASIVE DUCTAL CA, GRADE 1, ESTROGEN AND PROGESTERONE RECEPTOR POSITIVE. DISCUSSED IMPLICATIONS DIAGNOSIS. PAT HAS BEEN REFERRED TO [facility] AND HAS AN APPT TO SEE DR FLAHERTY ON 08/08/23 AT 8 AM, [address] [facility]. QUESTIONS WERE ANSWERED. Anxiety disorder, unspecified PAT IS UNDERSTANDABLY ANXIOUS DUE TO DX. RX FOR ATIVAN AND DETAILED INSTRUCTIONS WERE GIVEN. SHE HAS NO CONTRAINDICATIONS AND UNDERSTANDS THAT THIS IS HABIT FORMING. Personal history of malignan t neoplasm of breast DISCUSSED PREVIOUS HX OF BREAST CA ALMOST 20 YEARS AGO, ON THE SAME BREAST. WILL INFORM DR FLAHERTY. PAT MAY BE OFFERED MASTECTOMY SEEING THIS IS THE SECOND BREAST CA NOTED ON THE SAME BREAST. Next Appt Details Follow Up: prn, Reason: Progress Notes * JOSSELIN SABILLONADOB:1960 ( 63 yo F)Acc No.[id number]:08/04/2023 PROGRESS NOTES Patient:?DEENA SABILLON Appointment Provider:?Sumaya bates M.D. :1960???Age:63 Y???Sex:Female D ate:08/04/2023 Address:[address] [place], [place] [id number] Pcp:Amanda Eli MD Subjective: * Chief Complaints: * ???BREAST BX RESULTS * HPI: ???New/Follow-up Patient Consult:? PAT HAD LEFT BREAST BIOPSY DONE FOR ABNORMAL MAMMOGRAM THIS MONTH AND IT SHOWED INVASIVE DUCTAL CA, GRADE 1, ESTROGEN AND PROGESTERONE RECEPTOR POSITIVE. ?SHE HAD UNDERGONE LEFT LUMPECTOMY IN 2004 FOR BREAST CA FOLLOWED BY RADIATION THERAPY AT [facility]. SHE HAD BEEN CANCER FREE UNTIL RECENTLY. * ROS:?general:?no?chest pain.?no?palpitations.?no?headache.?no?cough.?no?shortness of breath.?no?fever.?no?unexplained weight loss.?no?nausea/vomiting.?no?change in bowel movements.?no blood in stool.?no?genitourinary complaints.?no?skin complaints.? * Medical History:? 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 Control:?None.?Colonoscopy?2011? 2006.?Bone Density:?yes.? * OB History:?Total pregnancies?3.?Total living children?2.?NVD?2.? * Medications:?TakingSingulair 10 MG Tablet 1 tablet in the evening Orally Once a dayOlmesartan Medoxomil 20 MG Tablet Oral Glyxambi 25-5 MG Tablet Oral Metoprolol Succinate ER 25 MG Tablet Extended Release 24 Hour Oral miSOPROStol 200 MCG Tablet 2 Orally night before procedureTerazol 3 0.8 % Cream 1 application at bedtime Vaginal EVERY NIGHT X 3Taking Singulair 10 MG Tablet 1 tablet in the evening Orally Once a dayTaking Olmesartan Medoxomil 20 MG Tablet Oral Taking Glyxambi 25-5 MG Tablet Oral Taking Metoprolol Succinate ER 25 MG Tablet Extended Release 24 Hour Oral Taking miSOPROStol 200 MCG Tablet 2 Orally night before procedureTaking Terazol 3 0.8 % Cream 1 application at bedtime Vaginal EVERY NIGHT X 3Not-TakingTerazol 3 0.8 % Cream 1 application at bedtime Vaginal EVERY NIGHT X 3Medication List reviewed and reconciled with the patientNot-Taking Terazol 3 0.8 % Cream 1 application at bedtime Vaginal EVERY NIGHT X 3Medication List reviewed and reconciled with the patient * Allergies:?N.K.D.A.no[Allerg ies Verified] Objective: * Vitals:?Ht: 63.5 in, Wt:240 lbs, BMI:41.84 Index, BP:134/78 mm Hg, Temp:96.9 F. Assessment: * Assessment: 1.?Malignant neoplasm of uns pecified site of left female breast - C50.912 (Primary)?2.?Anxiety disorder, unspecified - F41.9?3.?Personal history of malignant neoplasm of breast - Z85.3? Plan: * Treatment: 2.?Anxiety disorder, unspeci fied? Start Ativan Tablet, 0.5 MG, 1 tablet as needed, Orally, every 6 hrs prn, 30 days, 20 Tablet, Refills 1.?? Notes: PAT IS UNDERSTANDABLY ANXIOUS DUE TO DX. RX FOR ATIVAN AND DETAILED INSTRUCTIONS WERE GIVEN. SHE HAS NO CONTRAINDICATIONS AND UNDERSTANDS THAT THIS IS HABIT FORMING.?? 3.?Personal history of malig nant neoplasm of breast? Notes: DISCUSSED PREVIOUS HX OF BREAST CA ALMOST 20 YEARS AGO, ON THE SAME BREAST. WILL INFORM DR FLAHERTY. PAT MAY BE OFFERED MASTECTOMY SEEING THIS IS THE SECOND BREAST CA NOTED ON THE SAME BREAST.?? * Procedure Codes:? * Follow Up:?prn * Images: Billing Information: * Visit Code:? * Procedure Codes:? * Sign off status: Completed true * Appointment Provider:?Sumaya Patton M.D. Date:?08/04/2023 Generated for Abad feliciano/Rhonda/Kamsmitting on:?07/11/2024 02:08 PM EST History and Physical Notes * HPI (History of Present Illness) Category Sub-Category Detail Notes Category Not es New/Follow-up Patient Consult PAT HAD LEFT BREAST BIOPSY DONE FOR ABNORMAL MAMMOGRAM THIS MONTH AND IT SHOWED INVASIVE DUCTAL CA, GRADE 1, ESTROGEN AND PROGESTERONE RECEPTOR POSITIVE. SHE HAD UNDERGONE LEFT LUMPECTOMY IN 2004 FOR BREAST CA FOLLOWED BY RADIATION THERAPY AT [facility]. SHE HAD BEEN CANCER FREE UNTIL RECENTLY.
--- OUTSIDE RECORDS SUMMARY | 2024-07-11 14:08 | XMS_ITS | Patient Health Record ---
Author Organization [facility] Address [address] [address] Care Team Providers Care Cargo Agent Name Role Phone Amanda Eli MD Primary Care Provider Sumaya Carvajal Unavailable [phone] Allergies No Known Allergies Reason For Referral No Information Medications Medication SIG (Take, Route, Frequency, Duration) [...] X 3 for 3 day(s) 07/27/2022 Active Social History Tobacco Use: Social History Observation Description Date Details (start date - stop date) Never Smoker NA - NA Tobacco Use/Smoking Question Answer Notes Are you a nonsmoker Alcohol Screen (Audit-C) Question Answer Notes Did you have a drink contain ing alcohol in the past year? Yes How often did you have a dri nk containing alcohol in the past year? Monthly or less (1 point) How many drinks did you have on a typical day when you were drinking in the past year? 1 or 2 drinks (0 point) Points 1 Interpretation Negative Problems Problem Type SNOMED Code ICD Code Onset Dates Problem Status W/U Status Risk Notes Problem Postmenopausal bleeding (65290714) Postmenopausal bleeding (N95.0) Active confirmed Problem Malignant neoplasm of female breast (640137003) Malignant neoplasm of unspecified site of left female breast (C50.912) Active confirmed Problem Morbid obesity (disorder) (859076221) Morbid (severe) obesity due to excess calories (E66.01) Active confirmed Problem Anxiety disorder (765822178) Anxiety disorder, unspecified (F41.9) Active confirmed Problem Personal history of primary malignant neoplasm of breast (737333519) Personal history of malignant neoplasm of breast (Z85.3) Active confirmed Problem Malignant neoplasm of female breast (344540879) Malignant neoplasm of other specified sites of female breast (174.8) Active confirmed Diag Problem Leiomyoma of uterus (38296538) Leiomyoma of uterus, unspecified (218.9) Active confirmed Major Problem Type II diabetes mellitus without complication (341991287) Diabetes mellitus without mention of complication, type II or unspecified type, not stated as uncontrolled (250.00) Active confirmed Major Problem Obesity (790666560) Obesity, unspecified (278.00) Active confirmed Diag Problem Benign essential hypertension (4284910) Essential hypertension, benign (401.1) Active confirmed Major Problem Breast lump (29570394) Lump or mass in breast (611.72) Active confirmed Diag Problem Menopausal symptom (75327914) Symptomatic menopausal or female climacteric states (627.2) Active confirmed Diag Problem Gynecological examination normal (602024665718403) Routine gynecological examination (V72.31) Active confirmed Major Problem Screening for malignant neoplasm of colon (769700690) Special screening for malignant neoplasms, colon (V76.51) Active confirmed Major Vital Signs Temperature 96.9 degrees Fahrenheit 08/04/2023 Blood pressure diastolic 78 mm Hg 08/04/2023 Height 63.5 in 08/04/2023 Blood pressure systolic 134 mm Hg 08/04/2023 Weight 240 lbs 08/04/2023 BMI 41.84 kg/m2 08/04/2023 Encounters Encounter Location Date Provider Diagnosis [facility] [address] [place] [address] 08/04/2023 Sumaya Patton Malignant neoplasm of unspecified site of left female breast C50.912 ; Anxiety disorder, unspecified F41.9 and Personal history of malignant neoplasm of breast Z85.3 [facility] [address] [facility] [address] [place] [address] 07/19/2023 Sumaya Patton Assessments Encounter Date Diagnosis (ICD Code) Assessment Notes Treatment Notes Treatment Clinical Notes Section Notes 08/04/2023 Malignant neoplasm of unspecified site of left female breast (ICD-10 - C50.912) DISCUSSED PATHOLOGY REPORT FROM BREAST BIOPSY SHOWING INVASIVE DUCTAL CA, GRADE 1, ESTROGEN AND PROGESTERONE RECEPTOR POSITIVE. DISCUSSED IMPLICATIONS DIAGNOSIS. PAT HAS BEEN REFERRED TO [facility] AND HAS AN APPT TO SEE DR FLAHERTY ON 08/08/23 AT 8 AM, [address] [facility] [facility]. QUESTIONS WERE ANSWERED. 08/04/2023 Anxiety disorder, [...] ON THE SAME BREAST. Plan Of Treatment Pending Test Test Name Order Date Sonohysterogram 11/19/2014 MAMMOGRAM, SCREENING 11/19/2014 MAMMOGRAM, SCREENING 06/18/2020 MAMMOGRAM, SCREENING 08/11/2021 Urinalysis 02/20/2018 Urinalysis 06/05/2019 ENDOMETRIAL BX 12/15/2014 ENDOMETRIAL BX 11/19/2014 THIN PREP,HPV,VILMA IF HPV+ (>29YR)(SCRN) 02/07/2017 MM Digital Mammo Screening 02/20/2018 MM Digital Mammo Screening 06/18/2020 MM Digital Mammo Screening 08/11/2021 Insurance Providers Payer Name Payer Address Payer Phone Subscriber Number Group Number Insured Name Patient Relationship to Insured Coverage Start Date Coverage End Date [employer] [address] [place] [address] [phone] [id number] DEENA SABILLON Self - patient is the insured Medical (General) History Medical History History ICD Code Unspecified lump in the left breast, uns pecified quadrant N63.20 Malignant neoplasm of overlapping sites of left female breast C50.812 Menopausal and female climacteric states N95.1 Other obesity E66.8 Type 2 diabetes mellitus without complic ations E11.9 Essential (primary) hypertension I10 Leiomyoma of uterus, unspecified D25.9 Postmenopausal bleeding N95.0 Surgical History Surgery Date(Month/Year) Left Breast Lumpectomy with Radiation 08 10 Cholecystectomy 2006 Hysteroscopy, Fractional D&C, Polypectom y 2009 Bilateral Carpal Tunnel Surgery Colonoscopy Hospitalization History Reason Date(Month/Year) 2 Vaginal Deliveries See Surgical Hx
--- OUTSIDE RECORDS SUMMARY | 2024-07-11 14:08 | XMS_ITS ---
Author Organization [facility] Address [address] [facility] [address] [place] [address] Care Team Providers Care Back Shoe Cutter Name Role Phone Amanda Eli MD Primary Care Provider Sumaya Carvajal Unavailable [phone] REASON FOR VISIT BREAST BX SCHEDULED Encounters Encounter Location Date Provider Diagnosis [facility] [address] [facility] [address] [place] [address] 07/19/2023 Sumaya Patton Plan Of Treatment No Information Progress Notes * JOSSELIN SABILLONADOB:1960 ( 63 yo F)Acc No.[id number]:07/19/2023 Patient:?DEENA SABILLON :1960???Age:63 Y???Sex:Female Address:[address] [place] [address], , [place], [address] * true * Date:? Generated for Rodrigoi jodie/Rhonda/eTransmitting on:?07/11/2024 02:08 PM EST
== END 2024-07-11 14:11 | disposition home or self-care (01) ==
PROVIDERS: PCP Internal Medicine; Visit Provider Internal Medicine
DX: J32.9 Chronic sinusitis, unspecified (principal); E11.9 Type 2 diabetes mellitus without complications

== ENCOUNTER → 2024-07-11 13:14 | Outpatient (BNVA) | payer BC, SELFPAY | PROVIDERS: PCP Internal Medicine; Visit Provider Internal Medicine ==

== ENCOUNTER 2024-09-06 08:03 | Outpatient (REF) | payer BC, SELFPAY ==
--- OUTSIDE RECORDS SUMMARY | 2024-09-06 08:10 | XMS_ITS | Continuity of Care Document ---
Author Organization [facility] Address [address] [place] [address]- Care Team Providers Care Anode Worker Name Role Phone Amanda Eli MD Primary Care Physician [phone] Encounter [facility] NBR [id number] Date(s): 08/02/24 - 09/01/24 [facility] [address] [place] [address] Encounter Type: Triage Allergies, Adverse Reactions, Alerts No Known Medication Allergies Substance Criticality Severity Reaction Reaction Severity Status [...] Type Site Robotic XI Repair Hernia Ventral Yvrose MARTINEZ, Lisa Yañez 05/20/22 Unknown Abdomen Device Identifier Serial Number Lot or Batch Number Manufacturing Date Expiration Date Distinct Identification Code MRI Safety Implantable Status Assigning Authority Unknown [id number] Unknown 09/17/23 Unknown Unknown Active Unknown Patient Care team information Care Team Personnel Name: Amanda Eli MD Position: [facility] Physician - Primary Care Member Role: PCP Address: [address] Telecom: Name: Mirta Arriaga RN Position: [facility] Onco RN Member Role: Primary Care Nurse Name: Vesta Zamora RN Position: [facility] RN Member Role: Primary Care Nurse Name: Alfreda Aggarwal RN Position: [facility] Onco RN Member Role: Primary Care Nurse Name: Jessica Tracy RN Position: S RN Member Role: Primary Care Nurse Name: Kaylee Britton LPN Position: S RN Member Role: Primary Care Nurse Care Team Related Persons Name: AMANDA CALHOUN Name: PAMELA SABILLON Name: BEVERLEY SABILLON Insurance Providers Guarantor name: [facility] Health Plan Information #: 1 Payer: [employer] Member Number: NA Policy Number: NA Group Number: NA
--- OUTSIDE RECORDS SUMMARY | 2024-09-06 08:10 | XMS_ITS | Patient Health Record ---
Author Organization [facility] Address [address] [address] Care Team Providers Care Reptile Keeper Name Role Phone Amanda Eli MD Primary Care Provider Sumaya Carvajal Unavailable [phone] Allergies No Known Allergies Reason For Referral [...] W/U Status Risk Notes Problem Postmenopausal bleeding (66998515) Postmenopausal bleeding (N95.0) Active confirmed Problem Malignant neoplasm of female breast (215812231) Malignant neoplasm of unspecified site of left female breast (C50.912) Active confirmed Problem Morbid obesity (disorder) (353164145) Morbid (severe) obesity due to excess calories (E66.01) Active confirmed Problem Anxiety disorder (893345301) Anxiety disorder, unspecified (F41.9) Active confirmed Problem Personal history of primary malignant neoplasm of breast (315675466) Personal history of malignant neoplasm of breast (Z85.3) Active confirmed Problem Malignant neoplasm of female breast (481345523) Malignant neoplasm of other specified sites of female breast (174.8) Active confirmed Diag Problem Leiomyoma of uterus (70274261) Leiomyoma of uterus, unspecified (218.9) Active confirmed Major Problem Type II diabetes mellitus without complication (236029346) Diabetes mellitus without mention of complication, type II or unspecified type, not stated as uncontrolled (250.00) Active confirmed Major Problem Obesity (565588379) Obesity, unspecified (278.00) Active confirmed Diag Problem Benign essential hypertension (0350906) Essential hypertension, benign (401.1) Active confirmed Major Problem Breast lump (00126789) Lump or mass in breast (611.72) Active confirmed Diag Problem Menopausal symptom (95956045) Symptomatic menopausal or female climacteric states (627.2) Active confirmed Diag Problem Gynecological examination normal (908073361498241) Routine gynecological examination (V72.31) Active confirmed Major Problem Screening for malignant neoplasm of colon (280266071) Special screening for malignant neoplasms, colon (V76.51) Active confirmed Major Plan Of Treatment Pending Test Test Name [...] End Date [employer] [address] [place] [address] [phone] [id number] DEENA SABILLON Self - patient is the [...]
--- OUTSIDE RECORDS SUMMARY | 2024-09-06 08:10 | XMS_ITS ---
Author Organization [facility] Address [address] [facility] [address] [place] [address] Care Team Providers Care Legal Analyst Name Role Phone Amanda Eli MD Primary Care Provider Sumaya Carvajal Unavailable [phone] Allergies No Known Allergies REASON FOR VISIT [...] Notes Problem Malignant neoplasm of female breast (172473320) Malignant neoplasm of unspecified site of left female breast (C50.912) Active confirmed Problem Anxiety disorder (380376038) Anxiety disorder, unspecified (F41.9) Active confirmed Problem Personal history of primary malignant neoplasm of breast (240031766) Personal history of malignant neoplasm of breast (Z85.3) Active confirmed Vital Signs Temperature 96.9 degrees Fahrenheit 08/04/19 24 Blood pressure systolic 134 mm Hg 08/04/19 24 Blood pressure diastolic 78 mm Hg 024 Height 63.5 in 08/04/2023 Weight 240 lbs 08/04/2023 BMI 41.84 kg/m2 08/04/2023 Encounters Encounter Location Date Provider Diagnosis [facility] [address] [place] [address] 08/04/2023 Sumaya Patton Malignant neoplasm of unspecified [...] IMPLICATIONS DIAGNOSIS. PAT HAS BEEN REFERRED TO [facility] AND HAS AN APPT TO [facility] DR [facility]HERTY ON 08/08/23 AT 8 AM[facility] QUESTIONS WERE ANSWERED. 08/04/2023 Anxiety disorder, [...] IMPLICATIONS DIAGNOSIS. PAT HAS BEEN REFERRED TO [facility] AND HAS AN APPT TO SEE DR FLAHERTY ON 08/08/23 AT 8 AM, [address] [facility]. QUESTIONS WERE ANSWERED. Anxiety disorder, unspecified PAT [...] * JOSSELIN SABILLONADOB:1960 ( 63 yo F)Acc No.[id number]:08/04/2023 PROGRESS NOTES Patient:?DEENA SABILLON Appointment Provider:?Sumaya bates M.D. :1960???Age:63 Y???Sex:Female D ate:08/04/2023 Address:[address] [place], [place] [id number] Pcp:Amanda Eli MD Subjective: * Chief Complaints: * ???BREAST BX RESULTS * HPI: ???New/Follow-up Patient Consult:? PAT HAD LEFT BREAST BIOPSY DONE FOR ABNORMAL MAMMOGRAM THIS MONTH AND IT SHOWED INVASIVE DUCTAL CA, GRADE 1, ESTROGEN AND PROGESTERONE RECEPTOR POSITIVE. ?SHE HAD UNDERGONE LEFT LUMPECTOMY IN 2004 FOR BREAST CA FOLLOWED BY RADIATION THERAPY AT [facility]. SHE HAD BEEN CANCER FREE UNTIL RECENTLY. * ROS:?general:?no?chest pain.?no?palpitations.?no?headache.?no?cough.?no?shortness of breath.?no?fever.?no?unexplained weight loss.?no?nausea/vomiting.?no?change in bowel movements.?no blood in stool.?no?genitourinary complaints.?no?skin complaints.? * Medical History:? * Tool Marker History:?/ Para?3/2.?Sexual activity?currently sexually active.?Last Pap Smear:?06/05/19 NIL, Neg HPV, 01/2017 , neg, NEG HRHPV.?Mammogram:?07/04/23 < 50% density, 06/26/21 < 50% density, 05/23/20 < 50% density, 11/20/19 Diagnostic, 02/2019 normal, 02/08/17 < 50% density, 2016, appt 02/08/17, 01/2014 , normal.?LMP and menses?[place] 2014, Light spotting started on 01/03/15, 10/08/2014 [...] Provider:?Sumaya Patton M.D. Date:?08/04/2023 Generated for Abad feliciano/Rhonda/eTdensmitting on:?09/06/2024 08:09 AM EDT History and Physical Notes * HPI (History of Present Illness) Category Sub-Category Detail Notes Category Not es New/Follow-up Patient Consult PAT HAD LEFT BREAST BIOPSY DONE FOR ABNORMAL MAMMOGRAM THIS MONTH AND IT SHOWED INVASIVE DUCTAL CA, GRADE 1, ESTROGEN AND PROGESTERONE RECEPTOR POSITIVE. SHE HAD UNDERGONE LEFT LUMPECTOMY IN 2004 FOR BREAST CA FOLLOWED BY RADIATION THERAPY AT [facility]. SHE HAD BEEN CANCER FREE UNTIL RECENTLY.
--- OUTSIDE RECORDS SUMMARY | 2024-09-06 08:10 | XMS_ITS | Continuity of Care Document ---
Author Organization [facility] Address [address] [place] [address]- Care Team Providers Care Bait Packer Name Role Phone Amanda Eli MD Primary Care Physician [phone] Encounter 09/01/24 - 09/02/[address] [address] Attending Physician: Not on Staff, Attending MD Referring Physician: Not on Staff, Referring MD Encounter Type: SMRI Allergies, Adverse Reactions, Alerts No Known Medication [...] MRI Safety Implantable Status Assigning Authority Unknown [id number] Unknown 09/17/23 Unknown Unknown Active Unknown Patient Care team information Care Team Personnel Name: Amanda Eli MD Position: [facility] Physician - Primary Care Member Role: PCP Address: [address] Telecom: Name: Mirta Arriaga RN Position: [facility] Onco RN Member Role: Primary Care Nurse Name: Vesta Zamora RN Position: [facility] RN Member Role: Primary Care Nurse Name: Alfreda Aggarwal RN Position: [facility] Onco RN Member Role: Primary Care Nurse Name: Jessica Tracy RN Position: S RN Member Role: Primary Care Nurse Name: Kaylee Britton LPN Position: [facility] RN Member Role: Primary Care Nurse Care Team Related Persons Name: AMANDA CALHOUN Name: PAMELA SABILLON Name: BEVERLEY SABILLON Insurance Providers Guarantor name: [facility] Health Plan Information #: 1 Payer: [employer] Member Number: NA Policy Number: NA Group Number: NA
--- OUTSIDE RECORDS SUMMARY | 2024-09-06 08:10 | XMS_ITS | Continuity of Care Document ---
Author Organization [facility] Address [address] [place] [address]- Care Team Providers Care Wool Grader Name Role Phone Amanda Eli MD Primary Care Physician [phone] [id number] Date[facility] 08/02/24 - 09/01/24 [facility] [address] [place] [address] Encounter Type: Triage Allergies, Adverse Reactions, Alerts [...] MRI Safety Implantable Status Assigning Authority Unknown [id number] Unknown 09/17/23 Unknown Unknown Active Unknown Patient Care team information Care Team Personnel Name: Amanda Eli MD Position: [facility] Physician - Primary Care Member Role: PCP Address: [address] Telecom: Name: Mirta Arriaga RN Position: [facility] Onco RN Member Role: Primary Care Nurse Name: Vesta Zamora RN Position: [facility] RN Member Role: Primary Care Nurse Name: Alfreda Aggarwal RN Position: [facility] Onco RN Member Role: Primary Care Nurse Name: Jessica Tracy RN Position: S RN Member Role: Primary Care Nurse Name: Kaylee Britton LPN Position: S RN Member Role: Primary Care Nurse Care Team Related Persons Name: AMANDA CALHOUN Name: PAMELA SABILLON Name: BEVERLEY SABILLON Insurance Providers Guarantor name: [facility] Health Plan Information #: 1 Payer: [employer] Member Number: NA Policy Number: NA Group Number: NA
--- OUTSIDE RECORDS SUMMARY | 2024-09-06 08:10 | XMS_ITS ---
Author Organization [facility] Address [address] [facility] [address] [place] [address] Care Team Providers Care Chief Power Dispatcher Name Role Phone Amanda Eli MD Primary Care Provider Sumaya Carvajal Unavailable [phone] REASON FOR VISIT BREAST BX SCHEDULED Encounters Encounter Location Date Provider Diagnosis [facility] [address] [facility] [address] [place] [address] 07/19/2023 Sumaya Patton Plan Of Treatment No Information Progress Notes * JOSSELIN SABILLONADOB:1960 ( 63 yo F)Acc No.[id number]:07/19/2023 Patient:?DEENA SABILLON :1960???Age:63 Y???Sex:Female Address:[address] [place] [address], , [place], [address] * true * Date:? Generated for Printi jodie/Rhonda/eTransmitting on:?09/06/2024 08:10 AM EDT
[2024-09-06 10:01] LABS: MANUAL DIFF FLAG NO
[2024-09-06 10:07] LABS: Basophils Absolute Auto 0.1 X10*3/uL (0.0-0.2); Basophils Percent Auto 0.8 % (0-2); Eosinophils Absolute Auto 0.1 X10*3/uL (0.0-0.4); Eosinophils Percent Auto 1.9 % (0-4); Hematocrit 45.1 % (37.0-47.0); Hemoglobin 14.2 g/dl (12.0-16.0); Imm Gran Abs Auto 0.01 X10*3/uL (0.00-0.03); Imm Gran Pct Auto 0.2 % (0.0-0.4); Lymphocytes Absolute Auto 1.9 X10*3/uL (1.2-4.9); Lymphocytes Percent Auto 30.2 % (20-40); Mean Corpuscular HGB Conc 31.5 g/dl (31.0-35.0); Mean Corpuscular Hemoglobin 26.2 pg (27.0-33.0); Mean Corpuscular Volume 83.2 fL (80.0-98.0); Mean Platelet Volume 9.6 fL (9.4-12.3); Monocytes Absolute Auto 0.6 X10*3/uL (0.1-1.2); Monocytes Percent Auto 9.1 % (2-11); Neutrophils Absolute Auto 3.6 x10*3/uL (2.0-8.3); Neutrophils Percent Auto 57.8 % (45-73); Platelet Count 221 X10*3/uL (160-400); Red Blood Count 5.42 X10*6/uL (4.20-5.50); Red Cell Distribution Width 14.6 % (11.0-16.0); White Blood Count 6.2 X10*3/uL (4.8-10.8)
[2024-09-06 10:12] LABS: Estimated Average Glucose 128 mg/dL; Hemoglobin A1C 158.6111 umol/L; Hemoglobin A1c % 6.1 % (<6.0); Total Hemoglobin (HGBA1C) 3700.9767 umol/L
[2024-09-06 10:42] LABS: Creatinine Urine 65.12 mg/dL; Microalbum/Creatinine Ratio Ur 19.9 ug/mg cr (<30)
[2024-09-06 10:52] LABS: Alanine Aminotransferase 17 U/L (0-31); Albumin Level 4.1 g/dL (3.5-5.0); Anion Gap 12 (12-20); Aspartate Amino Transferase 24 U/L (5-31); Bilirubin Total 0.5 mg/dL (0.0-1.0); Blood Urea Nitrogen 15 mg/dL (9-16); Calcium 9.5 mg/dL (8.4-10.2); Carbon Dioxide 27 mmol/L (22-29); Chloride 106 mmol/L (96-108); Cholesterol 113 mg/dL (<200); Estimated Glomerular Filt Rate > 60; Glucose Fasting 106 mg/dL (60-99); HDL Cholesterol 50 mg/dL (>40); LDL Cholesterol Calculated 52 mg/dL (<100); Potassium 4.2 mmol/L (3.3-5.1); Sodium 141 mmol/L (135-145); TSH reflex Free T4 0.64 uIU/mL (0.32-4.0); Total Protein 7.1 g/dL (6.5-8.0); Triglycerides 56 mg/dL (<150)
[2024-09-06 19:46] LABS: Alkaline Phosphatase 80 U/L (39-117)
== END 2024-09-06 08:04 | disposition home or self-care (01) ==
LOC: HO.HMGCLDS 08:03
PROVIDERS: PCP Internal Medicine; Visit Provider Internal Medicine
DX: E78.5 Hyperlipidemia, unspecified (principal); E11.9 Type 2 diabetes mellitus without complications; I10 Essential (primary) hypertension
CPT/HCPCS: 36415; 80053; 80061; 82043; 82570; 83036; 84443; 85025

== ENCOUNTER 2024-09-18 12:49 | Outpatient (REF) | payer BC, SELFPAY ==
[2024-09-18 16:09] LABS: Appearance Urine Clear; Color Urine Yellow; Glucose Urine UA >=1000 mg/dL (Negative); Leukocyte Esterase Urine Negative (Negative); Nitrite Urine Negative (Negative); UMIC TRIGGER UA YES; Urine Blood Negative (Negative); Urine Ketones Negative (Negative); Urine Protein Negative (Neg-Trace)
[2024-09-18 16:14] LABS: Bacteria Urine None Seen (None Seen); Hyaline Casts Urine 0-2 /LPF (0-2); RBC Urine 0-2 /HPF (0-2); Squamous Epithelial Cell Urine 0-2 /HPF (0-2); WBC Urine 0-5 /HPF (0-5)
== END 2024-09-18 12:50 | disposition home or self-care (01) ==
LOC: HO.HMGCLDS 12:49
PROVIDERS: PCP Internal Medicine; Visit Provider Internal Medicine
DX: R30.0 Dysuria (principal)
CPT/HCPCS: 81001; 87086

== ENCOUNTER 2024-09-18 12:49 | Outpatient (AMB) | payer BC, SELFPAY ==
--- NOTE | 2024-09-18 12:55 | MHC.PC.OV ---
Vital Signs 09/18/24 12:56 Height 5 ft 4 in Weight 215 lb 8 oz BMI 37.0 BP 128/72 Blood Pressure Location Rt brachial Position Sitting Pulse 91 Pulse Source Pulse Oximeter Pulse Oximetry (%) 95 Oxygen Delivery Method Room Air Intake Visit Reasons: Annual PE Allergies lisinopril Adverse Reaction (Unknown, Verified 09/18/24 12:56) Cough Medication List - Last Reconciled 09/18/24 by Amanda Eli MD albuterol sulfate 90 mcg/actuation 2 puffs inhalation Q6H anastrozole 1 mg PO DAILY atorvastatin 40 mg PO BEDTIME blood sugar diagnostic (Contour Next Test Strips) test blood sugar once a day dulaglutide (Trulicity) 0.75 mg (0.5 mL) subcut QWEEK Glyxambi 25-5 mg (empagliflozin-linagliptin) 1 tab PO DAILY NS lancets test blood sugar twice a day meloxicam 15 mg PO DAILY miscellaneous medical supply support pantyhose with zipper, compression 10-20 mmHg montelukast 10 mg PO BEDTIME olmesartan 20 mg PO DAILY Symbicort 80-4.5 mcg/actuation (budesonide-formoterol) 2 puffs inhalation BID NS Tobacco use date assessed: 09/18/24 Fall risk assessment: No Falls in past year Last assessed Fall Risk: 09/18/24 Dental Screening Dental Screen Date: 09/18/24 Did you have a dental visit in the last 12 months?: Yes Did you have a dental problem in the last 6 months where you did not have access to dental care?: No Was dental information given to patient?: Patient has dentist HPI Annual PE HPI Details Patient presents for physical. She complains of lower abdominal discomfort for 2 days, slightly increased urinary frequency but no dysuria back pain nausea vomiting fever chills. Patient has chronic constipation and denies hematochezia melena PFSH Medical History Sacroiliac joint disease Trochanteric bursitis Asthma Atrophic vaginitis Shoulder pain, right Pulmonary nodules/lesions, multiple Mammogram normal Normal colonoscopy Palpitations Obesity Annual physical exam Chronic asthma Type 2 diabetes mellitus Hypertension Back pain Neck pain Surgical History Hx of hysterectomy Hx of colonoscopy No pertinent past surgical history Family History Father No problems noted. Mother Stroke Son No problems noted. Daughter No problems noted. Social History Housing: House Patient Tobacco Use Status: Never used Tobacco e-Cigarette/Vaping Use: Never Used Second Hand Smoke Exposure: No service: No Current occupational status: employed Current occupational exposures/hazards: No Cognitive needs: No Hearing needs: No Vision needs: No Questionnaire Thrive Questionnaire Date Thrive assessed: 06/13/24 AUDIT C Alcohol Use Questionnaire (AUDIT-C) 1. How often do you have a drink containing alcohol?: Never 3. How often do you have six or more drinks on one occasion?: Never Total Score: 0 Score Reviewed/Action Taken: Yes WISAM-7 AMB Questionnaire WISAM-7 Date WISAM - 7 assessed: 06/13/24 Source: Developed by Drs. Gildardo Tomlinson, Claudia Hernandes, González Mason and colleagues, with an educational robyn from [employer]. Review of Systems Const All systems reviewed & are unremarkable except as noted in HPI and below Eyes Reports no additional complaints ENT Reports no additional complaints Card Reports no additional complaints Resp Reports no additional complaints GI Reports no additional complaints Physical exam (Primary Care) Vital Signs: Last Vital Signs Pulse 91 09/18/24 12:56 BP 128/72 09/18/24 12:56 Pulse Ox 95 09/18/24 12:56 Oxygen Delivery Method Room Air 09/18/24 12:56 BMI result Body Mass Index 37.0 Tobacco/Smoking Status: Tobacco use Status Tobacco use date assessed 09/18/24 09/18/24 12:58 Patient Tobacco Use Status Never used Tobacco 09/18/24 12:58 e-Cigarette/Vaping Use Never Used 09/18/24 12:58 Thrive Assessment: Date of Thrive Assessment Date Thrive assessed 06/13/24 09/18/24 12:58 Const General: no acute distress HENMT Head: Yes normal to inspection Throat: Yes posterior oropharynx normal Eyes General: appearance normal, both eyes and all related structures Neck Neck: Yes no lymphadenopathy and Yes supple Resp Effort & Inspection: normal respiratory effort Auscultation: clear to auscultation bilaterally Cardio Rhythm: regular rhythm Heart sounds: S1 normal heart sound present and S2 normal heart sound present GI Inspection: Yes normal to inspection Palpation (GI): Soft to palpation Percussion: Yes normal to percussion Auscultation: normal bowel sounds General: Yes Bimanual renal exam normal bilaterally and Yes no CVA tenderness Back/Spine/Pelvis Back: no CVA tenderness Coding Level of Care Code Est Pt Prev Care 40-64y(40199) Diagnoses Dysuria R30.0 Type 2 diabetes mellitus E11.9 Hypertension I10 Asthma J45.909 Annual physical exam Z00.00 Assessment & Plan Assessment & Plan (1) Dysuria: Code(s): R30.0 - Dysuria Category: Medical Plan: Check urinalysis and urine culture, Increase fluid intake, increasing fiber and water intake and MiraLax p.r.n. to prevent constipation discussed with the patient (2) Type 2 diabetes mellitus: Code(s): E11.9 - Type 2 diabetes mellitus without complications Category: Medical Plan: A1c is 6.1, ADA diet increase exercise weight loss discussed with the patient she declined increasing dose of Trulicity. Follow-up in 4 months with a fasting labs before (3) Hypertension: Code(s): I10 - Essential (primary) hypertension Category: Medical Plan: Continue current medications (4) Asthma: Code(s): J45.909 - Unspecified asthma, uncomplicated Category: Medical Plan: Continue Symbicort and albuterol p.r.n. (5) Annual physical exam: Code(s): Z00.00 - Encounter for general adult medical examination without abnormal findings Category: Medical Plan: Well-balanced diet regular physical activity decrease caloric intake weight loss discussed with the patient. She is up-to-date with the mammogram and follows up with [facility] oncology for history of breast cancer. Patient will have a colonoscopy. She had DEXA by Oncology and report will be obtained Orders: Orders Comprehensive [place]. Panel Fast 4 Months E11.9 - Type 2 diabetes mellitus without complications, I10 - Essential (primary) hypertension UA w Microscopic Today R30.0 - Dysuria Urine Culture Today R30.0 - Dysuria Hemoglobin A1c 4 Months E11.9 - Type 2 diabetes mellitus without complications, I10 - Essential (primary) hypertension Complete Blood Count Auto Diff 4 Months E11.9 - Type 2 diabetes mellitus without complications, I10 - Essential (primary) hypertension Lipid Panel 4 Months E11.9 - Type 2 diabetes mellitus without complications, I10 - Essential (primary) hypertension Microalbumin, Random (w Creat) 4 Months E11.9 - Type 2 diabetes mellitus without complications, I10 - Essential (primary) hypertension Medications: New hydrocortisone 2.5% 1 appl topical BID PRN 30 grams 1RF skin irritation
[2024-09-18 12:56] VITALS: BP 128/72; PULSE 91; O2SAT 95; BMI 37.0
--- OUTSIDE RECORDS SUMMARY | 2024-09-18 14:04 | XMS_ITS ---
Author Organization [facility] Address [address] [facility] [address] [place] [address] Care Team Providers Care Receiver/Laborer Name Role Phone Amanda Eli MD Primary Care Provider Sumaya Carvajal Unavailable [phone] REASON FOR VISIT BREAST BX SCHEDULED Encounters Encounter Location Date Provider Diagnosis [facility] [address] [place] [address] 07/19/2023 Sumaya Patton Plan Of Treatment No Information Progress Notes * JOSSELIN SABILLONADOB:1960 ( 63 yo F)Acc No.[id number]:07/19/2023 Patient:?DEENA SABILLON :1960???Age:63 Y???Sex:Female Address:[address] [place] [address], , [place], [address] * true * Date:? Generated for Printi jodie/Rhonda/eTransmitting on:?09/18/2024 02:03 PM EDT
--- OUTSIDE RECORDS SUMMARY | 2024-09-18 14:04 | XMS_ITS | Patient Health Record ---
Author Organization [facility] Address [address] [address] Care Team Providers Care Pharmacy Technician Instructor Name Role Phone Amanda Eli MD Primary Care Provider Sumaya Carvajal Unavailable [phone] Allergies No Known Allergies Reason For Referral [...] W/U Status Risk Notes Problem Postmenopausal bleeding (22957935) Postmenopausal bleeding (N95.0) Active confirmed Problem Malignant neoplasm of female breast (848891509) Malignant neoplasm of unspecified site of left female breast (C50.912) Active confirmed Problem Morbid obesity (disorder) (912658170) Morbid (severe) obesity due to excess calories (E66.01) Active confirmed Problem Anxiety disorder (119190465) Anxiety disorder, unspecified (F41.9) Active confirmed Problem Personal history of primary malignant neoplasm of breast (113685711) Personal history of malignant neoplasm of breast (Z85.3) Active confirmed Problem Malignant neoplasm of female breast (700426859) Malignant neoplasm of other specified sites of female breast (174.8) Active confirmed Diag Problem Leiomyoma of uterus (33398504) Leiomyoma of uterus, unspecified (218.9) Active confirmed Major Problem Type II diabetes mellitus without complication (976484676) Diabetes mellitus without mention of complication, type II or unspecified type, not stated as uncontrolled (250.00) Active confirmed Major Problem Obesity (600834649) Obesity, unspecified (278.00) Active confirmed Diag Problem Benign essential hypertension (8123046) Essential hypertension, benign (401.1) Active confirmed Major Problem Breast lump (87178641) Lump or mass in breast (611.72) Active confirmed Diag Problem Menopausal symptom (28921081) Symptomatic menopausal or female climacteric states (627.2) Active confirmed Diag Problem Gynecological examination normal (088352061670141) Routine gynecological examination (V72.31) Active confirmed Major Problem Screening for malignant neoplasm of colon (464450767) Special screening for malignant neoplasms, colon (V76.51) [...] End Date [employer] [address] [place] [address] [id number] DEENA SABILLON Self - patient is the [...]
--- OUTSIDE RECORDS SUMMARY | 2024-09-18 14:04 | XMS_ITS ---
Author Organization [facility] Address [address] [facility] [address] [place] [address] Care Team Providers Care Offender Employment Specialist Name Role Phone Amanda Eli MD Primary Care Provider Sumaya Carvajal Unavailable [phone] Allergies No Known Allergies REASON FOR VISIT [...] Notes Problem Malignant neoplasm of female breast (010754529) Malignant neoplasm of unspecified site of left female breast (C50.912) Active confirmed Problem Anxiety disorder (337168001) Anxiety disorder, unspecified (F41.9) Active confirmed Problem Personal history of primary malignant neoplasm of breast (250511497) Personal history of malignant neoplasm of breast (Z85.3) Active confirmed Vital Signs Temperature 96.9 degrees Fahrenheit 08/04/19 24 Blood pressure systolic 134 mm Hg 08/04/19 24 Blood pressure diastolic 78 mm Hg 024 Height 63.5 in 08/04/2023 Weight 240 lbs 08/04/2023 BMI 41.84 kg/m2 08/04/2023 Encounters Encounter Location Date Provider Diagnosis [facility] [address] [place] [address] 08/04/2023 Sumaya Patton Malignant neoplasm of unspecified [...] IMPLICATIONS DIAGNOSIS. PAT HAS BEEN REFERRED TO [facility] AND HAS AN APPT TO SEE DR FLAHERTY ON 08/08/23 AT 8 AM[facility] [address] [facility] QUESTIONS WERE ANSWERED. 08/04/2023 Anxiety [...] IMPLICATIONS DIAGNOSIS. PAT HAS BEEN REFERRED TO [facility] AND HAS AN APPT TO SEE DR FLAHERTY ON 08/08/23 AT 8 AM, [address] [facility] [facility]. QUESTIONS WERE ANSWERED. Anxiety disorder, unspecified [...] * JOSSELIN SABILLONADOB:1960 ( 63 yo F)Acc No.[id number]:08/04/2023 PROGRESS NOTES Patient:?DEENA SABILLON Appointment Provider:?Sumaya bates M.D. :1960???Age:63 Y???Sex:Female D ate:08/04/2023 Address:[address] [place], [place] [id number] Pcp:Amanda Eli MD Subjective: * Chief Complaints: * ???BREAST BX RESULTS * HPI: ???New/Follow-up Patient Consult:? PAT HAD LEFT BREAST BIOPSY DONE FOR ABNORMAL MAMMOGRAM THIS MONTH AND IT SHOWED INVASIVE DUCTAL CA, GRADE 1, ESTROGEN AND PROGESTERONE RECEPTOR POSITIVE. ?SHE HAD UNDERGONE LEFT LUMPECTOMY IN 2004 FOR BREAST CA FOLLOWED BY RADIATION THERAPY AT [facility]. SHE HAD BEEN CANCER FREE UNTIL RECENTLY. * ROS:?general:?no?chest pain.?no?palpitations.?no?headache.?no?cough.?no?shortness of breath.?no?fever.?no?unexplained weight loss.?no?nausea/vomiting.?no?change in bowel movements.?no blood in stool.?no?genitourinary complaints.?no?skin complaints.? * Medical History:? 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 Date:?08/04/2023 Generated for Abad feliciano/Rhonda/Kamsmitting on:?09/18/2024 02:03 PM EDT History and Physical Notes * HPI (History of Present Illness) Category Sub-Category Detail Notes Category Not es New/Follow-up Patient Consult PAT HAD LEFT BREAST BIOPSY DONE FOR ABNORMAL MAMMOGRAM THIS MONTH AND IT SHOWED INVASIVE DUCTAL CA, GRADE 1, ESTROGEN AND PROGESTERONE RECEPTOR POSITIVE. SHE HAD UNDERGONE LEFT LUMPECTOMY IN 2004 FOR BREAST CA FOLLOWED BY RADIATION THERAPY AT [facility]. SHE HAD BEEN CANCER FREE UNTIL RECENTLY.
--- OUTSIDE RECORDS SUMMARY | 2024-09-18 14:04 | XMS_ITS | Continuity of Care Document ---
Author Organization [facility] Address [address] [place] [address] Care Team Providers Care Range Mounter Name Role Phone Amanda Eli MD Primary Care Physician Encounter [facility] [place] Date(s): 08/14/24 - 09/13/24 [facility] [address] [place], [place] [address] Attending Physician: Surya Garner Admitting Physician: Surya Garner Referring Physician: Surya Garner Encounter Type: Triage Allergies, Adverse Reactions, Alerts No Known Medication Allergies Substance Criticality Severity Reaction Reaction Severity Status Other Environmental Allergy congestion down (feathers) Active Problem List Condition Confirmation Course Effective Dates Status H ealth Status Informant DDD (degenerative disc disease), lumbar Confirmed Active EIN (endometrial intraepithelial neoplasia) Confirmed Active Greater trochanteric bursitis of right hip Confirmed Active Hemorrhoids Confirmed Active Lumbar radiculitis Confirmed Active Breast cancer, left breast Confirmed 2003 Active Myofascial pain syndrome of thoracic spine Confirmed Active Right leg pain Confirmed Active Severe [...] MRI Safety Implantable Status Assigning Authority Unknown [id number] Unknown 09/17/23 Unknown Unknown Active Unknown Patient Care team information Care Team Personnel Name: Amanda Eli MD Position: [facility] Physician - Primary Care Member Role: PCP Address: [address] [place], [place] [address] Telecom: Name: Mirta Arriaga RN Position: [facility] Onco RN Member Role: Primary Care Nurse Name: Vesta Zamora RN Position: [facility] RN Member Role: Primary Care Nurse Name: Alfreda Aggarwal RN Position: [facility] Onco RN Member Role: Primary Care Nurse Name: Jessica Tracy RN Position: [facility] RN Member Role: Primary Care Nurse Name: Kaylee Britton LPN Position: [facility] RN Member Role: Primary Care Nurse Care Team Related Persons Name: AMANDA CALHOUN Name: PAMELA SABILLON Name: BEVERLEY SABILLON Insurance Providers Guarantor name: [facility] Health Plan Information #: 1 Payer: [employer] Member Number: NA Policy Number: NA Group Number: NA
== END 2024-09-18 14:07 | disposition home or self-care (01) ==
LOC: HO.HMCC 12:49
PROVIDERS: PCP Internal Medicine; Visit Provider Internal Medicine
DX: R30.0 Dysuria (principal); E11.9 Type 2 diabetes mellitus without complications; I10 Essential (primary) hypertension; J45.909 Unspecified asthma, uncomplicated; Z00.00 Encounter for general adult medical examination without abnormal findings

== ENCOUNTER 2024-11-11 11:46 | Outpatient (REF) | payer BC, SELFPAY ==
--- NOTE | ~2024-11-11 | XR_ITS ---
EXAMINATION: X-ray knee is, bilaterally. CLINICAL INFORMATION: Knee pain. TECHNIQUE: AP views both knees in standing position. Lateral and sunrise views. COMPARISON: None FINDINGS: There is joint space narrowing involving mostly the medial compartments of the knees more pronounced on the left lower extremity. There is sclerosis along the articular surface of the tibial plateaus, bilaterally. Small exostosis at the quadriceps tendon insertion, bilaterally. No gross suprapatellar bursa joint effusion. Prominent tortuous vessels in the medial left lower extremity/thigh. No acute cortical disruption or gross malalignment. 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 Probable varices, left lower extremity. Electronically signed by: Steve Manjarrez MD 11/11/2024 01:38 PM EDT
== END 2024-11-11 11:47 | disposition home or self-care (01) ==
LOC: HO.HMGCX 11:46
PROVIDERS: PCP Internal Medicine; Visit Provider Internal Medicine
DX: M25.561 Pain in right knee (principal); M25.562 Pain in left knee
CPT/HCPCS: 73562

== ENCOUNTER 2024-11-11 11:46 | Outpatient (AMB) | payer BC, SELFPAY ==
[2024-11-11 12:06] VITALS: BP 110/68; PULSE 82; RESP 18; TEMP 36.7; O2SAT 97; BMI 36.9
--- NOTE | 2024-11-11 12:06 | MHC.PC.OV ---
Vital Signs 11/11/24 12:06 Height 5 ft 4 in Weight 215 lb BMI 36.9 BP 110/68 Blood Pressure Location Rt brachial Position Sitting Respiration 18 Pulse 82 Pulse Source Pulse Oximeter Temp 98.0 F Temp Source Oral Pulse Oximetry (%) 97 Oxygen Delivery Method Room Air Intake Visit Reasons: pain on LT leg Intake Note: Pt is here today for a sick visit. Pt c/o L leg pain. Allergies lisinopril Adverse Reaction (Unknown, Verified 11/11/24 12:10) Cough Medication List - Last Reconciled 11/11/24 by Amanda Eli MD albuterol sulfate 90 mcg/actuation 2 puffs inhalation Q6H anastrozole 1 mg PO DAILY atorvastatin 40 mg PO BEDTIME blood sugar diagnostic (Contour Next Test Strips) test blood sugar once a day dulaglutide (Trulicity) 0.75 mg (0.5 mL) subcut QWEEK Glyxambi 25-5 mg (empagliflozin-linagliptin) 1 tab PO DAILY NS hydrocortisone 2.5% 1 appl topical BID PRN lancets test blood sugar twice a day meloxicam 15 mg PO DAILY miscellaneous medical supply support pantyhose with zipper, compression 10-20 mmHg montelukast 10 mg PO BEDTIME olmesartan 20 mg PO DAILY Symbicort 80-4.5 mcg/actuation (budesonide-formoterol) 2 puffs inhalation BID NS Tobacco use date assessed: 11/11/24 Fall risk assessment: No Falls in past year Last assessed Fall Risk: 11/11/24 Dental Screening Dental Screen Date: 09/18/24 HPI pain on LT leg HPI Details Patient presents complaining of persistent chronic left leg pain heavy and burning sensation in the thigh and calf and stiffness in the knee worse when patient is resting and sleeping. Dependent improved some patient is walking. She denies lower back pain weakness or numbness in extremities change in bowel or bladder function. Type 2 diabetes is controlled on current medications [facility] History Sacroiliac joint disease Trochanteric bursitis Asthma Atrophic vaginitis Shoulder pain, right Pulmonary nodules/lesions, multiple Mammogram normal Normal colonoscopy Palpitations Obesity Annual physical exam Chronic asthma Type 2 diabetes mellitus Hypertension Back pain Neck pain Surgical History Hx of hysterectomy Hx of colonoscopy No pertinent past surgical history Family History Father No problems noted. Mother Stroke Son No problems noted. Daughter No problems noted. Social History Housing: House Patient Tobacco Use Status: Never used Tobacco e-Cigarette/Vaping Use: Never Used Second Hand Smoke Exposure: No service: No Current occupational status: employed Current occupational exposures/hazards: No Cognitive needs: No Hearing needs: No Vision needs: No Questionnaire Thrive Questionnaire Date Thrive assessed: 06/13/24 WISAM-7 AMB Questionnaire WISAM-7 Date WISAM - 7 assessed: 06/13/24 Source: Developed by Drs. Gildardo Tomlinson, Claudia Hernandes, González Mason and colleagues, with an educational robyn from [employer]. Review of Systems Const All systems reviewed & are unremarkable except as noted in HPI and below Eyes Reports no additional complaints ENT Reports no additional complaints Card Reports no additional complaints Resp Reports no additional complaints GI Reports no additional complaints Reports no additional complaints Physical exam (Primary Care) Vital Signs: Last Vital Signs Temp 98.0 F 11/11/24 12:06 Pulse 82 11/11/24 12:06 Resp 18 11/11/24 12:06 BP 110/68 11/11/24 12:06 Pulse Ox 97 11/11/24 12:06 Oxygen Delivery Method Room Air 11/11/24 12:06 BMI result Body Mass Index 36.9 Tobacco/Smoking Status: Tobacco use Status Tobacco use date assessed 11/11/24 11/11/24 12:13 Patient Tobacco Use Status Never used Tobacco 11/11/24 12:13 e-Cigarette/Vaping Use Never Used 11/11/24 12:06 Thrive Assessment: Date of Thrive Assessment Date Thrive assessed 06/13/24 11/11/24 12:06 Const General: no acute distress HENMT Throat: Yes posterior oropharynx normal Neck Neck: Yes supple Resp Effort & Inspection: normal respiratory effort Auscultation: clear to auscultation bilaterally Cardio Rhythm: regular rhythm Heart sounds: S1 normal heart sound present and S2 normal heart sound present Extrem Other: There is decreased range of motion crepitus of both knees. There is no soft tissue swelling, not calf tenderness erythema or warmth, superficial extensive varicose veins of left lower extremity Coding Level of Care Code Est Pt Level 4 (46906) Diagnoses Knee pain, bilateral M25.561; M25.562 Varicose veins of bilateral lower extremities with pain I83.813 Type 2 diabetes mellitus E11.9 Assessment & Plan Assessment & Plan (1) Knee pain, bilateral: Code(s): M25.561 - Pain in right knee; M25.562 - Pain in left knee Category: Medical Plan: For bilateral knee pain obtain x-rays of both knees and referred to physical therapy. Meloxicam is prescribed (2) Varicose veins of bilateral lower extremities with pain: Comment: Evaluated by vascular surgeon Code(s): I83.813 - Varicose veins of bilateral lower extremities with pain Category: Medical Plan: Patient has an appointment next month with vascular surgeon for varicose veins sclerotherapy, she was advised to wear compression leg wear (3) Type 2 diabetes mellitus: Code(s): E11.9 - Type 2 diabetes mellitus without complications Category: Medical Plan: Continue current medication Orders: Orders XR Knee Pepe 3V Today M25.561 - Pain in right knee, M25.562 - Pain in left knee PT Evaluation and Treatment Today M25.561 - Pain in right knee, M25.562 - Pain in left knee Medications: Refilled meloxicam 15 mg PO DAILY 30 tabs 0RF
--- OUTSIDE RECORDS SUMMARY | 2024-11-11 13:23 | XMS_ITS | Patient Health Record ---
Author Organization [facility] Address [address] [address] Care Team Providers Care Fondant Cooker Name Role Phone Amanda Eli MD Primary Care Provider Sumaya Carvajal Unavailable [phone] Allergies No Known Allergies Reason For Referral [...] W/U Status Risk Notes Problem Postmenopausal bleeding (45932128) Postmenopausal bleeding (N95.0) Active confirmed Problem Malignant neoplasm of female breast (849063296) Malignant neoplasm of unspecified site of left female breast (C50.912) Active confirmed Problem Morbid obesity (disorder) (276901656) Morbid (severe) obesity due to excess calories (E66.01) Active confirmed Problem Anxiety disorder (790885962) Anxiety disorder, unspecified (F41.9) Active confirmed Problem Personal history of primary malignant neoplasm of breast (063321093) Personal history of malignant neoplasm of breast (Z85.3) Active confirmed Problem Malignant neoplasm of female breast (095183365) Malignant neoplasm of other specified sites of female breast (174.8) Active confirmed Diag Problem Leiomyoma of uterus (03932329) Leiomyoma of uterus, unspecified (218.9) Active confirmed Major Problem Type II diabetes mellitus without complication (748576824) Diabetes mellitus without mention of complication, type II or unspecified type, not stated as uncontrolled (250.00) Active confirmed Major Problem Obesity (465119855) Obesity, unspecified (278.00) Active confirmed Diag Problem Benign essential hypertension (9527052) Essential hypertension, benign (401.1) Active confirmed Major Problem Breast lump (35637181) Lump or mass in breast (611.72) Active confirmed Diag Problem Menopausal symptom (68085877) Symptomatic menopausal or female climacteric states (627.2) Active confirmed Diag Problem Gynecological examination normal (459523110577699) Routine gynecological examination (V72.31) Active confirmed Major Problem Screening for malignant neoplasm of colon (772697965) Special screening for malignant neoplasms, colon (V76.51) [...] End Date [employer] [address] [place] [address] [id number] DEENA SABILLON Self - patient is the [...]
== END 2024-11-11 13:19 | disposition home or self-care (01) ==
LOC: HO.HMCC 11:46
PROVIDERS: PCP Internal Medicine; Visit Provider Internal Medicine
DX: M25.561 Pain in right knee (principal); M25.562 Pain in left knee; I83.813 Varicose veins of bilateral lower extremities with pain; E11.9 Type 2 diabetes mellitus without complications

== ENCOUNTER → 2024-11-11 13:11 | Outpatient (BNV) | payer BC, SELFPAY | PROVIDERS: PCP Internal Medicine; Visit Provider Radiology Diagnostic Radiology | DX: M17.0 Bilateral primary osteoarthritis of knee (principal) | CPT/HCPCS: 73562 ==

== ENCOUNTER 2025-01-04 07:46 | Outpatient (REF) | payer BC, SELFPAY ==
[2025-01-04 11:29] LABS: MANUAL DIFF FLAG NO
[2025-01-04 11:33] LABS: Hematocrit 45.9 % (37.0-47.0); Hemoglobin 14.8 g/dl (12.0-16.0); Imm Gran Abs Auto 0.02 X10*3/uL (0.00-0.03); Imm Gran Pct Auto 0.3 % (0.0-0.4); Lymphocytes Absolute Auto 2.2 X10*3/uL (1.2-4.9); Mean Corpuscular HGB Conc 32.2 g/dl (31.0-35.0); Mean Corpuscular Hemoglobin 26.5 pg (27.0-33.0); Mean Corpuscular Volume 82.3 fL (80.0-98.0); NRBC Abs Auto 0.000 X10*3/uL (0.0-0.012); NRBC Pct Auto 0.0 /100WBC (0.0-0.2); Platelet Count 225 X10*3/uL (160-400); Red Blood Count 5.58 X10*6/uL (4.20-5.50); White Blood Count 7.6 X10*3/uL (4.8-10.8)
[2025-01-04 11:43] LABS: Hemoglobin A1C 159.0534 umol/L; Total Hemoglobin (HGBA1C) 3849.1404 umol/L
[2025-01-04 11:53] LABS: Alanine Aminotransferase 20 U/L (0-31); Albumin Level 4.6 g/dL (3.5-5.0); Alkaline Phosphatase 77 U/L (39-117); Anion Gap 14 (12-20); Aspartate Amino Transferase 33 U/L (5-31); Blood Urea Nitrogen 21 mg/dL (9-16); Calcium 9.9 mg/dL (8.4-10.2); Carbon Dioxide 27 mmol/L (22-29); Chloride 105 mmol/L (96-108); Cholesterol 108 mg/dL (<200); Estimated Glomerular Filt Rate > 60; HDL Cholesterol 52 mg/dL (>40); Potassium 4.8 mmol/L (3.3-5.1); Sodium 141 mmol/L (135-145); Total Protein 7.4 g/dL (6.5-8.0); Triglycerides 52 mg/dL (<150)
[2025-01-04 11:55] LABS: Microalbum/Creatinine Ratio Ur 4.4 ug/mg cr (<30)
== END 2025-01-04 07:47 | disposition home or self-care (01) ==
LOC: HO.HMGCLDS 07:46
PROVIDERS: PCP Internal Medicine; Visit Provider Internal Medicine
DX: E11.9 Type 2 diabetes mellitus without complications (principal); I10 Essential (primary) hypertension
CPT/HCPCS: 36415; 80053; 80061; 82043; 82570; 83036; 85025

== ENCOUNTER 2025-02-03 13:25 | Outpatient (AMB) | payer BC, SELFPAY ==
--- NOTE | 2025-02-03 13:26 | MHC.PC.OV ---
Vital Signs 02/03/25 13:29 Height 5 ft 4 in Weight 210 lb BMI 36.0 BP 120/70 Blood Pressure Location Rt brachial Position Sitting Respiration 19 Pulse 93 Pulse Source Pulse Oximeter Temp 97.7 F Temp Source Oral Pulse Oximetry (%) 96 Oxygen Delivery Method Room Air Intake Visit Reasons: Follow up DM Intake Note: Pt is here today for a follow up visit on DM. Allergies metformin Adverse Reaction (Intermediate, Verified 02/03/25 14:57) Abdominal Pain lisinopril Adverse Reaction (Unknown, Verified 02/03/25 13:31) Cough Medication List - Last Reconciled 02/03/25 by Amanda Eli MD albuterol sulfate 90 mcg/actuation 2 puffs inhalation Q6H anastrozole 1 mg PO DAILY atorvastatin 40 mg PO BEDTIME blood sugar diagnostic (Contour Next Test Strips) test blood sugar once a day dulaglutide (Trulicity) 0.75 mg (0.5 mL) subcut QWEEK Glyxambi 25-5 mg (empagliflozin-linagliptin) 1 tab PO DAILY NS hydrocortisone 2.5% 1 appl topical BID PRN lancets test blood sugar twice a day meloxicam 15 mg PO DAILY miscellaneous medical supply support pantyhose with zipper, compression 10-20 mmHg montelukast 10 mg PO BEDTIME olmesartan 20 mg PO DAILY Symbicort 80-4.5 mcg/actuation (budesonide-formoterol) 2 puffs inhalation BID NS Tobacco use date assessed: 02/03/25 Fall risk assessment: No Falls in past year Last assessed Fall Risk: 02/03/25 Dental Screening Dental Screen Date: 02/03/25 Did you have a dental visit in the last 12 months?: Yes Did you have a dental problem in the last 6 months where you did not have access to dental care?: No Was dental information given to patient?: Patient has dentist HPI Follow up DM HPI Details Patient presents for the follow-up of type 2 diabetes chronic asthma hyperlipidemia and hypertension. Patient had upper respiratory infection and tested positive for COVID a month ago. Patient is started to have intermittent palpitations on and off not related to physical activity. She denies chest pain dyspnea on exertion PND orthopnea cough pleurisy fever chills GI or complaints. Patient is established with [facility] and had extensive cardiac workup for episodes of chest pain last year including negative cardiac catheterization. Patient has follow-up with Oncology for history of breast CA and has been taking anastrozole [facility] Medical History (Updated 02/03/25 @ 14:59 by Amanda Eli MD) Sacroiliac joint disease Trochanteric bursitis Asthma Atrophic vaginitis Shoulder pain, right Pulmonary nodules/lesions, multiple Mammogram normal Normal colonoscopy Palpitations Obesity Annual physical exam Chronic asthma Type 2 diabetes mellitus Hypertension Back pain Neck pain Surgical History Hx of hysterectomy Hx of colonoscopy No pertinent past surgical history Family History Father No problems noted. Mother Stroke Son No problems noted. Daughter No problems noted. Social History Housing: House Patient Tobacco Use Status: Never used Tobacco e-Cigarette/Vaping Use: Never Used Second Hand Smoke Exposure: No service: No Current occupational status: employed Current occupational exposures/hazards: No Cognitive needs: No Hearing needs: No Vision needs: No Questionnaire PHQ-9 Over the last 2 weeks, how often have you been bothered by any of the following problems? 1. Little interest or pleasure in doing things: not at all 2. Feeling down, depressed, or hopeless: not at all 3. Trouble falling or staying asleep, or sleeping too much: not at all 4. Feeling tired or having little energy: not at all 5. Poor appetite or overeating: not at all 6. Feeling bad about yourself - or that you are a failure or have let yourself or your family down: not at all 7. Trouble concentrating on things, such as reading the newspaper or watching television: not at all 8. Moving or speaking so slowly that other people could have noticed. Or the opposite - being so fidgety or restless that you have been moving around a lot more than usual: not at all 9. Thoughts that you would be better off or of hurting yourself in some way: not at all Total score: 0 Depression Screening Interpretation: Negative Depression Screening Done: Yes Source: Developed by Drs. Gildardo Tomlinson, Claudia B.W. González Hernandes and colleagues, with an educational robyn from [employer]. Thrive Questionnaire Date Thrive assessed: 06/13/24 AUDIT C Alcohol Use Questionnaire (AUDIT-C) 1. How often do you have a drink containing alcohol?: Never 3. How often do you have six or more drinks on one occasion?: Never Total Score: 0 WISAM-7 AMB Questionnaire WISAM-7 Date WISAM - 7 assessed: 06/13/24 Feeling nervous, anxious, or on edge: 0 = Not at all Not being able to stop or control worryin = Not at all Worrying too much about different things: 0 = Not at all Trouble relaxin = Not at all Being so restless that it is hard to sit still: 0 = Not at all Becoming easily annoyed or irritable: 0 = Not at all Feeling afraid as if something awful might happen: 0 = Not at all Total WISAM-7 score (0-4 normal; 5-9 mild; 10-14 moderate; 15-21 severe): 0 Source: Developed by Drs. Gildardo Tomlinson, González Connor and colleagues, with an educational robyn from [employer]. Review of Systems Const All systems reviewed & are unremarkable except as noted in HPI and below Eyes Reports no additional complaints ENT Reports no additional complaints Card Reports no additional complaints Resp Reports no additional complaints GI Reports no additional complaints Reports no additional complaints Physical exam (Primary Care) Vital Signs: Last Vital Signs Temp 97.7 F 02/03/25 13:29 Pulse 93 02/03/25 13:29 Resp 19 02/03/25 13:29 BP 120/70 02/03/25 13:29 Pulse Ox 96 02/03/25 13:29 Oxygen Delivery Method Room Air 02/03/25 13:29 BMI result Body Mass Index 36.0 Tobacco/Smoking Status: Tobacco use Status Tobacco use date assessed 02/03/25 02/03/25 13:32 Patient Tobacco Use Status Never used Tobacco 02/03/25 13:27 e-Cigarette/Vaping Use Never Used 02/03/25 13:27 PHQ-9: PHQ-9 Score PHQ-9: Total score 0 02/03/25 13:37 Depression Screening Interpretation: Negative Thrive Assessment: Date of Thrive Assessment Date Thrive assessed 06/13/24 02/03/25 13:27 Const General: no acute distress HENMT Head: Yes normal to inspection Ears: hearing grossly normal bilaterally Face and sinus: Yes normal facial exam Mouth: Normal oral and palatal mucosa present Eyes General: appearance normal, both eyes and all related structures Neck Neck: Yes no lymphadenopathy and Yes supple Resp Effort & Inspection: normal respiratory effort Auscultation: clear to auscultation bilaterally Cardio Rhythm: regular rhythm Heart sounds: S1 normal heart sound present and S2 normal heart sound present GI Inspection: Yes normal to inspection Palpation (GI): Soft to palpation Percussion: Yes normal to percussion Auscultation: normal bowel sounds Coding Level of Care Code Est Pt Level 4 (74690) Diagnoses Hypertension I10 Type 2 diabetes mellitus E11.9 Asthma J45.909 Breast cancer C50.919 Palpitations R00.2 Assessment & Plan Assessment & Plan (1) Hypertension: Code(s): I10 - Essential (primary) hypertension Category: Medical Plan: Continue current medications (2) Type 2 diabetes mellitus: Code(s): E11.9 - Type 2 diabetes mellitus without complications Category: Medical Plan: A1c is 5.9, ADA diet increase exercise weight loss discussed with the patient she declined decreasing the dose of Trulicity. Patient will continue Glyxambi (3) Asthma: Code(s): J45.909 - Unspecified asthma, uncomplicated Category: Medical Plan: Continue Symbicort (4) Breast cancer: Comment: recurrent R breast f/u [facility] oncology 07/2023, status post mastectomy started on anastrozole Code(s): C50.919 - Malignant neoplasm of unspecified site of unspecified female breast Category: Medical Plan: Follow-up with oncology (5) Palpitations: Comment: Negative cardiac workup by [facility] 2023, including cardiac catheterization Code(s): R00.2 - Palpitations Category: Medical Plan: EKG showed normal sinus rhythm no ST-T changes. Patient will follow-up with [facility] Orders: Orders Comprehensive [place]. Panel Fast 6 Months C50.919 - Malignant neoplasm of unspecified site of unspecified female breast, E11.9 - Type 2 diabetes mellitus without complications, I10 - Essential (primary) hypertension, J45.909 - Unspecified asthma, uncomplicated, Z00.00 - Encounter for general adult medical examination without abnormal findings Complete Blood Count Auto Diff 6 Months C50.919 - Malignant neoplasm of unspecified site of unspecified female breast, E11.9 - Type 2 diabetes mellitus without complications, I10 - Essential (primary) hypertension, J45.909 - Unspecified asthma, uncomplicated, Z00.00 - Encounter for general adult medical examination without abnormal findings Lipid Panel 6 Months C50.919 - Malignant neoplasm of unspecified site of unspecified female breast, E11.9 - Type 2 diabetes mellitus without complications, I10 - Essential (primary) hypertension, J45.909 - Unspecified asthma, uncomplicated, Z00.00 - Encounter for general adult medical examination without abnormal findings Hemoglobin A1c 6 Months C50.919 - Malignant neoplasm of unspecified site of unspecified female breast, E11.9 - Type 2 diabetes mellitus without complications, I10 - Essential (primary) hypertension, J45.909 - Unspecified asthma, uncomplicated, Z00.00 - Encounter for general adult medical examination without abnormal findings TSH reflex Free T4 6 Months C50.919 - Malignant neoplasm of unspecified site of unspecified female breast, E11.9 - Type 2 diabetes mellitus without complications, I10 - Essential (primary) hypertension, J45.909 - Unspecified asthma, uncomplicated, Z00.00 - Encounter for general adult medical examination without abnormal findings Microalbumin, Random (w Creat) 6 Months C50.919 - Malignant neoplasm of unspecified site of unspecified female breast, E11.9 - Type 2 diabetes mellitus without complications, I10 - Essential (primary) hypertension, J45.909 - Unspecified asthma, uncomplicated, Z00.00 - Encounter for general adult medical examination without abnormal findings AMB EKG-In Office Today E11.9 - Type 2 diabetes mellitus without complications, I10 - Essential (primary) hypertension, R00.2 - Palpitations Medications: New triamcinolone acetonide 0.1% 1 appl topical DAILY 30 grams 0RF Refilled albuterol sulfate 90 mcg/actuation 2 puffs inhalation Q6H 8.5 grams 5RF
[2025-02-03 13:29] VITALS: BP 120/70; PULSE 93; RESP 19; TEMP 36.5; O2SAT 96; BMI 36.0
--- OUTSIDE RECORDS SUMMARY | 2025-02-03 18:38 | XMS_ITS | Patient Health Record ---
Author Organization [facility] Address [address] [place] [address] Care Team Providers Care Paint Line Production Supervisor Name Role Phone Amanda Eli MD Primary Care Provider Sumaya Carvajal Unavailable [phone] Allergies No Known Allergies Reason For Referral No Information Medications Medication SIG (Take, Route, Frequency, Duration) Notes Start Date End Date Status Terazol 3 0.8 % 1 application at bed time Vaginal EVERY NIGHT X 3; Duration: 3 day(s) 08/11/2021 Not-Taking Ativan 0.5 MG 1 tablet as needed Orally every 6 hrs prn; Duration: 30 days 08/04/2023 Active Olmesartan Medoxomil 20 MG Oral; Duration: 30 Active Glyxambi 25-5 MG Oral; Duration: 30 Active Singulair 10 MG 1 tablet in the even ing Orally Once a day Active Metoprolol Succinate ER 25 MG Oral; Duration: 30 Active miSOPROStol 200 MCG 2 Orally night befor e procedure; Duration: 1 days 08/11/2021 Active Terazol 3 0.8 % 1 application at bed time Vaginal EVERY NIGHT X 3; Duration: 3 day(s) 07/27/2022 Active Social History Tobacco [...] W/U Status Risk Notes Problem Postmenopausal bleeding (65338367) Postmenopausal bleeding (N95.0) Active confirmed Problem Malignant neoplasm of female breast (017790615) Malignant neoplasm of unspecified site of left female breast (C50.912) Active confirmed Problem Morbid obesity (disorder) (721855749) Morbid (severe) obesity due to excess calories (E66.01) Active confirmed Problem Anxiety disorder (307154646) Anxiety disorder, unspecified (F41.9) Active confirmed Problem Personal history of primary malignant neoplasm of breast (405029897) Personal history of malignant neoplasm of breast (Z85.3) Active confirmed Problem Malignant neoplasm of female breast (246364552) Malignant neoplasm of other specified sites of female breast (174.8) Active confirmed Diag Problem Leiomyoma of uterus (25527621) Leiomyoma of uterus, unspecified (218.9) Active confirmed Major Problem Type II diabetes mellitus without complication (686861271) Diabetes mellitus without mention of complication, type II or unspecified type, not stated as uncontrolled (250.00) Active confirmed Major Problem Obesity (885493518) Obesity, unspecified (278.00) Active confirmed Diag Problem Benign essential hypertension (3478655) Essential hypertension, benign (401.1) Active confirmed Major Problem Breast lump (06111704) Lump or mass in breast (611.72) Active confirmed Diag Problem Menopausal symptom (17757154) Symptomatic menopausal or female climacteric states (627.2) Active confirmed Diag Problem Gynecological examination normal (340276469237291) Routine gynecological examination (V72.31) Active confirmed Major Problem Screening for malignant neoplasm of colon (133424464) Special screening for malignant neoplasms, colon (V76.51) [...] End Date [employer] [place] [address] [place] [address] [phone] [id number] LISASTEVENDEENA Self - patient is the insured Medical [...]
== END 2025-02-03 15:00 | disposition home or self-care (01) ==
LOC: HO.HMCC 13:25
PROVIDERS: PCP Internal Medicine; Visit Provider Internal Medicine
DX: I10 Essential (primary) hypertension (principal); E11.9 Type 2 diabetes mellitus without complications; J45.909 Unspecified asthma, uncomplicated; C50.919 Malignant neoplasm of unspecified site of unspecified female breast; R00.2 Palpitations

== ENCOUNTER 2025-04-28 08:34 | Outpatient (AMB) | payer BC, SELFPAY ==
--- NOTE | 2025-04-28 08:41 | A.OFFPC_ITS ---
Vital Signs 04/28/25 08:42 Height 5 ft 4 in Weight 211 lb BMI 36.2 BP 120/70 Blood Pressure Location Rt brachial Position Sitting Respiration 18 Pulse 84 Pulse Source Pulse Oximeter Temp 98.1 F Temp Source Oral Pulse Oximetry (%) 97 Oxygen Delivery Method Room Air Intake Visit Reasons: needs referral Intake Note: Pt is here today for a follow up visit to discuss referral to Procurement Coordinator. Allergies metformin Adverse Reaction (Intermediate, Verified 04/28/25 08:42) Abdominal Pain lisinopril Adverse Reaction (Unknown, Verified 04/28/25 08:42) Cough Medication List - Last Reconciled 04/28/25 by Amanda Eli MD albuterol sulfate 90 mcg/actuation 2 puffs inhalation Q6H anastrozole 1 mg PO DAILY atorvastatin 40 mg PO BEDTIME blood sugar diagnostic (Contour Next Test Strips) test blood sugar once a day dulaglutide (Trulicity) 0.75 mg (0.5 mL) subcut QWEEK Glyxambi 25-5 mg (empagliflozin-linagliptin) 1 tab PO DAILY NS hydrocortisone 2.5% 1 appl topical BID PRN lancets (Microlet Lancet) USE TO TEST BLOOD SUGAR ONCE A DAY meloxicam 15 mg PO DAILY miscellaneous medical supply support pantyhose with zipper, compression 10-20 mmHg montelukast 10 mg PO BEDTIME olmesartan 20 mg PO DAILY Symbicort 80-4.5 mcg/actuation (budesonide-formoterol) 2 puffs inhalation BID NS triamcinolone acetonide 0.1% 1 appl topical DAILY Tobacco use date assessed: 02/03/25 Fall risk assessment: No Falls in past year Last assessed Fall Risk: 04/28/25 Dental Screening Dental Screen Date: 02/03/25 HPI needs referral HPI Details Patient presents complaining of general arthralgia mainly both hands and knees. Patient reports morning stiffness in both hands lasting up to 10 minutes. She denies joint swelling erythema warmth. 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 Hypertension hyperlipidemia and diabetes is stable on current medications. [facility] Medical History (Updated 04/28/25 @ 09:25 by Amanda Eli MD) Arthralgia Sacroiliac joint disease Trochanteric bursitis Asthma Atrophic vaginitis Shoulder pain, right Pulmonary nodules/lesions, multiple Mammogram normal Normal colonoscopy Palpitations Obesity Annual physical exam Chronic asthma Type 2 diabetes mellitus Hypertension Back pain Neck pain Surgical History Hx of hysterectomy Hx of colonoscopy No pertinent past surgical history Family History Father No problems noted. Mother Stroke Son No problems noted. Daughter No problems noted. Social History Housing: House Patient Tobacco Use Status: Never used Tobacco e-Cigarette/Vaping Use: Never Used Second Hand Smoke Exposure: No service: No Current occupational status: employed Current occupational exposures/hazards: No Cognitive needs: No Hearing needs: No Vision needs: No Questionnaire Thrive Questionnaire Date Thrive assessed: 06/13/24 WISAM-7 AMB Questionnaire WISAM-7 Date WISAM - 7 assessed: 06/13/24 Source: Developed by Drs. Gildardo Tomlinson, Claudia Hernandes, González Mason and colleagues, with an educational robyn from [employer]. Review of Systems Const All systems reviewed & are unremarkable except as noted in HPI and below Eyes Reports no additional complaints ENT Reports no additional complaints Card Reports no additional complaints Resp Reports no additional complaints GI Reports no additional complaints Reports no additional complaints Physical exam (Primary Care) Vital Signs: Last Vital Signs Temp 98.1 F 04/28/25 08:42 Pulse 84 04/28/25 08:42 Resp 18 04/28/25 08:42 BP 120/70 04/28/25 08:42 Pulse Ox 97 04/28/25 08:42 Oxygen Delivery Method Room Air 04/28/25 08:42 BMI result Body Mass Index 36.2 Tobacco/Smoking Status: Tobacco use Status Tobacco use date assessed 02/03/25 04/28/25 08:44 Patient Tobacco Use Status Never used Tobacco 04/28/25 08:44 e-Cigarette/Vaping Use Never Used 04/28/25 08:44 Thrive Assessment: Date of Thrive Assessment Date Thrive assessed 06/13/24 04/28/25 08:44 Const General: no acute distress HENMT Head: Yes normal to inspection Throat: Yes posterior oropharynx normal Eyes General: appearance normal, both eyes and all related structures Neck Neck: Yes no lymphadenopathy and Yes supple Thyroid: diffusely enlarged Resp Effort & Inspection: normal respiratory effort Auscultation: clear to auscultation bilaterally Cardio Rhythm: regular rhythm Heart sounds: S1 normal heart sound present and S2 normal heart sound present GI Inspection: Yes normal to inspection Extrem Other: There are no deformities of both hands joints no erythema warmth or tenderness. There is decreased range of motion crepitus of both knees no joint tenderness erythema warmth General: Yes no clubbing, cyanosis or edema Coding Level of Care Code Est Pt Level 4 (36260) Diagnoses Arthralgia M25.50 Goiter E04.9 ENAMORADO (dyspnea on exertion) R06.09 Assessment & Plan Assessment & Plan (1) Arthralgia: Code(s): M25.50 - Pain in unspecified joint Category: Medical Plan: Obtain arthritis panel and x-ray of both hands to rule out RA, supportive care discussed with the patient (2) Goiter: Code(s): E04.9 - Nontoxic goiter, unspecified Category: Medical Plan: Obtain thyroid ultrasound to evaluate for goiter (3) ENAMORADO (dyspnea on exertion): Code(s): R06.09 - Other forms of dyspnea Category: Medical Plan: Check echocardiogram to evaluate for segmental wall motion abnormalities and check ejection fraction Orders: Orders XR Hand Bilat min 3v Today M25.50 - Pain in unspecified joint Rheumatoid Factor Today M25.50 - Pain in unspecified joint YANELI Reflex Titer and Pattern Today M25.50 - Pain in unspecified joint Lyme IgG/IgM w/reflex to WB Today M25.50 - Pain in unspecified joint Hemoglobin A1c Today E11.9 - Type 2 diabetes mellitus without complications C Reactive Protein Today M25.50 - Pain in unspecified joint US thyroid Today E04.9 - Nontoxic goiter, unspecified CA echo transthoracic complete Today R06.09 - Other forms of dyspnea Medications: New metronidazole 0.75% (MetroCream) 1 appl topical BEDTIME 45 grams 3RF
[2025-04-28 08:42] VITALS: BP 120/70; PULSE 84; RESP 18; TEMP 36.7; O2SAT 97; BMI 36.2
== END 2025-04-28 15:43 | disposition home or self-care (01) ==
LOC: HO.HMCC 08:34
PROVIDERS: PCP Internal Medicine; Visit Provider Internal Medicine
DX: M25.50 Pain in unspecified joint (principal); E04.9 Nontoxic goiter, unspecified; R06.09 Other forms of dyspnea

== ENCOUNTER 2025-05-09 09:49 | Outpatient (REF) | payer BC, SELFPAY ==
--- NOTE | ~2025-05-09 | XR_ITS ---
Exam: XR HAND 3 VIEWS BILATERAL, bilateral hand x-rays TECHNIQUE: AP, lateral, and oblique views upper extremity, bilateral hands INDICATION: M25.50 - Pain in unspecified joint COMPARISON: None available. FINDINGS: RIGHT HAND: Minute marginal osteophytes are evident IP joint of thumb, DIP joints of the second, third, and fifth digits and first MCP joint. No fracture is identified. Nonspecific degenerative cyst is present in the proximal end of scaphoid. LEFT HAND: There is mild to moderate narrowing with sclerosis and marginal osteophytes at the first CMC joint There are no erosions. No fracture lines are identified. XR/XR Hand Bilat min 3v IMPRESSION: Right hand: Mild degenerative changes consistent with osteoarthritis. Left hand: Moderate osteoarthritis of the first CMC joint. Electronically signed by: Jaime Luther MD 05/09/2025 10:20 AM HERO
--- OUTSIDE RECORDS SUMMARY | 2025-05-09 10:50 | XMS_ITS | Encounter Summary ---
Author Organization [facility] Address [address] [place] [phone] Phone Care Team Providers Care State Fire Marshal Name Role Phone Amanda Eli MD Primary Care Provider [phone] Reason for Referral * Consultation (Within 1 month) - Pending Review Specialty Diagnoses / Procedures Referred By Lorne ponce Referred To Contact Amanda Eli MD Phone: tel: fax: Ralf Bui MD [address] [place] [phone] Phone: tel: fax: mailto:[email or web address] Referral ID Status Reason Start Date Expiration Date V isits Requested Visits Authorized [id number] Pending Review 03/13/2025 03/13/2026 1 1 Encounter Details Date Type Department Care Team (Late st Contact Info) Description 03/13/2025 Transcribe Orders [facility] Referral Management [address] [place] [address] Amanda Eli [place] [address] Social History Tobacco Use Types Packs/Day Years Used Date Smoking Tobacco: Never Assessed Comments Unknown Sex and Gender Information Value Date Recorded Sex Assigned at Not on file Legal Sex Female 9:48 PM EDT Gender Identity Not on file Sexual Orientation Not on file documented as of this encounter Plan of Treatment Upcoming Encounters Date Type Department Care Team (Late st Contact Info) Description 05/28/2025 1:00 PM EST Appointment [facility] [address], [address] [place] [address] Ralf Bui MD [address] [place] [address] [phone] [email or web address] 05/28/2025 2:00 PM EST Office Visit [facility] [address], [address] [place] [address] Adrianna Orozco CNP [address] [place] [phone] [email or web address] Scheduled Referrals Name Type Priority Associated Diagnoses Order Schedule Ambulatory referral to [facility]roke Outpatient Referral Routine Ordered: 03/13/2025 documented as of this encounter Visit Diagnoses Not on filedocumented in this encounter Care Teams State Fire Marshal Relationship Specialty Start Date End Date Amanda Eli MD [address] [place] [phone] PCP - General Internal Medicine 03/03/25 documented as of this encounter Additional Source Comments The information contained in this document represents components of the legal health record. It is not the complete legal health record.[facility]
--- OUTSIDE RECORDS SUMMARY | 2025-05-09 10:50 | XMS_ITS | Patient Health Record ---
Author Organization [facility] Address [address] [place] [address] Care Team Providers Care Client Account Assistant Name Role Phone Amanda Eli MD Primary Care Provider Sumaya Carvajal Unavailable [phone] Allergies No Known Allergies Reason For Referral [...] W/U Status Risk Notes Problem Postmenopausal bleeding (61851836) Postmenopausal bleeding (N95.0) Active confirmed Problem Malignant neoplasm of female breast (739072799) Malignant neoplasm of unspecified site of left female breast (C50.912) Active confirmed Problem Morbid obesity (disorder) (764842539) Morbid (severe) obesity due to excess calories (E66.01) Active confirmed Problem Anxiety disorder (491334843) Anxiety disorder, unspecified (F41.9) Active confirmed Problem Personal history of primary malignant neoplasm of breast (267753755) Personal history of malignant neoplasm of breast (Z85.3) Active confirmed Problem Malignant neoplasm of female breast (819060007) Malignant neoplasm of other specified sites of female breast (174.8) Active confirmed Diag Problem Leiomyoma of uterus (52208877) Leiomyoma of uterus, unspecified (218.9) Active confirmed Major Problem Type II diabetes mellitus without complication (877924401) Diabetes mellitus without mention of complication, type II or unspecified type, not stated as uncontrolled (250.00) Active confirmed Major Problem Obesity (074040997) Obesity, unspecified (278.00) Active confirmed Diag Problem Benign essential hypertension (4862876) Essential hypertension, benign (401.1) Active confirmed Major Problem Breast lump (85426264) Lump or mass in breast (611.72) Active confirmed Diag Problem Menopausal symptom (06098263) Symptomatic menopausal or female climacteric states (627.2) Active confirmed Diag Problem Gynecological examination normal (873930103500798) Routine gynecological examination (V72.31) Active confirmed Major Problem Screening for malignant neoplasm of colon (510370024) Special screening for malignant neoplasms, colon (V76.51) [...] End Date [employer] [address] [place] [address] [phone] [id number] LISASTEVENDEENA Self - patient is the insured [...]
--- OUTSIDE RECORDS SUMMARY | 2025-05-09 10:50 | XMS_ITS | Clinical Summary ---
Author Organization [facility] Address [address] [place] [address] Phone Care Team Providers Care Can Bander Operator Name Role Phone Amanda Eli MD Primary Care Provider [phone] Encounters Date Type Department Care Team Description 03/18/2025 Orders Only [facility] at the [address], [address], [address] [place] [address] Deondre, Chana Varicose veins of lower extremities with complications, unspecified laterality (Primary Dx) 03/18/2025 Orders Only [facility] at the [address], [address], [address] [place] [address] Deondre, Chana Varicose veins of lower extremity, unspecified laterality, unspecified whether complicated (Primary Dx) 03/13/2025 Transcribe Orders [facility] Referral Management [address] [place] [address] Amanda Eli MD from Last 3 Months Social History Tobacco Use Types Packs/Day Years Used Date Smoking Tobacco: Never Assessed Education Answer Date Recorded Are you interested in more education? Not on shani e 03/18/2025 Are you concerned about learning? Not on file 03/18/2025 No 03/18/2025 No 03/18/2025 Digital Access Answer Date Recorded No 03/18/2025 No 03/18/2025 Reliable internet access at home? Not on file 03/18/2025 Device with a working camera? Not on file Comments Unknown Sex and Gender Information Value Date Recorded Sex Assigned at Not on file Legal Sex Female 9:48 PM EDT Gender Identity Not on file Sexual Orientation Not on file Plan of Treatment Upcoming Encounters Date Type Department Care Team (Late st Contact Info) Description 05/28/2025 1:00 PM EST Appointment [facility] [place] [address] [place] [address] Ralf Bui MD [address] [place] [address] [address] [email or web address] 05/28/2025 2:00 PM EST Office Visit [facility] [place] [address], [address] [place] [address] Adrianna Orozco, STRIPPER MACHINE OPERATOR [address] [place] [phone] [email or web address] Health Maintenance Due Date Last Done Comments Adult Td,Tdap Booster 1960 LIPID PANEL 1960 DEPRESSION SCREENING 1972 SMOKING Hx and SMOKELESS TOB ACCO SCREENING 1973 HEPATITIS C SCREENING 1978 HIV ONE-TIME SCREENING (18-6 5 YEARS) 1978 PAP SMEAR 1981 MAMMOGRAM 2000 COLOGUARD 2005 COLONOSCOPY 2005 COLORECTAL CANCER SCREENING 2005 FIT TEST 2005 FOBT 2005 SIGMOIDOSCOPY 2005 VIRTUAL COLONOSCOPY 2005 PNEUMOCOCCAL VACCINES (50+ y ears) (1 of 1 - PCV) 2010 ZOSTER VACCINES (1 of 2) 2010 INFLUENZA VACCINE (#1) 2024 COVID-19 VACCINE ( - 2024-2 6 season) 2025 RSV VACCINE (1 - 1-dose 75+ series) 2035 HEPATITIS A VACCINES Aged Out No long er eligible based on patient's age to complete this topic HIB VACCINES Aged Out No longer eligi ble based on patient's age to complete this topic MENINGOCOCCAL VACCINES (ACWY) Aged Out No longer eligible based on patient's age to complete this topic MENINGOCOCCAL VACCINES (B) Aged Out N o longer eligible based on patient's age to complete this topic Medical Devices Not on file Insurance BLUE CROSS OUT OF STATE PPO BLUE CROSS OUT OF [facility] PPO BLUE CROSS OUT OF STATE PPO Care Teams Can Bander Operator Relationship Specialty Start Date End Date Amanda Eli MD [address] [place] [address] PCP - General Internal Medicine 03/03/25 Additional Source Comments The information contained in this document represents components of the legal health record. It is not the complete legal health record.[facility]
[2025-05-10 05:29] LABS: Lyme Abs Screen <0.90 index
== END 2025-05-09 09:50 | disposition home or self-care (01) ==
LOC: HO.HMGCX 09:49
PROVIDERS: PCP Internal Medicine; Visit Provider Internal Medicine
DX: Z01.84 Encounter for antibody response examination (principal); M25.541 Pain in joints of right hand; M25.542 Pain in joints of left hand; E11.9 Type 2 diabetes mellitus without complications
CPT/HCPCS: 36415; 73130; 83036; 86038; 86140; 86431; 86617; 86618

== ENCOUNTER → 2025-05-09 09:55 | Outpatient (BNV) | payer BC, SELFPAY | PROVIDERS: PCP Internal Medicine; Visit Provider Radiology Diagnostic Radiology | DX: M18.12 Unilateral primary osteoarthritis of first carpometacarpal joint, left hand (principal); M19.041 Primary osteoarthritis, right hand | CPT/HCPCS: 73130 ==

== ENCOUNTER 2025-05-14 11:20 | Outpatient (REF) | payer BC, SELFPAY ==
--- NOTE | ~2025-05-14 | US_ITS ---
EXAMINATION: US THYROID CLINICAL INFORMATION: Nontoxic goiter. COMPARISON: None available. TECHNIQUE: Linear transducer grayscale and color Doppler examination with attention to the region of the thyroid. FINDINGS: SIZE: Measurements of the thyroid lobes and nodules are given in sagittal, anteroposterior and transverse dimensions respectively. Right Thyroid Lobe: 4.1 x 2.0 x 1.3 cm, volume 5.6 mL. Parenchyma: The gland echotexture is homogeneous. Thyroid vascularity is normal. Left Thyroid Lobe: 5.3 x 1.7 x 1.7 cm, volume 8.0 mL. Parenchyma: The gland echotexture is homogeneous. Thyroid vascularity is normal. Isthmus: 0.6 cm in maximum AP dimension. Estimated total number of nodules greater than or equal to 1 cm: 0. Trap Setter nodules are described as follows: 1. Location: Right mid pole.. Size: 0.4 x 0 0.4, 0.3 cm, volume 0.03 mL. Nodule characteristics: Composition: Cystic(0). Echogenicity: None Shape: Wider than taller Margins: Smooth (0). Echogenic Foci: None (0). ACR TI-RADS total points: 0 ACR TI-RADS category: 1 2. Location: Left midpole. Size: 0.8 x 0 0.5-0.9 cm, volume 0.21 mL. Nodule characteristics: Composition: Solid (2). Echogenicity: Hyperechoic (1). Shape: Wider than taller Margins: Smooth (0). Echogenic Foci: None (0). ACR TI-RADS total points: 5 ACR TI-RADS category: 4 NODES: No lymphadenopathy is seen in the tissue surrounding the thyroid gland. US/US thyroid IMPRESSION: Subcentimeter solid lesion left midpole with 5 total points and TI Rads 4. Recommend follow-up in one year. ACR TI-RADS RECOMMENDATION REFERENCE: Ultrasound-guided fine-needle aspiration, followup ultrasound, no further follow up. * TR1 (0 point) and TR2 (2 points): No FNA or follow up. * TR3 (3 points): FNA if more than or equal to 2.5 cm in maximum dimension, followup ultrasound in 1, 3 and 5 years if 1.5 to 2.4 cm in maximum dimension. * TR4 (4-6 points): FNA if more than or equal to 1.5 cm in maximum dimension, followup ultrasound in 1, 2, 3 and 5 years if 1 to 1.4 cm in maximum dimension. * TR5 (more than or equal to 7 points): FNA if more than or equal to 1 cm in maximum dimension, followup ultrasound every year for 5 years if 0.5 to 0.9 cm in maximum dimension. * TR3, TR4 or TR5 nodules that are below the size threshold for followup receive no follow up. Electronically signed by: Gilbert Flores MD 05/14/2025 11:58 AM HERO [facility]
--- OUTSIDE RECORDS SUMMARY | 2025-05-14 11:23 | XMS_ITS | Clinical Summary ---
Author Organization [facility] Address [address] [place] [address] Phone Care Team Providers Care Form Block Maker Name Role Phone Amanda Eli MD Primary Care Provider Encounters Date Type Department Care Team Description 03/18/2025 Orders Only [facility] at the [address], [address] [place] [address] Deondre, Chana Varicose veins of lower extremities with complications, unspecified laterality (Primary Dx) 03/18/2025 Orders Only [facility] at the [address], [address] [place] [address] Deondre, Chana Varicose veins of lower extremity, unspecified laterality, unspecified whether complicated (Primary Dx) 03/13/2025 Transcribe Orders [facility] Referral Management [address] [place] [address] Amanda Eli MD from Last 3 Months [...] Info) Description 05/28/2025 1:00 PM EST Appointment [facility] [place] [address], [address] [place] [address] Ralf Bui MD [address] [place] [address] [address] [email or web address] [email or web address] 05/28/2025 2:00 PM EST Office Visit [facility] [place] [address], [address] [place] [address] Adrianna Orozco, TECHNICAL OPERATOR [address] [place] [address] [phone] [email or web address] Health Maintenance Due Date Last Done [...] OF STATE PPO BLUE CROSS OUT OF [facility] PPO BLUE CROSS OUT OF STATE PPO Care Teams Form Block Maker Relationship Specialty Start Date End Date Amanda Eli MD [address] [place] [address] PCP - General Internal Medicine 03/03/25 Additional Source Comments The information contained in this document represents components of the legal health record. It is not the complete legal health record.[facility]
--- OUTSIDE RECORDS SUMMARY | 2025-05-14 11:23 | XMS_ITS | Encounter Summary ---
Author Organization [facility] Address [address] [place] [phone] Phone Care Team Providers Care Summer Law Clerk Name Role Phone Amanda Eli MD Primary Care Provider [phone] Reason for Referral * Consultation (Within 1 month) - Pending Review Specialty Diagnoses / Procedures Referred By Lorne ponce Referred To Contact Amanda Eli MD Phone: tel: fax: Ralf Bui MD [address] [place] [address] Phone: tel: fax: mailto:[email or web address] Referral ID Status Reason Start Date Expiration Date V isits Requested Visits Authorized [id number] Pending Review 03/13/2025 03/13/2026 1 1 Encounter Details Date Type Department Care Team (Late st Contact Info) Description 03/13/2025 Transcribe Orders [facility] Referral Management [address] [place] [address] Amanda Eli MD [facility] [place] [address] Social History Tobacco Use Types Packs/Day Years [...] Info) Description 05/28/2025 1:00 PM EST Appointment [facility] [place] [address] [facility], [address] [place] [address] Ralf Bui MD [address] [place] [address] [address] [email or web address] 05/28/2025 2:00 PM EST Office Visit [facility] [place] [address] [facility], [address] [place] [address] Adrianna Orozco CNP [address] [place] [phone] [email or web address] Scheduled Referrals Name Type Priority Associated Diagnoses Order Schedule Ambulatory referral to [facility]/Stroke Outpatient Referral Routine Ordered: 03/13/2025 documented as of this encounter Visit Diagnoses Not on filedocumented in this encounter Care Teams Summer Law Clerk Relationship Specialty Start Date End Date Amanda Eli MD [address] [place] [id number] PCP - General Internal Medicine 03/03/25 documented as of this encounter Additional Source Comments The information contained in this document represents components of the legal health record. It is not the complete legal health record.[facility]
--- OUTSIDE RECORDS SUMMARY | 2025-05-14 11:23 | XMS_ITS | Patient Health Record ---
Author Organization [facility] Address [address] [place] [address] Care Team Providers Care Sanding Machine Tender Automatic Name Role Phone Amanda Eli MD Primary Care Provider Sumaya Carvajal Unavailable [phone] Allergies No Known Allergies Reason For Referral [...] W/U Status Risk Notes Problem Postmenopausal bleeding (75450878) Postmenopausal bleeding (N95.0) Active confirmed Problem Malignant neoplasm of female breast (777685700) Malignant neoplasm of unspecified site of left female breast (C50.912) Active confirmed Problem Morbid obesity (disorder) (512906240) Morbid (severe) obesity due to excess calories (E66.01) Active confirmed Problem Anxiety disorder (309624692) Anxiety disorder, unspecified (F41.9) Active confirmed Problem Personal history of primary malignant neoplasm of breast (930651110) Personal history of malignant neoplasm of breast (Z85.3) Active confirmed Problem Malignant neoplasm of female breast (310425663) Malignant neoplasm of other specified sites of female breast (174.8) Active confirmed Diag Problem Leiomyoma of uterus (10855420) Leiomyoma of uterus, unspecified (218.9) Active confirmed Major Problem Type II diabetes mellitus without complication (702661850) Diabetes mellitus without mention of complication, type II or unspecified type, not stated as uncontrolled (250.00) Active confirmed Major Problem Obesity (072539161) Obesity, unspecified (278.00) Active confirmed Diag Problem Benign essential hypertension (4404680) Essential hypertension, benign (401.1) Active confirmed Major Problem Breast lump (34092561) Lump or mass in breast (611.72) Active confirmed Diag Problem Menopausal symptom (56452876) Symptomatic menopausal or female climacteric states (627.2) Active confirmed Diag Problem Gynecological examination normal (580421225468971) Routine gynecological examination (V72.31) Active confirmed Major Problem Screening for malignant neoplasm of colon (945411339) Special screening for malignant neoplasms, colon (V76.51) [...] End Date [employer] [address] [place] [phone] [id number] LISASTEVENDEENA Self - patient is the insured [...]
== END 2025-05-14 11:21 | disposition home or self-care (01) ==
LOC: HO.HMGCX 11:20
PROVIDERS: PCP Internal Medicine; Visit Provider Internal Medicine
DX: E04.9 Nontoxic goiter, unspecified (principal)
CPT/HCPCS: 76536

== ENCOUNTER → 2025-05-14 11:21 | Outpatient (BNV) | payer BC, SELFPAY | PROVIDERS: PCP Internal Medicine; Visit Provider Radiology Diagnostic Radiology | DX: E04.9 Nontoxic goiter, unspecified (principal) | CPT/HCPCS: 76536 ==